=== PATIENT | male | born 1960 | race Caucasian/White ===

== ENCOUNTER 2016-12-17 11:10 | Emergency (ER) | payer OTHER ==
[~2016-12-17] VITALS: Ht 182.9 cm; Wt 75.0 kg
[~2016-12-17 11:10] MED LIST: OMEP40CA2 PO
[2016-12-17 11:12] VITALS: BP 134/87; PULSE 92; RESP 18; TEMP 98.1; O2SAT 96
[2016-12-17] MEDS ORDERED: SODIUM CHLOR 0.9% 1000 ML INJ 1,000 ML IV SCH (11:40)
[2016-12-17] MEDS ORDERED: PANTOPRAZOLE SODIUM 40 MG VIAL IVP ONE (11:45)
[2016-12-17] MEDS ORDERED: SODIUM CHLORIDE 0.9% FLUSH 5 ML FLUSH IVF PRN (11:45)
[2016-12-17] MEDS ORDERED: ONDANSETRON HCL 4 MG/2 ML VIAL IVP ONE (11:45)
--- NOTE | 2016-12-17 11:49 | PD ---
HPI Chief Complaint: Alcohol/Drug Intoxication Time Seen by Provider: 11:44 Travel History International Travel<30 days: No Contact w/Intl Traveler<30days: No Traveled to known affect area: No History of Present Illness HPI Patient comes in the emergency department reporting try detox himself from alcohol over the past week. Patient reports he has a detox center to go, but his family wanted him to be evaluate his he's been having diarrhea and vomiting over the past week. He reports his had similar but hers resolved. Patient denies any fevers, chest pain, shortness of breath, blood in vomit or stool, melena, or abdominal pain. Patient reports he has not been able to get that much secondary to not keeping much down. PFSH Past Medical History Anxiety: Yes Depression: Yes Cancer: No Cardiovascular Problems: Yes (HTN) Diabetes: No Endocrine: No Genitourinary: No Immune Disorder: No Musculoskeletal: Yes (NECK INJURY/STRAIN) Psychiatric: Yes (PTSD) Reproductive: No Respiratory: Yes (copd) Myocardial Infarction: No Past Surgical History Other Surgery: Yes Social History Alcohol Use: Yes (6pk day) Tobacco Use: Yes (2 PPD) Substance Use: Yes (marijuana) Allergies-Medications (Allergen,Severity, Reaction): Coded Allergies: Trazodone (Verified Adverse Reaction, Intermediate, 12/17/16) RESTLESS LEG SYMPTOMS Wellbutrin (Verified Adverse Reaction, Intermediate, 12/17/16) RESTLESS LEG SYMPTOMS Reported Meds & Prescriptions Reported Meds & Active Scripts Active Zofran Odt (Ondansetron Odt) 4 Mg Tab 4 Mg SL Q6HR PRN Review of Systems Except as stated in HPI: all other systems reviewed are Neg Physical Exam Narrative GENERAL: Well-developed, well nourished, in no acute distress, and non-ill appearing. SKIN: Warm and dry. HEAD: Atraumatic. Normocephalic. EYES: Pupils equal and round. EOMI. No scleral icterus. No injection or drainage. ENT: No nasal bleeding or discharge. Mucous membranes pink and moist. NECK: Trachea midline. No JVD. Supple. No nuclear rigidity. CARDIOVASCULAR: Regular rate and rhythm. No murmur appreciated. RESPIRATORY: No accessory muscle use. No respiratory distress. Clear to auscultation. Breath sounds equal bilaterally. GASTROINTESTINAL: Abdomen soft, non-tender, nondistended. Hepatic and splenic margins not palpable. Normal bowel sounds 4. No pulsatile mass. MUSCULOSKELETAL: No obvious deformities. No clubbing. No cyanosis. No edema. Full range of motion. NEUROLOGICAL: Awake and alert. No obvious cranial nerve deficits. Motor grossly within normal limits. Normal speech. PSYCHIATRIC: Appropriate mood and affect; insight and judgment normal. Data Data Last Documented VS Vital Signs Date Time Temp Pulse Resp B/P Pulse Ox O2 Delivery O2 Flow Rate FiO2 12/17/16 11:55 98 12/17/16 11:12 98.1 92 18 134/87 Room Air Orders Complete Blood Count With Diff (12/17/16 11:40) Comprehensive Metabolic Panel (12/17/16 11:40) Lipase (12/17/16 11:40) Prothrombin Time / Inr (Pt) (12/17/16 11:40) Act Partial Throm Time (Ptt) (12/17/16 11:40) Iv Access Insert/Monitor (12/17/16 11:40) Ecg Monitoring (12/17/16 11:40) Oximetry (12/17/16 11:40) NPO (12/17/16 11:40) Ondansetron Inj (Zofran Inj) (12/17/16 11:45) Pantoprazole Inj (Protonix Inj) (12/17/16 11:45) Sodium Chlor 0.9% 1000 Ml Inj (Ns 1000 M (12/17/16 11:40) Sodium Chloride 0.9% Flush (Ns Flush) (12/17/16 11:45) Lorazepam Inj (Ativan Inj) (12/17/16 13:45) Labs Laboratory Tests Test 12/17/16 12:25 White Blood Count 9.4 TH/MM3 Red Blood Count 4.52 MIL/MM3 Hemoglobin 14.9 GM/DL Hematocrit 42.4 % Mean Corpuscular Volume 93.8 FL Mean Corpuscular Hemoglobin 33.0 PG Mean Corpuscular Hemoglobin 35.2 % Concent Red Cell Distribution Width 13.2 % Platelet Count 303 TH/MM3 Mean Platelet Volume 7.7 FL Neutrophils (%) (Auto) 62.3 % Lymphocytes (%) (Auto) 29.8 % Monocytes (%) (Auto) 6.4 % Eosinophils (%) (Auto) 1.0 % Basophils (%) (Auto) 0.5 % Neutrophils # (Auto) 5.9 TH/MM3 Lymphocytes # (Auto) 2.8 TH/MM3 Monocytes # (Auto) 0.6 TH/MM3 Eosinophils # (Auto) 0.1 TH/MM3 Basophils # (Auto) 0.0 TH/MM3 CBC Comment DIFF FINAL Differential Comment Prothrombin Time 10.5 SEC Prothromb Time International 1.0 RATIO Ratio Activated Partial 33.2 SEC Thromboplast Time Sodium Level 127 MEQ/L Potassium Level 3.7 MEQ/L Chloride Level 93 MEQ/L Carbon Dioxide Level 24.4 MEQ/L Anion Gap 10 MEQ/L Blood Urea Nitrogen 7 MG/DL Creatinine 0.78 MG/DL Estimat Glomerular Filtration 104 ML/MIN Rate Random Glucose 106 MG/DL Calcium Level 7.9 MG/DL Total Bilirubin 0.8 MG/DL Aspartate Amino Transf 134 U/L (AST/SGOT) Alanine Aminotransferase 96 U/L (ALT/SGPT) Alkaline Phosphatase 112 U/L Total Protein 6.9 GM/DL Albumin 3.4 GM/DL Lipase 128 U/L MDM Medical Decision Making Medical Screen Exam Complete: Yes Emergency Medical Condition: Yes Differential Diagnosis Alcohol withdrawal, alcohol abuse, gastritis, vomiting, diarrhea, pancreatitis, electrolyte abnormality, dehydration, other Narrative Course The patient presented with vomiting and diarrhea.. The patient appeared comfortable, hydrated and the abdominal exam was unremarkable and nontender to me, and without defined focal tenderness there was no evidence of an acute, surgical abdomen at this time. The patient did not appear clinically significantly dehydrated however appeared mildly volume depleted and was given IVF hydration. The patient subjectively and objectively noted improvement. The patient was able to tolerate fluids at discharge. There was no clinical evidence to support cholecystitis/cholelithiasis, pancreatitis, perforation of gastric ulcer, colitis, diverticulitis, peritonitis, obstruction, volvulus, early appendicitis, or hernial incarceration or strangulation at this time. There was no evidence to support vascular pathology such as AAA, mesenteric ischemia, nor significant GIB. There was also no clinical evidence by history, exam or risk factors to suggest atypical presentation of cardiac disease such as ACS, AMI or atypical angina. No evidence to suggest genitourinary etiology as well. During the course of the ED visit, the patient noted improvement. Clinical picture was discussed with the patient, as well as plan of care. The patient was instructed to follow up with their physician. Abdominal pain warnings were discussed with the patient. The patient is to return if worsens, pain worsens or changes, develop fever, inability to tolerate fluids with or without vomiting, unable to establish follow up or as needed. The patient agrees with plan. Patient in no obvious distress upon re-evaluation. All pertinent laboratory result(s) discussed with patient. Patient was asked if they wanted to speak to my attending, which the patient did not wish to do at this time. Any questions/ concerns in reference to patient diagnosis/condition discussed and clarified prior to patient's discharge. Reinforced sheer importance of close follow up with patient's primary physician or primary care clinic. Instructed patient to return to ED immediately, if symptoms return/worsen. Pt showed understanding of above instructions. Further instructions and recommendations were detailed in discharge paperwork. Pt ambulated without difficulty out of ED at discharge. Diagnosis Primary Impression: Vomiting and diarrhea Additional Impression: ETOH abuse Referrals: [facility] Patient Instructions: Abuse of Alcohol (ED), Acute Diarrhea (GEN), Acute Nausea and Vomiting (ED), General Instructions Additional Instructions: Follow-up with your primary care physician, [facility], or other detox center for further evaluation. Take all medication as prescribed. Use over-the -counter Imodium-AD as needed for symptomatic relief of diarrhea. Follow instructions on the packaging. Drink plenty of non-caffeinated and nonalcoholic fluids. Return to the emergency department if symptoms get worse. Med/Other Pt SpecificInfo: Prescription(s) given Scripts Ondansetron Odt (Zofran Odt)4 Mg Tab4 Mg SL Q6HR PRN (Nausea/Vomiting) #9 TAB Ref 0 Prov:Av Monte MD 12/17/16 Disposition: 01 DISCHARGE HOME Condition: Stable David Weiner Dec 17, 2016 11:49
[2016-12-17 11:55] VITALS: O2SAT 98
[2016-12-17 12:47] LABS: AUTOMATED NEUTROPHIL # 5.9 TH/MM3 (1.8-7.7); BASOPHIL % 0.5 % (0.0-2.0); EOSINOPHIL # 0.1 TH/MM3 (0-0.4); HEMATOCRIT 42.4 % (39.0-51.0); HEMO FLAGS DIFF FINAL; LYMPH % 29.8 % (9.0-44.0); LYMPHOCYTE # 2.8 TH/MM3 (1.0-4.8); MEAN CELL VOLUME 93.8 FL (80.0-100.0); MEAN CORPUSCULAR HGB CONC 35.2 % (32.0-36.0); MONO % 6.4 % (0.0-8.0); NEUT % 62.3 % (16.0-70.0); PLATELET COUNT 303 TH/MM3 (150-450); RED BLOOD COUNT 4.52 MIL/MM3 (4.50-5.90); RED CELL DISTRIBUTION WIDTH 13.2 % (11.6-17.2); WHITE BLOOD COUNT 9.4 TH/MM3 (4.0-11.0)
[2016-12-17 12:55] LABS: APTT (PATIENT) 33.2 SEC (24.3-30.1); PROTHROMBIN TIME - PATIENT 10.5 SEC (9.8-11.6)
[2016-12-17 13:03] LABS: ALT (GPT) 96 U/L (12-78); ANION GAP 10 MEQ/L (5-15); AST (GOT) 134 U/L (15-37); BICARBONATE 24.4 MEQ/L (21.0-32.0); BLOOD UREA NITROGEN 7 MG/DL (7-18); CHLORIDE 93 MEQ/L (98-107); GLOMERULAR FILTRATION RATE 104 ML/MIN (>89); POTASSIUM 3.7 MEQ/L (3.5-5.1); SODIUM (NA) 127 MEQ/L (136-145)
[2016-12-17 13:05] LABS: ALKALINE PHOSPHATASE 112 U/L (45-117); TOTAL BILIRUBIN ADULT 0.8 MG/DL (0.2-1.0)
[2016-12-17] MEDS ORDERED: LORazepam 2 MG/ML VIAL IV PUSH ONE (13:45)
[2016-12-17] MEDS ORDERED: ZOFR4TAB3 SL (13:54)
== END 2016-12-17 14:57 | disposition home or self-care (01) ==
LOC: NEPE 11:10
DX: R19.7 Diarrhea, unspecified (principal); R11.10 Vomiting, unspecified; F10.10 Alcohol abuse, uncomplicated
CPT/HCPCS: 80053; 83690; 85025; 85610; 85730; 96361; 96374; 96375; 99284; C9113; J2060; J2405; J7030

== ENCOUNTER 2017-01-28 19:52 | Emergency (ER) | payer OTHER ==
[~2017-01-28] VITALS: Ht 182.9 cm; Wt 80.0 kg
[~2017-01-28 19:52] MED LIST changes: -OMEP40CA2 PO; +ZOFR4TAB3 SL
[2017-01-28 19:54] VITALS: BP 116/70; PULSE 104; RESP 16; TEMP 97.8; O2SAT 98
[2017-01-28 21:57] LABS: AUTOMATED NEUTROPHIL # 13.1 TH/MM3 (1.8-7.7); BASOPHIL # 0.1 TH/MM3 (0-0.2); BASOPHIL % 0.4 % (0.0-2.0); EOSINOPHIL # 0.2 TH/MM3 (0-0.4); EOSINOPHIL % 1.1 % (0.0-4.0); HEMATOCRIT 33.9 % (39.0-51.0); LYMPH % 9.6 % (9.0-44.0); LYMPHOCYTE # 1.6 TH/MM3 (1.0-4.8); MEAN CELL VOLUME 99.1 FL (80.0-100.0); MEAN CORPUSCULAR HEMOGLOBIN 33.9 PG (27.0-34.0); MEAN CORPUSCULAR HGB CONC 34.2 % (32.0-36.0); MONO % 11.7 % (0.0-8.0); NEUT % 77.2 % (16.0-70.0); PLATELET COUNT 404 TH/MM3 (150-450); RED BLOOD COUNT 3.41 MIL/MM3 (4.50-5.90); RED CELL DISTRIBUTION WIDTH 14.4 % (11.6-17.2); WHITE BLOOD COUNT 16.9 TH/MM3 (4.0-11.0)
[2017-01-28 21:58] LABS: HEMO FLAGS AUTO DIFF
[2017-01-28 22:20] LABS: ANION GAP 11 MEQ/L (5-15); AST (GOT) 37 U/L (15-37); BICARBONATE 24.4 MEQ/L (21.0-32.0); BLOOD UREA NITROGEN 9 MG/DL (7-18); CHLORIDE 102 MEQ/L (98-107); GLOMERULAR FILTRATION RATE 81 ML/MIN (>89); POTASSIUM 4.5 MEQ/L (3.5-5.1); SODIUM (NA) 137 MEQ/L (136-145)
[2017-01-28 22:23] LABS: ALKALINE PHOSPHATASE 145 U/L (45-117); ALT (GPT) 91 U/L (12-78); TOTAL BILIRUBIN ADULT 0.2 MG/DL (0.2-1.0)
[2017-01-28 22:25] LABS: SCAN/DIFF AUTO DIFF CONFIRMED
[2017-01-28 22:33] VITALS: BP 120/77; PULSE 93; RESP 18; O2SAT 98
[2017-01-28] MEDS ORDERED: BACT400T PO (22:36)
[2017-01-28] MEDS ORDERED: LIDOCAINE 2%/EPINEPHrine 1:100,000 30ML MDV INFIL ONE (22:45)
[2017-01-28] MEDS ORDERED: CLINDAMYCIN PHOS 600 MG/4 ML VIAL IM ONE (23:00)
--- NOTE | 2017-01-28 23:01 | PD ---
Physical Exam Date Seen by Provider: Jan 28, 2017 Narrative For full history and physical examination please see previous provider's note. I performed an I&D to the abscess. Data Data Last Documented VS Vital Signs Date Time Temp Pulse Resp B/P Pulse Ox O2 Delivery O2 Flow Rate FiO2 01/28/17 22:33 93 18 120/77 98 Room Air 01/28/17 19:54 97.8 Orders Complete Blood Count With Diff (01/28/17 20:42) Comprehensive Metabolic Panel (01/28/17 20:42) Lactic Acid Sepsis Protocol (01/28/17 20:42) Blood Culture (01/28/17 20:42) Lidocai-Epi 2%-1:100,000 Inj (Xylocaine- (01/28/17 22:45) Labs Laboratory Tests Test 01/28/17 21:22 White Blood Count 16.9 TH/MM3 Red Blood Count 3.41 MIL/MM3 Hemoglobin 11.6 GM/DL Hematocrit 33.9 % Mean Corpuscular Volume 99.1 FL Mean Corpuscular Hemoglobin 33.9 PG Mean Corpuscular Hemoglobin 34.2 % Concent Red Cell Distribution Width 14.4 % Platelet Count 404 TH/MM3 Mean Platelet Volume 7.6 FL Neutrophils (%) (Auto) 77.2 % Lymphocytes (%) (Auto) 9.6 % Monocytes (%) (Auto) 11.7 % Eosinophils (%) (Auto) 1.1 % Basophils (%) (Auto) 0.4 % Neutrophils # (Auto) 13.1 TH/MM3 Lymphocytes # (Auto) 1.6 TH/MM3 Monocytes # (Auto) 2.0 TH/MM3 Eosinophils # (Auto) 0.2 TH/MM3 Basophils # (Auto) 0.1 TH/MM3 CBC Comment AUTO DIFF Differential Comment AUTO DIFF CONFIRMED Sodium Level 137 MEQ/L Potassium Level 4.5 MEQ/L Chloride Level 102 MEQ/L Carbon Dioxide Level 24.4 MEQ/L Anion Gap 11 MEQ/L Blood Urea Nitrogen 9 MG/DL Creatinine 0.97 MG/DL Estimat Glomerular Filtration 81 ML/MIN Rate Random Glucose 91 MG/DL Lactic Acid Level 0.8 mmol/L Calcium Level 9.3 MG/DL Total Bilirubin 0.2 MG/DL Aspartate Amino Transf 37 U/L (AST/SGOT) Alanine Aminotransferase 91 U/L (ALT/SGPT) Alkaline Phosphatase 145 U/L Total Protein 7.6 GM/DL Albumin 2.9 GM/DL [facility] Medical Record Reviewed: Yes Supervised Visit with RABIA: Yes Procedures Procedure Narrative After the risks and benefits were discussed the following procedure was performed: INCISION AND DRAINAGE OF ABSCESS: The area was prepped and was sterilely draped. A subcutaneous wheal of 1 % Xylocaine with a total number 2mL was used to anesthetize the area. The area was properly anesthetized. A number 11 scalpel was used to make a 1 -cm incision across the area of the abscess. Cultures were obtained. The abscess was drained an irrigated with normal saline. Quarter inch iodoform packing was placed in the wound. Sterile dressing applied. Patient advised to have packing removed in two days. Mony Pastor Jan 28, 2017 23:01
[2017-01-29] MEDS ORDERED: ACETAMINOPHEN/HYDROcodone 325 MG/5 MG TAB PO ONE
[2017-01-29] MEDS ORDERED: CLIN1CAP6 PO (00:05)
--- NOTE | 2017-01-29 00:05 | PD ---
HPI Chief Complaint: Skin Problem Time Seen by Provider: 22:38 Travel History International Travel<30 days: No Contact w/Intl Traveler<30days: No Traveled to known affect area: No History of Present Illness HPI 56-year-old male presents with abscess to his left shoulder over the past week or so. He got antibiotics through the physician he saw and has been on them now for a couple of days. It is Bactrim. He states that the pain is worse and he has not had it drained yet. He denies other concurrent complaints. Quality is sharp. Severity is worsening. PFSH Past Medical History Anxiety: Yes Depression: Yes Cancer: No Cardiovascular Problems: Yes (HTN) Diabetes: No Endocrine: No Gastrointestinal Disorders: No Genitourinary: No Immune Disorder: No Musculoskeletal: Yes (NECK INJURY/STRAIN, L knee surgery) Psychiatric: Yes (PTSD) Reproductive: No Respiratory: Yes (copd) Myocardial Infarction: No Past Surgical History Other Surgery: Yes Social History Alcohol Use: Yes (6pk day - pt denies) Tobacco Use: Yes (2 PPD) Substance Use: Yes (marijuana) Allergies-Medications (Allergen,Severity, Reaction): Coded Allergies: Trazodone (Verified Adverse Reaction, Intermediate, 01/28/17) RESTLESS LEG SYMPTOMS Wellbutrin (Verified Adverse Reaction, Intermediate, 01/28/17) RESTLESS LEG SYMPTOMS Reported Meds & Prescriptions Reported Meds & Active Scripts Active Clindamycin (Clindamycin HCl) 300 Mg Cap 300 Mg PO TID 7 Days Zofran Odt (Ondansetron Odt) 4 Mg Tab 4 Mg SL Q6HR PRN Reported Bactrim (Sulfamethoxazole-Trimethoprim) 400-80 Mg Tab Unknown Dose PO BID Review of Systems Except as stated in HPI: all other systems reviewed are Neg Physical Exam Narrative GENERAL: Well-nourished, well-developed patient. SKIN: To left posterior shoulder near base of trapezius area there is a large abscess noted without active drainage without significant overlying cellulitis, no associated crepitus, abscess does not extend into neck or shoulder area HEAD: Normocephalic and atraumatic. EYES: No injection or drainage. ENT: No nasal drainage noted. NECK: Supple, trachea midline. CARDIOVASCULAR: Regular rate and rhythm RESPIRATORY: Breath sounds equal bilaterally. No accessory muscle use. EXTREMITIES: No edema. NEUROLOGICAL: Awake and alert. Motor and sensory grossly within normal limits. Normal speech. Data Data Last Documented VS Vital Signs Date Time Temp Pulse Resp B/P Pulse Ox O2 Delivery O2 Flow Rate FiO2 01/28/17 22:33 93 18 120/77 98 Room Air 01/28/17 19:54 97.8 Orders Complete Blood Count With Diff (01/28/17 20:42) Comprehensive Metabolic Panel (01/28/17 20:42) Lactic Acid Sepsis Protocol (01/28/17 20:42) Blood Culture (01/28/17 20:42) Lidocai-Epi 2%-1:100,000 Inj (Xylocaine- (01/28/17 22:45) Wound Culture And Gram Stain (01/28/17 23:00) Clindamycin Inj (Cleocin Inj) (01/28/17 23:00) Acetamin-Hydrocod 325-5 Mg ([place] 5-325 (01/29/17 00:00) Labs Laboratory Tests Test 01/28/17 21:22 White Blood Count 16.9 TH/MM3 Red Blood Count 3.41 MIL/MM3 Hemoglobin 11.6 GM/DL Hematocrit 33.9 % Mean Corpuscular Volume 99.1 FL Mean Corpuscular Hemoglobin 33.9 PG Mean Corpuscular Hemoglobin 34.2 % Concent Red Cell Distribution Width 14.4 % Platelet Count 404 TH/MM3 Mean Platelet Volume 7.6 FL Neutrophils (%) (Auto) 77.2 % Lymphocytes (%) (Auto) 9.6 % Monocytes (%) (Auto) 11.7 % Eosinophils (%) (Auto) 1.1 % Basophils (%) (Auto) 0.4 % Neutrophils # (Auto) 13.1 TH/MM3 Lymphocytes # (Auto) 1.6 TH/MM3 Monocytes # (Auto) 2.0 TH/MM3 Eosinophils # (Auto) 0.2 TH/MM3 Basophils # (Auto) 0.1 TH/MM3 CBC Comment AUTO DIFF Differential Comment AUTO DIFF CONFIRMED Sodium Level 137 MEQ/L Potassium Level 4.5 MEQ/L Chloride Level 102 MEQ/L Carbon Dioxide Level 24.4 MEQ/L Anion Gap 11 MEQ/L Blood Urea Nitrogen 9 MG/DL Creatinine 0.97 MG/DL Estimat Glomerular Filtration 81 ML/MIN Rate Random Glucose 91 MG/DL Lactic Acid Level 0.8 mmol/L Calcium Level 9.3 MG/DL Total Bilirubin 0.2 MG/DL Aspartate Amino Transf 37 U/L (AST/SGOT) Alanine Aminotransferase 91 U/L (ALT/SGPT) Alkaline Phosphatase 145 U/L Total Protein 7.6 GM/DL Albumin 2.9 GM/DL MDM Medical Decision Making Medical Screen Exam Complete: Yes Emergency Medical Condition: Yes Medical Record Reviewed: Yes (past history confirmed) Interpretation(s) CBC & BMP Diagram 01/28/17 21:22 Differential Diagnosis Abscess, cellulitis, bite Narrative Course Blood work shows elevated white count; patient needs I and D which PA will assist with Will dose with clindamycin here and patient will come back in 2 days for recheck ,Patient denies any new complaints and states that they are feeling better. Patient happy with care, all questions answered. Patient knows that follow up is incumbent on them and to return to the emergency room immediately if new or worsening symptoms develop. Patient given strict return precautions, vitals reviewed and are normal, agrees to further workup as an outpatient. Diagnosis Primary Impression: Back abscess Patient Instructions: General Instructions Additional Instructions: Return in 2 days for recheck, return sooner with any vomiting, fever or other concerns, continue Bactrim and fill clindamycin and start taking this Med/Other Pt SpecificInfo: Prescription(s) given Scripts Clindamycin 300 Mg [id number] Mg PO TID 7 Days Ref 0 Prov:Linda Hill MD 01/29/17 Disposition: 01 DISCHARGE HOME Condition: Stable Linda Hill MD Jan 29, 2017 00:05
== END 2017-01-29 01:00 | disposition home or self-care (01) ==
LOC: NEPE 19:52
DX: L02.212 Cutaneous abscess of back [any part, except buttock and flank] (principal); B95.62 Methicillin resistant Staphylococcus aureus infection as the cause of diseases classified elsewhere; I10 Essential (primary) hypertension; J44.9 Chronic obstructive pulmonary disease, unspecified; F43.10 Post-traumatic stress disorder, unspecified; F17.210 Nicotine dependence, cigarettes, uncomplicated
CPT/HCPCS: 10061; 80053; 83605; 85025; 86403; 87040; 87070; 87186; 87205; 96372

== ENCOUNTER 2017-01-31 08:50 | Emergency (ER) | payer OTHER ==
[~2017-01-31] VITALS: Ht 182.9 cm; Wt 80.0 kg
[~2017-01-31 08:50] MED LIST changes: +BACT400T PO; +CLIN1CAP6 PO
[2017-01-31 08:52] VITALS: BP 126/80; PULSE 94; RESP 18; TEMP 98.1; O2SAT 96
--- NOTE | 2017-01-31 10:01 | PD ---
HPI Chief Complaint: Wound/Suture/Staple Re-Check Time Seen by Provider: 09:58 Travel History International Travel<30 days: No Contact w/Intl Traveler<30days: No Traveled to known affect area: No History of Present Illness HPI 56-year-old male presents to the emergency department for evaluation of abscess that was incised and drained on January 28, 2017. He was prescribed clindamycin. He states it is improving. He denies any fevers or chills. He denies any other complaints. PFSH Past Medical History Anxiety: Yes Depression: Yes Cancer: No Cardiovascular Problems: Yes (HTN) Diabetes: No Endocrine: No Gastrointestinal Disorders: No Genitourinary: No Immune Disorder: No Musculoskeletal: Yes (NECK INJURY/STRAIN, L knee surgery) Psychiatric: Yes (PTSD) Reproductive: No Respiratory: Yes (copd) Myocardial Infarction: No Past Surgical History Other Surgery: Yes Social History Alcohol Use: Yes (6pk day - pt denies) Tobacco Use: Yes (2 PPD) Substance Use: Yes (marijuana) Allergies-Medications (Allergen,Severity, Reaction): Coded Allergies: Trazodone (Verified Adverse Reaction, Intermediate, 01/28/17) RESTLESS LEG SYMPTOMS Wellbutrin (Verified Adverse Reaction, Intermediate, 01/28/17) RESTLESS LEG SYMPTOMS Reported Meds & Prescriptions Reported Meds & Active Scripts Active Clindamycin (Clindamycin HCl) 300 Mg Cap 300 Mg PO TID 7 Days Zofran Odt (Ondansetron Odt) 4 Mg Tab 4 Mg SL Q6HR PRN Reported Bactrim (Sulfamethoxazole-Trimethoprim) 400-80 Mg Tab Unknown Dose PO BID Review of Systems Except as stated in HPI: all other systems reviewed are Neg Physical Exam Narrative GENERAL: Well-developed well-nourished male patient, ambulatory. Afebrile. SKIN: Warm and dry. Patient has abscess, status post incised and drained, with packing noted. No surrounding erythema or fluctuance. HEAD: Normocephalic. Atraumatic. EYES: No scleral icterus. No injection or drainage. CARDIOVASCULAR: Regular rate and rhythm without murmurs, gallops, or rubs. RESPIRATORY: No accessory muscle use. MUSCULOSKELETAL: No cyanosis, or edema. Data Data Last Documented VS Vital Signs Date Time Temp Pulse Resp B/P Pulse Ox O2 Delivery O2 Flow Rate FiO2 01/31/17 08:52 98.1 94 18 126/80 96 MDM Medical Decision Making Medical Screen Exam Complete: Yes Emergency Medical Condition: Yes Medical Record Reviewed: Yes Differential Diagnosis Wound check versus abscess versus cellulitis Narrative Course 56 year old male presents to the emergency department for evaluation of an abscess to his left upper back status post incised and drained 3 days ago. Physical exam shows well-healing abscess. Packing is removed without difficulty. Abscess is irrigated. Sterile dressing is applied after antibiotic ointment is applied. Overall, symptoms are improving the patient states it feels much better. Patient is to continue antibiotic and is instructed on proper wound care. Patient is agreeable. The patient was discharged in stable condition with instructions, including return instructions and follow up instructions. Diagnosis Primary Impression: Back abscess Referrals: Primary Care Physician as needed Patient Instructions: Abscess Follow-up (ED), General Instructions Additional Instructions: Continue antibiotic as prescribed until gone. Clean twice daily with soap and water and apply [id number] antibiotic ointment. Warm, moist compresses. Keep clean and dry. Follow-up with your primary care physician. Return to the emergency department for any acute worsening of symptoms. Med/Other Pt SpecificInfo: No Change to Meds Disposition: 01 DISCHARGE HOME Condition: Stable Aishwarya Tovar Jan 31, 2017 10:01
== END 2017-01-31 10:32 | disposition home or self-care (01) ==
LOC: NEPB 08:50
DX: Z09 Encounter for follow-up examination after completed treatment for conditions other than malignant neoplasm (principal)
CPT/HCPCS: 99281

== ENCOUNTER 2018-04-26 17:31 | Emergency (ER) | payer SELFPAY ==
[~2018-04-26] VITALS: Ht 182.9 cm; Wt 72.5 kg
[~2018-04-26 17:31] MED LIST changes: -CLIN1CAP6 PO; +CLIN300C5 PO
[2018-04-26 17:40] VITALS: BP 113/76; PULSE 96; RESP 20; TEMP 98.3; O2SAT 97
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
[2018-04-26] MEDS ORDERED: LORazepam 2 MG/ML VIAL IV PUSH ONE (19:15)
[2018-04-26] MEDS ORDERED: SODIUM CHLOR 0.9% 1000 ML INJ 1,000 ML IV ONE (19:15)
[2018-04-26 20:22] LABS: BILIRUBIN, URINE NEG (NEG); BLOOD, URINE SMALL (NEG); GLUCOSE,URINE NEG (NEG); HYALINE CAST, URINE 2 /lpf (RARE); KETONE, URINE NEG (NEG); MUCUS URINE FEW /lpf (OCC); NITRITE,URINE NEG (NEG); PH, URINE 5.5 (5.0-8.5); URINE COLOR YELLOW (YELLW/STRAW); URINE LEUKOCYTE ESTERASE NEG (NEG)
[2018-04-26] MEDS ORDERED: CHLO25CA9 PO (20:41)
--- NOTE | 2018-04-27 14:43 | EKG ---
Date Performed: 04/26/2018 Time Performed: 18:26:53 PTAGE: 57 years EKG: Sinus rhythm POSSIBLE RIGHT VENTRICULAR CONDUCTION DELAY BORDERLINE ECG Since the PREVIOUS TRACING , no significant change noted PREVIOUS TRACIN07/15/2014 10.52 DOCTOR: Mj Leblanc Interpretating Date/Time 04/27/2018 14:42:22
== END 2018-04-26 21:25 | disposition home or self-care (01) ==
LOC: NEPD 17:31
DX: F10.239 Alcohol dependence with withdrawal, unspecified (principal); F12.90 Cannabis use, unspecified, uncomplicated; F17.200 Nicotine dependence, unspecified, uncomplicated
CPT/HCPCS: 80307; 81001; 93005; 96374; 99284; J2060; J7030

== ENCOUNTER 2018-06-02 14:36 | Inpatient (IN) ==
[2018-06-02] MEDS ORDERED: Midazolam Inj 5 MG/ML 1 ML Vial ONE ×2 (14:48→14:55)
[2018-06-02] MEDS ORDERED: ceFAZolin 2 GM Premix Inj 2 GM/50 ML PIGGYBACK IV.SIG ONE (14:49)
[2018-06-02] MEDS ORDERED: Diphtheria/Tetanus/Pertussis Vaccine Inj 0.5 ML Syringe IM ONE (14:50)
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
[2018-06-02 14:57] LABS: Baso # (Auto) 0.1 th/mm3 (0.0-0.2); Baso % (Auto) 1.1 % (0.0-2.0); Eos # (Auto) 0.1 th/mm3 (0.0-0.4); Hematocrit 41.6 % (39.0-51.0); Hemoglobin 14.2 gm/dL (13.0-17.0); Mean Corpuscular Volume 99.9 fL (80.0-100.0); Mean Platelet Volume 7.6 fL (7.0-11.0); Mono # (Auto) 0.4 th/mm3 (0.0-0.9); Mono % (Auto) 4.9 % (0.0-8.0); Platelet Count 260 th/mm3 (150-450); Red Blood Count 4.16 mil/mm3 (4.50-5.90); Red Cell Distribution Width 13.7 % (11.6-17.2); White Blood Count 8.6 th/mm3 (4.0-11.0)
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
[2018-06-02 15:08] LABS: Activated Partial Thrombo Time 23.6 sec (24.3-30.1); INR 0.9 Ratio; Prothrombin Time 9.6 sec (9.8-11.6)
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
[2018-06-02] MEDS ORDERED: Propofol Inj 500 MG/50 ML Vial ONE (16:03)
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
[2018-06-02] MEDS: Sod Chloride 0.9% Inj 1,000 ML IV.CONT SCH (18:26)
[2018-06-02] MEDS: Propofol 1000 mg/100 ml Inj 1,000 MG/100 ML BOTTLE IV.CONT PRN (18:53)
[2018-06-02] MEDS: fentaNYL 10 mcg/mL Premix Drip 2,500 MCG/250 ML BAG IV.SIG PRN (18:53)
[2018-06-02 20:02] LABS: ABG Base Excess -1.6 mmol/L (-2-2); ABG PCO2 34 mmHg (38-42); ABG PO2 160 mmHg (61-120)
[2018-06-03] MEDS: Sod Chloride 0.9% Inj 1,000 ML IV.CONT SCH ×2 (01:37→09:18)
[2018-06-03] MEDS: Propofol 1000 mg/100 ml Inj 1,000 MG/100 ML BOTTLE IV.CONT PRN ×2 (03:05→12:48)
[2018-06-03 07:19] LABS: Baso # (Auto) 0.1 th/mm3 (0.0-0.2); Eos # (Auto) 0.1 th/mm3 (0.0-0.4); Eos % (Auto) 0.9 % (0.0-4.0); Hematocrit 35.6 % (39.0-51.0); Lymph # (Auto) 2.5 th/mm3 (1.0-4.8); Lymph % (Auto) 29.4 % (9.0-44.0); Mean Corpuscular HGB Conc 33.8 % (32.0-36.0); Mean Corpuscular Hemoglobin 33.7 pg (27.0-34.0); Mean Corpuscular Volume 99.7 fL (80.0-100.0); Mono # (Auto) 0.6 th/mm3 (0.0-0.9); Mono % (Auto) 7.4 % (0.0-8.0); Neut # (Auto) 5.2 th/mm3 (1.8-7.7); Neut % (Auto) 61.3 % (16.0-70.0); Platelet Count 169 th/mm3 (150-450); Red Blood Count 3.57 mil/mm3 (4.50-5.90); Red Cell Distribution Width 13.9 % (11.6-17.2); White Blood Count 8.4 th/mm3 (4.0-11.0)
[2018-06-03 07:41] LABS: Calcium 7.6 mg/dL (8.5-10.1); Carbon Dioxide 22.5 meq/L (21.0-32.0); Potassium 3.9 meq/L (3.5-5.1)
[2018-06-03] MEDS: fentaNYL 10 mcg/mL Premix Drip 2,500 MCG/250 ML BAG IV.SIG PRN (09:13)
[2018-06-03] MEDS: Pantoprazole Inj 40 MG Vial IV.PUSH SCH (09:19)
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
[2018-06-03] MEDS ORDERED: Potassium Chlor 20 mEq Premix 20 MEQ/100 ML PIGGYBACK IV.SIG PRN (10:23)
[2018-06-03] MEDS ORDERED: Potassium Phosphate Inj 30 MMOL in Sodium Chlor 0.9% Inj 250 ML IV.SIG PRN (10:23)
[2018-06-03] MEDS ORDERED: Potassium Phosphate 500 MG Soluble Tablet PO PRN ×2 (10:23)
[2018-06-03] MEDS ORDERED: Magnesium Sulfate Inj 4 GM in Sodium Chlor 0.9% Inj 92 ML IV.SIG PRN (10:23)
[2018-06-03] MEDS ORDERED: Sodium Phosphate Inj 30 MMOL in Sodium Chlor 0.9% Inj 250 ML IV.SIG PRN (10:23)
[2018-06-03] MEDS ORDERED: Magnesium Sulfate Inj 2 GM in Sodium Chlor 0.9% Inj 96 ML IV.SIG PRN (10:23)
[2018-06-03] MEDS ORDERED: Potassium Chlor 40 mEq Premix 40 MEQ/100 ML PIGGYBACK IV.SIG PRN ×2 (10:23)
[2018-06-03] MEDS ORDERED: Magnesium Oxide 400 MG Tablet PO PRN (10:23)
[2018-06-03] MEDS ORDERED: levETIRAcetam 500mg/100mL Inj 100 ML IV.SIG SCH (11:00)
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
[2018-06-03] MEDS: LEVETIRACETAM 500 MG/100 ML IV.SIG SCH (12:45)
[2018-06-03] MEDS: Oral Hygiene Kit OROPHARYNG SCH ×2 (13:17→16:00)
--- NOTE | 2018-06-03 17:39 | P.PNNS ---
Subjective Interval history: Nurses report that patient went off sedation will awaken and follow commands Physical Exam Vital signs: Vital Signs 06/02/18 17:43 06/02/18 20:00 06/02/18 22:25 Temperature 98.8 F 99.1 F Pulse Rate 90 73 Respiratory Rate 16 16 Blood Pressure 109/71 Pulse Oximetry 100 100 06/03/18 00:00 06/03/18 04:00 06/03/18 05:02 Temperature 99.1 F 100.9 F H Pulse Rate 68 75 Respiratory Rate 16 16 16 Blood Pressure 102/70 99/63 L Pulse Oximetry 100 98 99 06/03/18 08:00 06/03/18 08:31 06/03/18 09:00 Temperature 100.8 F H Pulse Rate 90 75 Respiratory Rate 16 16 Blood Pressure 118/74 Pulse Oximetry 92 L 100 06/03/18 11:45 06/03/18 12:00 06/03/18 16:00 Temperature 101.1 F H 100.9 F H Pulse Rate 91 H 88 73 Respiratory Rate 20 16 16 Blood Pressure 114/72 112/72 Pulse Oximetry 100 06/03/18 16:48 Temperature Pulse Rate 77 Respiratory Rate 16 Blood Pressure Pulse Oximetry 100 Intake & Output 06/02/18 06/03/18 06/03/18 18:59 06:59 18:59 Intake Total 1100 / 1100 1600 / 1600 Output Total 400 / 400 500 / 500 Balance -400 / -400 600 / 600 1600 / 1600 Weight 57.1 kg 80.9 kg 78.7 kg Intake: IV 1100 / 1100 1600 / 1600 Diprivan 1000 mg/100 ml Inj 1, 100 / 100 100 / 100 000 mg In 100 ml @ 5 MCG/KG/MIN 1.713 mls/hr IV.CONT TITRATE PRN Rx#:[id number] NS Inj 1,000 ML @ 125 mls/hr IV 1000 / 1000 1000 / 1000 .CONT .Q8H [facility] Rx#:[id number] Ofirmev Inj 1,000 mg In 100 ml 100 / 100 @ 400 mls/hr IV.SIG Q6H PRN Rx# :[id number] fentaNYL 10 mcg/mL Premix Drip 250 / 250 2,500 mcg In 250 ml @ 50 MCG/HR 5 mls/hr IV.SIG TITRATE PRN Rx #:[id number] Keppra 500 mg/100 mL Premix 100 150 / 150 ML @ 400 mls/hr IV.SIG Q12H [facility] Rx#:[id number] Output: Urine Amount (Catheter) 400 / 400 500 / 500 Indwelling Temp Sensing 400 / 400 500 / 500 Catheter Other: Weight On Admission 80.9 kg Narrative: Patient still intubated and sedated. Exam limited due to the sedation - Urinary Catheter Management Indwelling Temp Sensing Catheter Cath placed during this visit: yes Reason for continuing: Hourly intake/output Insertion date: 06/02/18 Insertion time: 17:55 Assessment and Plan - Plan Patient is stable and appears to be improving neurologically To be considered for extubation and then will further assess
[2018-06-03 18:45] LABS: ABG Base Excess -1.9 mmol/L (-2-2); ABG PCO2 47 mmHg (38-42); ABG PO2 76 mmHg (61-120)
[2018-06-03] MEDS: Chlorhexidine 0.12% Oral Kit 15 ML UDC OROPHARYNG SCH (20:39)
[2018-06-03] MEDS: Senna/Docusate Sodium 8.6/50 MG Tablet PO SCH (20:40)
[2018-06-04] MEDS: LEVETIRACETAM 500 MG/100 ML IV.SIG SCH (00:25)
[2018-06-04] MEDS: Propofol 1000 mg/100 ml Inj 1,000 MG/100 ML BOTTLE IV.CONT PRN ×2 (00:26→09:30)
[2018-06-04] MEDS: Oral Hygiene Kit OROPHARYNG SCH ×4 (00:27→23:08)
--- NOTE | 2018-06-04 04:52 | XR ---
EXAM DATE: 06/04/2018 4:19 AM EDT AGE/SEX: 57 years / Male INDICATIONS: Shortness of breath. CLINICAL DATA: This is the patient's subsequent encounter. Patient reports that signs and symptoms h ave been present for 3 days and indicates a pain score of Nonresponsive. MEDICAL/SURGICAL HISTORY: Non-responsive. Non-responsive. COMPARISON: C, CHEST 1V SINGLE AP, 06/02/2018. . FINDINGS: Stable ETT with NGT coursing beyond the GE junction. Mild airspace disease in the left lower lung zon e. Cardiomediastinal contours are within normal limits. Remainder of the exam is unchanged. CONCLUSION: 1. Stable ETT. NGT beyond the GE junction. 2. Left lower lung zone airspace disease, likely atelectasis/contusion. Electronically signed by: Brian Kellogg MD 06/04/2018 4:50 AM EDT
[2018-06-04 06:32] LABS: ABG PCO2 47 mmHg (38-42); ABG PO2 72 mmHg (61-120)
[2018-06-04 06:49] LABS: Baso # (Auto) 0.1 th/mm3 (0.0-0.2); Baso % (Auto) 0.7 % (0.0-2.0); Eos # (Auto) 0.1 th/mm3 (0.0-0.4); Eos % (Auto) 1.6 % (0.0-4.0); Hematocrit 34.5 % (39.0-51.0); Hemoglobin 11.7 gm/dL (13.0-17.0); Lymph # (Auto) 1.7 th/mm3 (1.0-4.8); Lymph % (Auto) 21.4 % (9.0-44.0); Mean Corpuscular Hemoglobin 34.2 pg (27.0-34.0); Mean Corpuscular Volume 100.7 fL (80.0-100.0); Mono # (Auto) 0.5 th/mm3 (0.0-0.9); Mono % (Auto) 5.8 % (0.0-8.0); Neut # (Auto) 5.5 th/mm3 (1.8-7.7); Neut % (Auto) 70.5 % (16.0-70.0); Platelet Count 122 th/mm3 (150-450); Red Blood Count 3.43 mil/mm3 (4.50-5.90); Red Cell Distribution Width 13.5 % (11.6-17.2); White Blood Count 7.7 th/mm3 (4.0-11.0)
[2018-06-04 07:08] LABS: Anion Gap 9 meq/L (5-15); Blood Urea Nitrogen 11 mg/dL (7-18); Calcium 7.5 mg/dL (8.5-10.1); Carbon Dioxide 24.1 meq/L (21.0-32.0); Chloride 112 meq/L (98-107); Glomerular Filtration Rate Greater Than 89 mL/min (>89); Glucose,Random 85 mg/dL (74-106); Potassium 3.5 meq/L (3.5-5.1); Sodium 145 meq/L (136-145)
[2018-06-04] MEDS: fentaNYL 10 mcg/mL Premix Drip 2,500 MCG/250 ML BAG IV.SIG PRN (07:30)
[2018-06-04] MEDS: Sod Chloride 0.9% Inj 1,000 ML IV.CONT SCH ×2 (07:30→18:18)
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
[2018-06-04] MEDS: Pantoprazole Inj 40 MG Vial IV.PUSH SCH (08:26)
[2018-06-04] MEDS: Senna/Docusate Sodium 8.6/50 MG Tablet PO SCH ×2 (08:26→20:28)
--- NOTE | 2018-06-04 09:35 | ECG ---
Date Performed: 06/03/2018 Time Performed: 13:59:49 PTAGE: 57 years EKG: Sinus rhythm NORMAL ECG NO PREVIOUS TRACING DOCTOR: Kit Ramírez Interpretating Date/Time 06/04/2018 09:32:05
[2018-06-04] MEDS: Chlorhexidine 0.12% Oral Kit 15 ML UDC OROPHARYNG SCH ×2 (10:31→20:29)
--- NOTE | 2018-06-04 12:32 | CT ---
EXAM DATE: 06/04/2018 12:26 PM EDT AGE/SEX: 57 years / Male INDICATIONS: CLOSE HEAD TRAUMA CLINICAL DATA: This is the patient's subsequent encounter. Patient reports that signs and symptoms h ave been present for 2 days and indicates a pain score of Nonresponsive. MEDICAL/SURGICAL HISTORY: . CLOSE HEAD TRAUMA None. RADIATION DOSE: 38.39 CTDI (mGy) [place] [facility] [place]02/2018. . TECHNIQUE: CT of the head without contrast. Using automated exposure control and adjustment of the mA and/or kV according to patient size, radiation dose was kept as low as reasonably achievable to ob tain optimal diagnostic quality images. DICOM format image data is available electronically for revi ew and comparison. FINDINGS: Cerebrum: The ventricles are normal for age. No evidence of midline shift, mass lesion, hemorrhage or acute infarction. No extraaxial fluid collections are seen. 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 Posterior Fossa: The cerebellum and brainstem are intact. The 4th ventricle is midline. The cerebe llopontine angle is unremarkable. Extracranial: No significant change in the multiple left-sided facial fractures. There is a fluid le santiago in the left maxillary sinus. Mucosal thickening throughout the ethmoid sinuses bilaterally. Skull: No definite depressed skull fractures. Stable compared to the prior exam. CONCLUSION: 1. 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 2. No focal or acute intracranial hemorrhage is seen at this time. 3. Stable multiple left-sided facial fractures. Electronically signed by: Spencer Paulino MD 06/04/2018 12:31 PM EDT
[2018-06-04] MEDS: Potassium Chloride 25 MEQ Effervescent Tablet PO PRN (12:51)
[2018-06-04] MEDS ORDERED: Propranolol 10 MG Tablet PO SCH (13:00)
--- NOTE | 2018-06-04 13:00 | P.PNNS ---
Subjective Interval history: 06/04: no changes to neuro checks overnight, for follow up CT Brain today Physical Exam Vital signs: Vital Signs 06/03/18 16:00 06/03/18 16:48 06/03/18 20:00 Temperature 100.9 F H 100.4 F H Pulse Rate 73 77 89 Respiratory Rate 16 16 16 Blood Pressure 112/72 117/80 Pulse Oximetry 100 100 06/03/18 20:35 06/03/18 22:52 06/03/18 23:34 Temperature Pulse Rate 100 H 85 Respiratory Rate 17 22 16 Blood Pressure Pulse Oximetry 100 06/04/18 00:00 06/04/18 00:02 06/04/18 02:00 Temperature 101.3 F H Pulse Rate 80 74 Respiratory Rate 16 16 Blood Pressure 88/56 L Pulse Oximetry 96 06/04/18 03:29 06/04/18 03:30 06/04/18 04:00 Temperature 100.8 F H Pulse Rate 69 72 Respiratory Rate 16 17 16 Blood Pressure 98/69 L Pulse Oximetry 92 L 06/04/18 06:00 06/04/18 07:46 06/04/18 07:53 Temperature Pulse Rate 73 73 Respiratory Rate 16 16 Blood Pressure Pulse Oximetry 97 06/04/18 08:00 06/04/18 09:00 06/04/18 11:08 Temperature 102 F H Pulse Rate 87 86 95 H Respiratory Rate 15 Blood Pressure 115/70 Pulse Oximetry 94 L 06/04/18 11:45 Temperature Pulse Rate Respiratory Rate Blood Pressure Pulse Oximetry 100 Intake & Output 06/03/18 06/04/18 06/04/18 18:59 06:59 18:59 Intake Total 1600 / 1600 450 / 450 1095 / 1095 Output Total 450 / 450 350 / 350 Balance 1150 / 1150 100 / 100 1095 / 1095 Weight 78.7 kg 77 kg Intake: IV 1600 / 1600 450 / 450 1095 / 1095 Diprivan 1000 mg/100 ml Inj 1, 100 / 100 100 / 100 95 / 95 000 mg In 100 ml @ 5 MCG/KG/MIN 1.713 mls/hr IV.CONT TITRATE PRN Rx#:[id number] NS Inj 1,000 ML @ 40 mls/hr IV. 1000 / 1000 1000 / 1000 CONT .Q24H [facility] Rx#:[id number] Ofirmev Inj 1,000 mg In 100 ml 100 / 100 100 / 100 @ 400 mls/hr IV.SIG Q6H PRN Rx# :[id number] fentaNYL 10 mcg/mL Premix Drip 250 / 250 250 / 250 2,500 mcg In 250 ml @ 50 MCG/HR 5 mls/hr IV.SIG TITRATE PRN Rx #:[id number] Keppra 500 mg/100 mL Premix 100 150 / 150 ML @ 400 mls/hr IV.SIG Q12H [facility] Rx#:[id number] Output: Urine 350 / 350 Urine Amount (Catheter) 450 / 450 Indwelling Temp Sensing 450 / 450 Catheter Gastric Drainage 0 / 0 Orogastric Tube 0 / 0 Other: Weight On Admission 80.9 kg Narrative: General: well nourished adult male in no acute distress HEENT: normocephalic, nonicteric sclera. ET tube in place Neck: No JVD, trachea midline Neuro: sedated, not following commands for testing. CN: pupils equal. Heart: regular rate rhythm Respiratory: mechanically ventilated. - Urinary Catheter Management Indwelling Temp Sensing Catheter Cath placed during this visit: yes Reason for continuing: Hourly intake/output Insertion date: 06/02/18 Insertion time: 17:55 Assessment and Plan - Plan cont neuro checks follow up neuro exam follow up CT Brain today, also check carotids with CTA Dr. Tg russell family at bedside
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
--- NOTE | 2018-06-04 22:55 | CT ---
EXAM DATE: 06/04/2018 12:55 PM EDT AGE/SEX: 57 years / Male INDICATIONS: Closed head injury. CLINICAL DATA: This is the patient's subsequent encounter. Patient reports that signs and symptoms h ave been present for 2 days and indicates a pain score of Nonresponsive. MEDICAL/SURGICAL HISTORY: . closed head injury None. RADIATION DOSE: 28.49 CTDI (mGy) COMPARISON: [facility] [place] CERVICAL [place] W/O CONTRAST, 06/02/2018. . TECHNIQUE: Volumetric scanning was performed using a multirow detector CT scanner during bolus infus ion of 80 ml Omnipaque 350 (iohexol) nonionic water-soluble contrast as a single exam dose. The da ta was postprocessed with a variety of visualization algorithms including full-volume maximum intensi ty projection, multiplanar sliding thin-slab reformation, curved-planar reformation, and surface-rend ering techniques. Using automated exposure control and adjustment of the mA and/or kV according to p atient size, radiation dose was kept as low as reasonably achievable to obtain optimal diagnostic jakub lity images. DICOM format image data is available electronically for review and comparison. Elevated flow velocities and ICA/CCA ratios have been found to correlate with increased degrees of ve ssel stenosis, calculated as percentage of diameter relative to a normal segment of distal ICA/CCA. FINDINGS: Aortic Arch: There is a three-vessel origin of the great vessels from the aorta. No evidence of ost ial narrowing Right Carotid: The common carotid artery is intact. The carotid bulb has a normal configuration wit hout ulceration or narrowing. The internal carotid artery lumen is smooth without stenosis. Tortuous distal cervical segment. The external carotid artery is intact. Left Carotid: The common carotid artery is intact. The carotid bulb has a normal configuration with out ulceration or narrowing. The internal carotid artery lumen is smooth without stenosis. The exte rnal carotid artery is intact. Vertebrals: Dominant left vertebral artery. No stenotic lesions or dissection. General Findings: Patient is intubated with NG tube in place. The right lung apices demonstrate minim al posterior groundglass opacities likely reflecting atelectasis. CONCLUSION: 1. Unremarkable CTA examination of the neck. 2. Specifically, no evidence for dissection or significant flow-limiting stenosis. Electronically signed by: Brian Kellogg MD 06/04/2018 10:53 PM EDT
[2018-06-04] MEDS ORDERED: Sod Chloride 0.9% Inj 1,000 ML IV.SIG ONE (23:00)
[2018-06-05] MEDS: Oral Hygiene Kit OROPHARYNG SCH ×3 (04:04→16:32)
[2018-06-05 04:24] LABS: Baso # (Auto) 0.1 th/mm3 (0.0-0.2); Baso % (Auto) 0.5 % (0.0-2.0); Eos # (Auto) 0.2 th/mm3 (0.0-0.4); Eos % (Auto) 1.4 % (0.0-4.0); Hematocrit 37.9 % (39.0-51.0); Hemoglobin 12.8 gm/dL (13.0-17.0); Lymph # (Auto) 2.3 th/mm3 (1.0-4.8); Lymph % (Auto) 18.4 % (9.0-44.0); Mean Corpuscular HGB Conc 33.8 % (32.0-36.0); Mean Corpuscular Hemoglobin 34.4 pg (27.0-34.0); Mean Corpuscular Volume 101.9 fL (80.0-100.0); Mean Platelet Volume 8.6 fL (7.0-11.0); Mono # (Auto) 0.8 th/mm3 (0.0-0.9); Mono % (Auto) 6.2 % (0.0-8.0); Neut # (Auto) 9.3 th/mm3 (1.8-7.7); Neut % (Auto) 73.5 % (16.0-70.0); Platelet Count 144 th/mm3 (150-450); Red Blood Count 3.72 mil/mm3 (4.50-5.90); Red Cell Distribution Width 13.2 % (11.6-17.2); White Blood Count 12.6 th/mm3 (4.0-11.0)
--- NOTE | 2018-06-05 04:29 | XR ---
EXAM DATE: 06/05/2018 4:02 AM EDT AGE/SEX: 57 years / Male INDICATIONS: Trauma. CLINICAL DATA: This is the patient's subsequent encounter. Patient reports that signs and symptoms h ave been present for 4 - 6 days and indicates a pain score of Nonresponsive. MEDICAL/SURGICAL HISTORY: Non-responsive. Non-responsive. COMPARISON: [facility], CHEST 1V SINGLE AP, 06/04/2018. . FINDINGS: Stable ETT and NGT. Extreme left lung base is omitted from the image. There is grossly stable left lo wer lung zone airspace disease. Cardiomediastinal contours are within normal limits. Remainder of exa m is unchanged. CONCLUSION: 1. Limited exam due to omission of the extreme left lung base. 2. Grossly stable left lower lung zone airspace disease. Electronically signed by: Brian Kellogg MD 06/05/2018 4:28 AM EDT
[2018-06-05] MEDS ORDERED: Sod Chloride 0.9% Inj 1,000 ML IV.SIG SCH (04:30)
[2018-06-05 04:52] LABS: Anion Gap 7 meq/L (5-15); Blood Urea Nitrogen 9 mg/dL (7-18); Calcium 7.9 mg/dL (8.5-10.1); Carbon Dioxide 24.8 meq/L (21.0-32.0); Chloride 112 meq/L (98-107); Glomerular Filtration Rate Greater Than 89 mL/min (>89); Glucose,Random 113 mg/dL (74-106); Sodium 144 meq/L (136-145)
[2018-06-05 06:42] LABS: ABG Base Excess 0.2 mmol/L (-2-2); ABG PCO2 41 mmHg (38-42); ABG PO2 68 mmHg (61-120)
[2018-06-05] MEDS: fentaNYL 10 mcg/mL Premix Drip 2,500 MCG/250 ML BAG IV.SIG PRN ×2 (07:43→22:35)
[2018-06-05] MEDS ORDERED: Albumin Human 5% Inj 500 ML IV.SIG ONE ×2 (08:00→10:48)
[2018-06-05] MEDS: Senna/Docusate Sodium 8.6/50 MG Tablet PO SCH ×2 (08:10→20:23)
[2018-06-05] MEDS: Chlorhexidine 0.12% Oral Kit 15 ML UDC OROPHARYNG SCH ×2 (08:11→20:23)
[2018-06-05] MEDS: Pantoprazole Inj 40 MG Vial IV.PUSH SCH (08:11)
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
[2018-06-05] MEDS: Propofol 1000 mg/100 ml Inj 1,000 MG/100 ML BOTTLE IV.CONT PRN (14:04)
--- NOTE | 2018-06-05 15:25 | ECHRPT ---
Indication: SOB CONCLUSIONS Normal left ventricular size. Wall thickness is normal. The left ventricular systolic function is normal with an estimated ejection fraction in the range of 55-60%. Atrial septal aneurysm is present (benign finding). There is trace tricuspid valve regurgitation. The estimated pulmonary arterial pressure is 36 mmHg. BP: / HR: Rhythm: MEASUREMENTS (Male / Female) Normal Values Technical Quality: 2D ECHO LV Diastolic Diameter PLAX 4.4 cm 4.2 - 5.9 / 3.9 - 5.3 cm LV Systolic Diameter PLAX 3.3 cm IVS Diastolic Thickness 0.9 cm 0.6 - 1.0 / 0.6 - 0.9 cm LVPW Diastolic Thickness 0.7 cm 0.6 - 1.0 / 0.6 - 0.9 cm LV Relative Wall Thickness 0.4 RV Internal Dim ED PLAX 1.9 cm LA Systolic Diameter LX 3.4 cm 3.0 - 4.0 / 2.7 - 3.8 cm DOPPLER Mitral E Point Velocity 89.8 cm/s Mitral A Point Velocity 82.9 cm/s Mitral E to A Ratio 1.1 TR Peak Velocity 278.0 cm/s TR Peak Gradient 30.9 mmHg Right Atrial Pressure 5.0 mmHg Pulmonary Artery Systolic Pressu 35.9 mmHg Right Ventricular Systolic Press 35.9 mmHg FINDINGS LEFT VENTRICLE Normal left ventricular size. Wall thickness is normal. The left ventricular systolic function is normal with an estimated ejection fraction in the range of 55-60%. RIGHT VENTRICLE Normal right ventricular size and systolic function. LEFT ATRIUM The left atrial size is normal. RIGHT ATRIUM The right atrial size is normal. ATRIAL SEPTUM Atrial septal aneurysm is present (benign finding). AORTA The aortic root and proximal ascending aorta are normal in size on limited imaging. MITRAL VALVE Structurally normal mitral valve. No mitral valve stenosis or regurgitation. AORTIC VALVE Trileaflet aortic valve. No aortic valve stenosis or regurgitation. TRICUSPID VALVE There is trace tricuspid valve regurgitation. The estimated pulmonary arterial pressure is 36 mmHg. PULMONARY VALVE No pulmonary valve regurgitation or stenosis. VESSELS The inferior vena cava is normal in size. PERICARDIUM No pericardial effusion. Nain He MD (Electronically Signed) Final Date:05 June 2018 15:25
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
[2018-06-05] MEDS: Sod Chloride 0.9% Inj 1,000 ML IV.CONT SCH (16:56)
[2018-06-05] MEDS ORDERED: Vancomycin Consult Pharmacy 1 EACH OTHER SCH (17:00)
[2018-06-05] MEDS ORDERED: Vancomycin Inj 1,000 MG in Sodium Chlor 0.9% Inj 250 ML IV.SIG SCH (17:00)
[2018-06-05] MEDS ORDERED: Vancomycin Inj 1,750 MG in Sodium Chlor 0.9% Inj 500 ML IV.SIG ONE (19:30)
[2018-06-05] MEDS: Heparin - SQ 10,000 UNITS/ML Vial SQ SCH (22:33)
[2018-06-05] MEDS ORDERED: Ketorolac Inj 30 MG/ML (IVP) Vial IV.PUSH SCH (23:15)
[2018-06-06] MEDS: Oral Hygiene Kit OROPHARYNG SCH ×4 (01:39→15:07)
[2018-06-06] MEDS: Sod Chloride 0.9% Inj 1,000 ML IV.SIG SCH (01:39)
[2018-06-06] MEDS: Propofol 1000 mg/100 ml Inj 1,000 MG/100 ML BOTTLE IV.CONT PRN ×4 (02:13→18:16)
[2018-06-06] MEDS ORDERED: Midazolam Inj 5 MG/ML 1 ML Vial ONE (02:40)
--- NOTE | 2018-06-06 02:48 | XR ---
EXAM DATE: 06/06/2018 2:14 AM EDT AGE/SEX: 57 years / Male INDICATIONS: Shortness of breath. CLINICAL DATA: This is the patient's subsequent encounter. Patient reports that signs and symptoms h ave been present for 1 week and indicates a pain score of Nonresponsive. MEDICAL/SURGICAL HISTORY: Non-responsive. Non-responsive. COMPARISON: [facility], CHEST 1V SINGLE AP, 06/05/2018. . FINDINGS: Stable ETT and NGT. Stable left lower lung zone airspace disease and hazy opacity likely reflecting p leural effusion. New right lower lung zone airspace disease. Cardiac base on contours are stable. Rem ainder of exam is unchanged. CONCLUSION: 1. Stable 8 ETT and NGT. 2. Small left pleural effusion and associated left lower lobe airspace disease. 3. Developing right lower lung zone airspace disease. Electronically signed by: Brian Kellogg MD 06/06/2018 2:47 AM EDT
--- NOTE | 2018-06-06 03:09 | P.PNCC ---
Critical Care Event Note Code activated: No Narrative: This case had a high probability of a clinically significant, sudden, or life threatening deterioration of this patient's condition which required my full and direct attention, intervention and personal management. Called by RN for fever range 103,and desaturation to 78%-for short time, requiring 100% O2 to keep SPo2 in the high 80 ies range.CXR shows infiltrate b/ l lungs,thick secretions,already on empiric abx Responded well to Bilevel -abg ordered central line,brandon camara family updated Critical care time: 30 - 74 mins
--- NOTE | 2018-06-06 03:13 | P.PCN ---
Date of procedure: 06/06/18 Pre-op diagnosis: Sepsis Post-op diagnosis: same Procedure: Right SC CVP line placement. Patient right clavicular area was prepped and draped.Single stick SC vein easily cannulated -triple lumen catheter inserted with good flush and blood return. CXR shows good position.
--- NOTE | 2018-06-06 04:00 | XR ---
EXAM DATE: 06/06/2018 3:53 AM EDT AGE/SEX: 57 years / Male INDICATIONS: Central line placement. CLINICAL DATA: This is the patient's subsequent encounter. Patient reports that signs and symptoms h ave been present for 1 week and indicates a pain score of Nonresponsive. MEDICAL/SURGICAL HISTORY: Non-responsive. Non-responsive. COMPARISON: [facility], CHEST 1V SINGLE AP, 06/06/2018. . FINDINGS: Stable ETT, NGT and right subclavian central line. Stable bilateral lower lung zone airspace disease, left greater than right cardiomediastinal contours are within normal limits. Bony thorax is intact. CONCLUSION: 1. No significant interval change. 2. Stable tubes and lines. 3. Stable bilateral lower lung zone airspace disease, left greater than right. Electronically signed by: Brian Kellogg MD 06/06/2018 3:58 AM EDT
[2018-06-06 04:03] LABS: ABG Base Excess -2.3 mmol/L (-2-2); ABG PCO2 52 mmHg (38-42); ABG PO2 126 mmHg (61-120)
[2018-06-06 05:06] LABS: Baso % (Auto) 0.2 % (0.0-2.0); Eos % (Auto) 0.1 % (0.0-4.0); Hematocrit 32.2 % (39.0-51.0); Hemoglobin 10.7 gm/dL (13.0-17.0); Lymph # (Auto) 0.9 th/mm3 (1.0-4.8); Lymph % (Auto) 6.6 % (9.0-44.0); Mean Corpuscular HGB Conc 33.2 % (32.0-36.0); Mean Corpuscular Hemoglobin 33.8 pg (27.0-34.0); Mean Corpuscular Volume 101.7 fL (80.0-100.0); Mean Platelet Volume 8.4 fL (7.0-11.0); Mono # (Auto) 0.9 th/mm3 (0.0-0.9); Mono % (Auto) 6.7 % (0.0-8.0); Neut % (Auto) 86.4 % (16.0-70.0); Platelet Count 129 th/mm3 (150-450); Red Blood Count 3.17 mil/mm3 (4.50-5.90); Red Cell Distribution Width 13.4 % (11.6-17.2); White Blood Count 13.9 th/mm3 (4.0-11.0)
[2018-06-06 05:11] LABS: ABG Base Excess -2.1 mmol/L (-2-2); ABG PCO2 54 mmHg (38-42); ABG PO2 48 mmHg (61-120)
[2018-06-06 05:15] LABS: Alanine Aminotransferase 65 U/L (12-78); Anion Gap 6 meq/L (5-15); Aspartate Aminotransferase 59 U/L (15-37); Blood Urea Nitrogen 7 mg/dL (7-18); Calcium 7.8 mg/dL (8.5-10.1); Carbon Dioxide 24.8 meq/L (21.0-32.0); Chloride 113 meq/L (98-107); Glomerular Filtration Rate Greater Than 89 mL/min (>89); Glucose,Random 109 mg/dL (74-106); Potassium 3.9 meq/L (3.5-5.1); Sodium 144 meq/L (136-145)
[2018-06-06 05:17] LABS: Alkaline Phosphatase 93 U/L (45-117); Total Protein 6.2 g/dL (6.4-8.2)
[2018-06-06] MEDS: Heparin - SQ 10,000 UNITS/ML Vial SQ SCH ×3 (05:35→21:32)
[2018-06-06] MEDS: Vancomycin Inj 1,500 MG in Sodium Chlor 0.9% Inj 500 ML IV.SIG SCH ×2 (08:07→20:20)
[2018-06-06] MEDS: Senna/Docusate Sodium 8.6/50 MG Tablet PO SCH ×2 (08:07→20:21)
[2018-06-06] MEDS: Chlorhexidine 0.12% Oral Kit 15 ML UDC OROPHARYNG SCH ×2 (08:08→20:21)
[2018-06-06] MEDS: Pantoprazole Inj 40 MG Vial IV.PUSH SCH (08:08)
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
[2018-06-06] MEDS: fentaNYL 10 mcg/mL Premix Drip 2,500 MCG/250 ML BAG IV.SIG PRN (13:26)
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
[2018-06-06 13:49] LABS: ABG Base Excess -4.5 mmol/L (-2-2); ABG PCO2 52 mmHg (38-42); ABG PO2 89 mmHg (61-120)
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
[2018-06-06] MEDS: Piperacil/Tazo 4.5 GM Premix 4.5 GM/100 ML BAG IV.SIG SCH ×2 (16:40→22:10)
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
[2018-06-06] MEDS: Povidone Iodine 10% Top Soln 118 ML Bottle TOPICAL SCH (17:39)
[2018-06-06 18:20] LABS: ABG Base Excess -3.7 mmol/L (-2-2); ABG PCO2 60 mmHg (38-42); ABG PO2 106 mmHg (61-120)
[2018-06-06] MEDS: Sod Chloride 0.9% Inj 1,000 ML IV.CONT SCH (20:21)
[2018-06-06 21:04] LABS: ABG Base Excess -2.4 mmol/L (-2-2); ABG PCO2 55 mmHg (38-42); ABG PO2 89 mmHg (61-120)
[2018-06-07] MEDS: Oral Hygiene Kit OROPHARYNG SCH ×4 (01:00→16:57)
[2018-06-07] MEDS: fentaNYL 10 mcg/mL Premix Drip 2,500 MCG/250 ML BAG IV.SIG PRN ×2 (01:00→12:18)
[2018-06-07] MEDS: Piperacil/Tazo 4.5 GM Premix 4.5 GM/100 ML BAG IV.SIG SCH ×4 (04:09→23:02)
[2018-06-07] MEDS: Propofol 1000 mg/100 ml Inj 1,000 MG/100 ML BOTTLE IV.CONT PRN ×2 (04:31→09:08)
[2018-06-07 05:41] LABS: Baso % (Auto) 0.2 % (0.0-2.0); Eos # (Auto) 0.1 th/mm3 (0.0-0.4); Eos % (Auto) 1.5 % (0.0-4.0); Hematocrit 28.2 % (39.0-51.0); Hemoglobin 9.7 gm/dL (13.0-17.0); Lymph # (Auto) 0.7 th/mm3 (1.0-4.8); Lymph % (Auto) 8.1 % (9.0-44.0); Mean Corpuscular HGB Conc 34.3 % (32.0-36.0); Mean Corpuscular Hemoglobin 34.6 pg (27.0-34.0); Mean Corpuscular Volume 100.6 fL (80.0-100.0); Mono # (Auto) 0.8 th/mm3 (0.0-0.9); Mono % (Auto) 9.3 % (0.0-8.0); Neut # (Auto) 7.1 th/mm3 (1.8-7.7); Neut % (Auto) 80.9 % (16.0-70.0); Platelet Count 135 th/mm3 (150-450); Red Cell Distribution Width 13.5 % (11.6-17.2); White Blood Count 8.8 th/mm3 (4.0-11.0)
[2018-06-07] MEDS: Heparin - SQ 10,000 UNITS/ML Vial SQ SCH ×3 (05:41→23:03)
[2018-06-07 05:43] LABS: ABG Base Excess -1.1 mmol/L (-2-2); ABG PCO2 54 mmHg (38-42); ABG PO2 100 mmHg (61-120)
[2018-06-07 06:09] LABS: Anion Gap 8 meq/L (5-15); Blood Urea Nitrogen 6 mg/dL (7-18); Calcium 8.2 mg/dL (8.5-10.1); Carbon Dioxide 24.3 meq/L (21.0-32.0); Chloride 112 meq/L (98-107); Glomerular Filtration Rate Greater Than 89 mL/min (>89); Glucose,Random 116 mg/dL (74-106); Potassium 3.6 meq/L (3.5-5.1); Sodium 144 meq/L (136-145)
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
[2018-06-07] MEDS: Sod Chloride 0.9% Inj 1,000 ML IV.SIG SCH ×3 (08:22→15:27)
[2018-06-07] MEDS: Povidone Iodine 10% Top Soln 118 ML Bottle TOPICAL SCH (08:23)
[2018-06-07] MEDS: Chlorhexidine 0.12% Oral Kit 15 ML UDC OROPHARYNG SCH ×2 (08:23→20:24)
[2018-06-07] MEDS ORDERED: Pharmacy Ordered Lab Info OTHER ONE (08:45)
[2018-06-07] MEDS: Pantoprazole Inj 40 MG Vial IV.PUSH SCH (08:46)
[2018-06-07] MEDS: Senna/Docusate Sodium 8.6/50 MG Tablet PO SCH ×2 (08:47→20:24)
[2018-06-07] MEDS ORDERED: Bisacodyl 10 MG Supp RECTAL ONE (10:01)
[2018-06-07] MEDS: Vancomycin Inj 1,500 MG in Sodium Chlor 0.9% Inj 500 ML IV.SIG SCH (10:56)
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
[2018-06-07] MEDS: Sod Chloride 0.9% Inj 1,000 ML IV.CONT SCH (18:11)
[2018-06-07] MEDS: Vancomycin Inj 1,750 MG in Sodium Chlor 0.9% Inj 500 ML IV.SIG SCH (20:24)
[2018-06-08] MEDS: Oral Hygiene Kit OROPHARYNG SCH ×4 (00:20→16:28)
[2018-06-08] MEDS: Sod Chloride 0.9% Inj 1,000 ML IV.SIG SCH ×2 (02:58→12:41)
[2018-06-08 04:13] LABS: Baso % (Auto) 0.5 % (0.0-2.0); Eos # (Auto) 0.2 th/mm3 (0.0-0.4); Eos % (Auto) 3.7 % (0.0-4.0); Hematocrit 26.3 % (39.0-51.0); Hemoglobin 8.9 gm/dL (13.0-17.0); Lymph # (Auto) 0.6 th/mm3 (1.0-4.8); Lymph % (Auto) 9.1 % (9.0-44.0); Mean Corpuscular HGB Conc 33.7 % (32.0-36.0); Mean Corpuscular Hemoglobin 34.3 pg (27.0-34.0); Mean Corpuscular Volume 101.8 fL (80.0-100.0); Mean Platelet Volume 7.9 fL (7.0-11.0); Mono # (Auto) 0.7 th/mm3 (0.0-0.9); Mono % (Auto) 11.1 % (0.0-8.0); Neut # (Auto) 5.1 th/mm3 (1.8-7.7); Neut % (Auto) 75.6 % (16.0-70.0); Platelet Count 154 th/mm3 (150-450); Red Blood Count 2.58 mil/mm3 (4.50-5.90); Red Cell Distribution Width 13.3 % (11.6-17.2); White Blood Count 6.7 th/mm3 (4.0-11.0)
[2018-06-08 04:35] LABS: Anion Gap 7 meq/L (5-15); Blood Urea Nitrogen 8 mg/dL (7-18); Calcium 8.1 mg/dL (8.5-10.1); Carbon Dioxide 26.8 meq/L (21.0-32.0); Chloride 113 meq/L (98-107); Glomerular Filtration Rate Greater Than 89 mL/min (>89); Glucose,Random 113 mg/dL (74-106); Potassium 3.5 meq/L (3.5-5.1); Sodium 147 meq/L (136-145)
[2018-06-08] MEDS: fentaNYL 10 mcg/mL Premix Drip 2,500 MCG/250 ML BAG IV.SIG PRN ×2 (04:44→21:01)
[2018-06-08] MEDS: Piperacil/Tazo 4.5 GM Premix 4.5 GM/100 ML BAG IV.SIG SCH ×3 (04:44→16:30)
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
[2018-06-08 06:04] LABS: ABG Base Excess -0.3 mmol/L (-2-2); ABG PCO2 52 mmHg (38-42); ABG PO2 131 mmHg (61-120)
[2018-06-08] MEDS: Heparin - SQ 10,000 UNITS/ML Vial SQ SCH ×3 (06:20→21:08)
[2018-06-08] MEDS: Potassium Chloride 25 MEQ Effervescent Tablet PO PRN (06:28)
[2018-06-08] MEDS: Chlorhexidine 0.12% Oral Kit 15 ML UDC OROPHARYNG SCH ×2 (07:34→21:07)
--- NOTE | 2018-06-08 08:10 | P.PNNPSY ---
- Behavior Intact: Impulsive/agitated - Psychosocial Moderate: Psychosocial, Family/other adjustment, Realistic expectation, Self- esteem/confidence - Progress Notes/Response to Treatment Contents of Sessions: Adjustment, Level of consciousness Time with Patient: 15 minutes Premorbid Psychological Status: Premorbid Cognitive, Emotional and Behavioral Status: Deferred. The patient has high school years of education and a solid work history prior to this injury. The patient's prior psychiatric difficulties, if any, are unknown. Substance abuse history is unknown. Behavioral Reactions of Patient and Family/Support System: Deferred. The patients family is experiencing ongoing issues of adjustment given the nature of the injury, and this aspect of recovery will require ongoing monitoring. Emotional/Behavioral Status of Patient and Family/Support System: Deferred. Pertinent issues, if appropriate to this patients clinical care, are described in detail above. Maximizing Acute Care Outcome: It is recommended that the patient be monitored for emergent behavioral impulsivity as the medical condition evolves. This patients neuropathological challenges may limit rehabilitation potential going forward, and these challenges will require specialized therapeutic skills to maximize outcome. Additionally, the patients family is experiencing ongoing issues of adjustment given the traumatic nature of the injury, and they may benefit from ongoing psychological assistance. At this point in the recovery process, the patient does not have cognitive capacity as the patient is unable to understand a situation and its likely consequences, nor is the patient able to manipulate information rationally. Cognitive capacity will be assessed throughout the recovery process. Anticipated Problems: Ongoing areas of concern will include behavioral impulsivity, lack of insight and judgment, which is expected to improve with time and treatment. Presently , the patient is critically ill. Given the severity of the patient's injuries it is my clinical opinion that this patient will be unable to return to any type of productive employment for at least one year, perhaps longer and likely never. This patient is not considered safe to discharge home without supervision. Treatment Plan: This clinician will continue to follow with you throughout the course of this patients critical care treatment, and I will be available to meet with the patients family/support system to facilitate their understanding and the ongoing care of their family member. The goals of neuropsychological intervention shall be both educational and supportive to the family/support system as is deemed clinically appropriate. [place] COG Scale: Level IV Disinhibition Score: 15.75 Aggression Score: 14.00 Lability Score: 14.00 Agitated Behavior Total Score: 15 Impression: 57 year old [place]/p [place] [facility] [place] [facility] [place] Progress Note Narrative: PTD 6. The patient is clearly improving with improving PF ratio, he remains sedated but follows off sedation. Agitation/restlessness remain managed, and he is considered a sedated Ranch[place] IV. ABS = 15 (15.7, 14,14). I will follow. - Diagnosis (1) Major neurocognitive disorder as late effect of traumatic brain injury with behavioral disturbance Status: Acute
[2018-06-08] MEDS: Vancomycin Inj 1,750 MG in Sodium Chlor 0.9% Inj 500 ML IV.SIG SCH ×2 (08:23→21:08)
[2018-06-08] MEDS: Pantoprazole Inj 40 MG Vial IV.PUSH SCH (08:23)
[2018-06-08] MEDS: Senna/Docusate Sodium 8.6/50 MG Tablet PO SCH ×2 (08:24→21:07)
[2018-06-08] MEDS: Povidone Iodine 10% Top Soln 118 ML Bottle TOPICAL SCH (08:24)
[2018-06-08] MEDS ORDERED: Magnesium Citrate Liq 300 ML Bottle PO ONE (10:26)
[2018-06-08] MEDS ORDERED: Bisacodyl 10 MG Supp RECTAL ONE (10:27)
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
[2018-06-08] MEDS: Sod Chloride 0.9% Inj 1,000 ML IV.CONT SCH (16:27)
[2018-06-08] MEDS: Propofol 1000 mg/100 ml Inj 1,000 MG/100 ML BOTTLE IV.CONT PRN (18:30)
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
[2018-06-09] MEDS: Piperacil/Tazo 4.5 GM Premix 4.5 GM/100 ML BAG IV.SIG SCH ×5 (00:36→22:37)
[2018-06-09 07:19] LABS: Baso % (Auto) 0.5 % (0.0-2.0); Eos # (Auto) 0.2 th/mm3 (0.0-0.4); Eos % (Auto) 3.3 % (0.0-4.0); Hematocrit 24.9 % (39.0-51.0); Hemoglobin 8.4 gm/dL (13.0-17.0); Lymph # (Auto) 0.7 th/mm3 (1.0-4.8); Lymph % (Auto) 10.6 % (9.0-44.0); Mean Corpuscular HGB Conc 33.6 % (32.0-36.0); Mean Corpuscular Hemoglobin 34.2 pg (27.0-34.0); Mean Corpuscular Volume 101.6 fL (80.0-100.0); Mean Platelet Volume 7.7 fL (7.0-11.0); Mono # (Auto) 0.9 th/mm3 (0.0-0.9); Mono % (Auto) 14.5 % (0.0-8.0); Neut # (Auto) 4.4 th/mm3 (1.8-7.7); Neut % (Auto) 71.1 % (16.0-70.0); Platelet Count 212 th/mm3 (150-450); Red Blood Count 2.45 mil/mm3 (4.50-5.90); Red Cell Distribution Width 13.3 % (11.6-17.2); White Blood Count 6.2 th/mm3 (4.0-11.0)
[2018-06-09] MEDS: Sod Chloride 0.9% Inj 1,000 ML IV.SIG SCH (07:31)
[2018-06-09] MEDS: Heparin - SQ 10,000 UNITS/ML Vial SQ SCH ×3 (07:33→22:40)
[2018-06-09] MEDS: Oral Hygiene Kit OROPHARYNG SCH ×4 (07:34→23:56)
[2018-06-09 07:38] LABS: Calcium 8.3 mg/dL (8.5-10.1); Carbon Dioxide 23.8 meq/L (21.0-32.0); Potassium 3.3 meq/L (3.5-5.1)
[2018-06-09] MEDS: Senna/Docusate Sodium 8.6/50 MG Tablet PO SCH ×2 (08:19→21:13)
[2018-06-09] MEDS: Potassium Chloride 25 MEQ Effervescent Tablet PO PRN (08:19)
[2018-06-09] MEDS: Pantoprazole Inj 40 MG Vial IV.PUSH SCH (08:20)
[2018-06-09] MEDS: Vancomycin Inj 1,750 MG in Sodium Chlor 0.9% Inj 500 ML IV.SIG SCH (08:24)
[2018-06-09] MEDS: Chlorhexidine 0.12% Oral Kit 15 ML UDC OROPHARYNG SCH ×2 (08:24→23:53)
[2018-06-09] MEDS: Povidone Iodine 10% Top Soln 118 ML Bottle TOPICAL SCH (08:24)
[2018-06-09] MEDS ORDERED: Pharmacy Ordered Lab Info OTHER ONE (08:45)
[2018-06-09] MEDS ORDERED: Bisacodyl 10 MG Supp RECTAL PRN (10:27)
[2018-06-09 11:20] LABS: ABG PCO2 41 mmHg (38-42); ABG PO2 66 mmHg (61-120)
[2018-06-09] MEDS: fentaNYL 10 mcg/mL Premix Drip 2,500 MCG/250 ML BAG IV.SIG PRN (15:30)
--- NOTE | 2018-06-09 17:33 | P.PNNS ---
Subjective Interval history: Remains intubated and ventilated He is following commands on sedation holiday His PF ratio is 250-is a clear improvement His fever curve and WBC improved as well ID consult for antibiotics plastics consult appreciated for the large abrasion of the face Still unable to obtain OMFS consultation-for facial fractures-this may require transfer to another institute if surgical Physical Exam Vital signs: Vital Signs 06/08/18 18:00 06/08/18 20:00 06/08/18 20:15 Temperature 98.8 F Pulse Rate 83 74 Respiratory Rate 14 12 Blood Pressure 120/62 Pulse Oximetry 100 99 06/08/18 22:00 06/09/18 00:00 06/09/18 01:31 Temperature 98.9 F Pulse Rate 72 75 Respiratory Rate 14 14 Blood Pressure 112/72 Pulse Oximetry 97 98 06/09/18 02:00 06/09/18 03:34 06/09/18 04:00 Temperature 100.4 F H Pulse Rate 88 80 Respiratory Rate 17 14 Blood Pressure 104/62 Pulse Oximetry 96 98 06/09/18 06:00 06/09/18 07:58 06/09/18 08:00 Temperature 98.8 F Pulse Rate 82 90 Respiratory Rate 15 22 Blood Pressure 146/73 H Pulse Oximetry 93 L 90 L 06/09/18 10:00 06/09/18 12:00 06/09/18 12:56 Temperature 98.8 F Pulse Rate 77 93 H Respiratory Rate 15 14 Blood Pressure 112/65 Pulse Oximetry 94 L 94 L 06/09/18 14:00 06/09/18 15:35 06/09/18 15:37 Temperature 98.6 F Pulse Rate 91 H 80 80 Respiratory Rate 17 Blood Pressure 110/61 Pulse Oximetry 99 Intake & Output 06/08/18 06/09/18 06/09/18 18:59 06:59 18:59 Intake Total 4064.5 / 4064.5 2200.5 / 2200.5 867.5 / 867.5 Output Total 750 / 750 1000 / 1000 Balance 3314.5 / 3314.5 1200.5 / 1200.5 867.5 / 867.5 Weight 96.5 kg Intake: IV 2717.5 / 2717.5 1967.5 / 1967.5 867.5 / 867.5 Diprivan 1000 mg/100 ml Inj 1, 100 / 100 000 mg In 100 ml @ 5 MCG/KG/MIN 1.713 mls/hr IV.CONT TITRATE PRN Rx#:[id number] NS Inj 1,000 ML @ 40 mls/hr IV. 1000 / 1000 CONT .Q24H AURELIO Rx#:[id number] Zosyn 4.5 GM Premix 4.5 gm In 200 / 200 100 / 100 100 / 100 100 ml @ 200 mls/hr IV.SIG Q6H AURELIO Rx#:[id number] NS Inj 1,000 ML @ 100 mls/hr IV 1000 / 1000 1000 / 1000 .SIG .Q10H AURELIO Rx#:[id number] Vancomycin Inj 1,750 MG In NS 517.5 / 517.5 517.5 / 517.5 517.5 / 517.5 Inj 500 ML @ 250 mls/hr IV.SIG Q12H AURELIO Rx#:[id number] fentaNYL 10 mcg/mL Premix Drip 250 / 250 250 / 250 2,500 mcg In 250 ml @ 50 MCG/HR 5 mls/hr IV.SIG TITRATE PRN Rx #:[id number] Tube Feeding 227 / 227 233 / 233 Tube Irrigant 120 / 120 Water Bolus Amount 0 / 0 Other 1000 / 1000 Output: Urine 750 / 750 Urine Amount (Catheter) 1000 / 1000 Indwelling Temp Sensing 1000 / 1000 Catheter Gastric Drainage 0 / 0 Orogastric Tube 0 / 0 Other: Other Intake Source Saline Solution Date of Last Bowel Movement 06/07/18 06/07/18 06/09/18 # Bowel Movements 0 Narrative: Mr Domingo remains intubated and sedated. Localizes to painful stimulus with all 4 extremities and follows simple commands. Cranial Nerves: Pupils equal, 3 mm round, reactive to light. Eyes appear conjugated. There was no nystagmus, no papilledema. Face musculature appeared symmetrical at rest. Face sensation, olfaction, and hearing cannot be adequately assessed due to his neurological condition. The patient has a corneal reflex. He has a gag reflex. The sternocleidomastoid and trapezius were symmetrical. Cervical Spine: His neck is soft, supple, without nuchal rigidity. Motor: His muscle tone and bulk are normal. He moves purpusfully all 4 extremities symmetrically. Follos simple commands intermittently Reflexes: Deep tendon reflexes are 2+ and symmetrical in the biceps, triceps, and brachioradialis, bilaterally, in the upper extremities. In the lower extremities, the patellar and ankles are 2+, bilaterally. There is a bilateral plantar flexion response. There is no clonus or other abnormal reflexes noted. Sensory: On examination there there is response to painful stimuli, localizing with both upper and lower extremities. Cerebellar: Examination cannot be adequately assessed due to the patient's neurological condition. Lungs: clear Heart. Regular rhythm and rate Skin: warm and dry - Urinary Catheter Management Indwelling Temp Sensing Catheter Cath placed during this visit: yes Reason for continuing: Other continuation reason Insertion date: 06/02/18 Insertion time: 17:55 Assessment and Plan - Assessment (1) CHI (closed head injury) Code(s): S09.90XA - Unspecified injury of head, initial encounter Status: Acute Qualifiers: Encounter type: initial encounter Qualified Code(s): S09.90XA - Unspecified injury of head, initial encounter - Plan Remains intubated and ventilated He is following commands today on sedation holiday His fever curve and WBC improved, ID consultation appreciated for antibiotics plastics consult appreciated for the large abrasion of the face Still unable to obtain OMFS consultation-for facial fractures. This is just unnaceptable Bilateral pnmeumonia, and ARDS improving, still requiring mechanical ventilation His FiO2 was reduced to 50% which was initially 100 PF ratio examined at 150-he is tolerating the APRV ventilator mode very well Chest x-ray shows bilateral infiltrates and he has been started on empiric antibiotics for aspiration pneumonia He remains critical condition due to his intracranial injuries as well as skull fracture and multiple facial fractures Still we were not able to obtain OMFS surgeon to assess the patient T4 T5 and T6 endplate fractures HE REMAINS intubated and mechanically ventilated Continue neuroprotective measures including propofol fentanyl Continue Keppra FOR SEIZURE PROPHYLAXIS He had aspirated on the scene and had a difficult intubation. Unfortunately his pulmonary function will worsen before it improves Hemodynamically stable CTA of the neck vessels and CT repeat CT of the head was reviewed, not significantly changed. No vascular injuries seen tolerating his tube feeds Continue aggressive pulmonary toilette, nasotracheal suction, and breathing treatments with nebulizers. Daily PT and OT Renal. Continue to monitor closely urine output, BUN and creatinine Endocrine. Continue to Monitor serial Acu checks and SSI as needed in detail ID continue to monitor for signs of infection Continue Protonix for stress ulcer prophylaxis Continue Ra howie and SCD's for DVT prophylaxis I have discussed it with family in detail again
[2018-06-09] MEDS: Propofol 1000 mg/100 ml Inj 1,000 MG/100 ML BOTTLE IV.CONT PRN (17:39)
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
[2018-06-10] MEDS: Propofol 1000 mg/100 ml Inj 1,000 MG/100 ML BOTTLE IV.CONT PRN ×4 (01:46→18:19)
[2018-06-10] MEDS: Oral Hygiene Kit OROPHARYNG SCH ×3 (04:24→17:36)
[2018-06-10 04:46] LABS: Baso % (Auto) 0.6 % (0.0-2.0); Eos # (Auto) 0.2 th/mm3 (0.0-0.4); Eos % (Auto) 3.4 % (0.0-4.0); Hematocrit 24.7 % (39.0-51.0); Hemoglobin 8.4 gm/dL (13.0-17.0); Lymph % (Auto) 16.9 % (9.0-44.0); Mean Corpuscular HGB Conc 33.9 % (32.0-36.0); Mean Corpuscular Hemoglobin 34.2 pg (27.0-34.0); Mean Corpuscular Volume 100.9 fL (80.0-100.0); Mean Platelet Volume 7.6 fL (7.0-11.0); Mono % (Auto) 16.3 % (0.0-8.0); Neut # (Auto) 3.9 th/mm3 (1.8-7.7); Neut % (Auto) 62.8 % (16.0-70.0); Platelet Count 256 th/mm3 (150-450); Red Blood Count 2.44 mil/mm3 (4.50-5.90); Red Cell Distribution Width 13.6 % (11.6-17.2); White Blood Count 6.2 th/mm3 (4.0-11.0)
[2018-06-10] MEDS: Piperacil/Tazo 4.5 GM Premix 4.5 GM/100 ML BAG IV.SIG SCH ×4 (04:54→23:08)
[2018-06-10 05:12] LABS: Alanine Aminotransferase 49 U/L (12-78); Anion Gap 7 meq/L (5-15); Aspartate Aminotransferase 42 U/L (15-37); Blood Urea Nitrogen 14 mg/dL (7-18); Calcium 8.1 mg/dL (8.5-10.1); Chloride 119 meq/L (98-107); Glomerular Filtration Rate 46 mL/min (>89); Glucose,Random 111 mg/dL (74-106); Potassium 3.3 meq/L (3.5-5.1); Sodium 152 meq/L (136-145)
[2018-06-10 05:15] LABS: Alkaline Phosphatase 139 U/L (45-117); Total Protein 5.4 g/dL (6.4-8.2)
[2018-06-10 05:35] LABS: ABG Base Excess 1.9 mmol/L (-2-2); ABG PCO2 40 mmHg (38-42); ABG PO2 55 mmHg (61-120)
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
[2018-06-10] MEDS: Heparin - SQ 10,000 UNITS/ML Vial SQ SCH ×3 (06:24→21:55)
[2018-06-10] MEDS: Chlorhexidine 0.12% Oral Kit 15 ML UDC OROPHARYNG SCH ×2 (08:07→20:00)
[2018-06-10] MEDS: Povidone Iodine 10% Top Soln 118 ML Bottle TOPICAL SCH (08:07)
[2018-06-10] MEDS: Senna/Docusate Sodium 8.6/50 MG Tablet PO SCH ×2 (08:07→21:56)
[2018-06-10] MEDS: Potassium Chloride 25 MEQ Effervescent Tablet PO PRN (08:43)
[2018-06-10] MEDS: Pantoprazole Inj 40 MG Vial IV.PUSH SCH (08:43)
[2018-06-10] MEDS: fentaNYL 10 mcg/mL Premix Drip 2,500 MCG/250 ML BAG IV.SIG PRN (11:29)
[2018-06-10 12:16] LABS: ABG Base Excess 1.3 mmol/L (-2-2); ABG PCO2 41 mmHg (38-42); ABG PO2 163 mmHg (61-120)
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
[2018-06-11] MEDS: Oral Hygiene Kit OROPHARYNG SCH ×4 (00:28→16:27)
[2018-06-11 04:01] LABS: Baso # (Auto) 0.1 th/mm3 (0.0-0.2); Eos # (Auto) 0.3 th/mm3 (0.0-0.4); Eos % (Auto) 4.6 % (0.0-4.0); Hematocrit 24.4 % (39.0-51.0); Hemoglobin 8.3 gm/dL (13.0-17.0); Lymph # (Auto) 1.2 th/mm3 (1.0-4.8); Lymph % (Auto) 20.1 % (9.0-44.0); Mean Corpuscular HGB Conc 33.8 % (32.0-36.0); Mean Corpuscular Hemoglobin 34.3 pg (27.0-34.0); Mean Corpuscular Volume 101.5 fL (80.0-100.0); Mean Platelet Volume 7.1 fL (7.0-11.0); Mono % (Auto) 16.8 % (0.0-8.0); Neut # (Auto) 3.6 th/mm3 (1.8-7.7); Neut % (Auto) 57.5 % (16.0-70.0); Platelet Count 314 th/mm3 (150-450); Red Blood Count 2.41 mil/mm3 (4.50-5.90); Red Cell Distribution Width 13.8 % (11.6-17.2); White Blood Count 6.2 th/mm3 (4.0-11.0)
[2018-06-11 04:25] LABS: Alanine Aminotransferase 42 U/L (12-78); Anion Gap 7 meq/L (5-15); Aspartate Aminotransferase 24 U/L (15-37); Blood Urea Nitrogen 17 mg/dL (7-18); Calcium 8.2 mg/dL (8.5-10.1); Carbon Dioxide 26.7 meq/L (21.0-32.0); Chloride 117 meq/L (98-107); Glomerular Filtration Rate 41 mL/min (>89); Glucose,Random 105 mg/dL (74-106); Potassium 3.7 meq/L (3.5-5.1); Sodium 151 meq/L (136-145)
[2018-06-11 04:28] LABS: Alkaline Phosphatase 138 U/L (45-117); Total Protein 5.8 g/dL (6.4-8.2); Vancomycin,Random 16.3 Comment
[2018-06-11] MEDS: Piperacil/Tazo 4.5 GM Premix 4.5 GM/100 ML BAG IV.SIG SCH ×2 (04:33→10:08)
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
[2018-06-11] MEDS: Propofol 1000 mg/100 ml Inj 1,000 MG/100 ML BOTTLE IV.CONT PRN ×4 (05:05→22:45)
[2018-06-11 05:59] LABS: ABG Base Excess 1.9 mmol/L (-2-2); ABG PCO2 45 mmHg (38-42); ABG PO2 132 mmHg (61-120)
[2018-06-11] MEDS: Heparin - SQ 10,000 UNITS/ML Vial SQ SCH ×3 (05:59→21:22)
[2018-06-11] MEDS: fentaNYL 10 mcg/mL Premix Drip 2,500 MCG/250 ML BAG IV.SIG PRN ×2 (06:29→21:24)
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
[2018-06-11] MEDS: Chlorhexidine 0.12% Oral Kit 15 ML UDC OROPHARYNG SCH ×2 (10:00→21:06)
[2018-06-11] MEDS: Povidone Iodine 10% Top Soln 118 ML Bottle TOPICAL SCH (10:01)
[2018-06-11] MEDS: Sodium Chloride 0.45 % Inj 1,000 ML IV.CONT SCH (10:06)
[2018-06-11] MEDS: Pantoprazole Inj 40 MG Vial IV.PUSH SCH (10:06)
[2018-06-11] MEDS: Senna/Docusate Sodium 8.6/50 MG Tablet PO SCH ×2 (10:06→21:22)
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
[2018-06-11 13:57] LABS: Bacteria,Urine Occasional /hpf; Bilirubin,Urine Negative (Negative); Clarity,Urine Clear (Clear); Color,Urine Yellow (Yellw/Straw); Glucose,Urine (UA) Negative (Negative); Leukocyte Esterase,Urine Negative (Negative); Mucus,Urine Few /lpf (Occasional); Nitrite,Urine Negative (Negative); Specific Gravity,Urine 1.016 (1.002-1.035)
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
[2018-06-12] MEDS: Oral Hygiene Kit OROPHARYNG SCH ×4 (01:19→16:46)
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
[2018-06-12] MEDS: Sodium Chloride 0.45 % Inj 1,000 ML IV.CONT SCH ×2 (03:53→18:15)
[2018-06-12 04:17] LABS: Baso # (Auto) 0.1 th/mm3 (0.0-0.2); Baso % (Auto) 0.8 % (0.0-2.0); Eos # (Auto) 0.4 th/mm3 (0.0-0.4); Eos % (Auto) 4.4 % (0.0-4.0); Hemoglobin 8.8 gm/dL (13.0-17.0); Lymph # (Auto) 1.3 th/mm3 (1.0-4.8); Lymph % (Auto) 13.6 % (9.0-44.0); Mean Corpuscular HGB Conc 33.8 % (32.0-36.0); Mean Corpuscular Hemoglobin 33.9 pg (27.0-34.0); Mean Corpuscular Volume 100.3 fL (80.0-100.0); Mean Platelet Volume 7.1 fL (7.0-11.0); Mono # (Auto) 1.3 th/mm3 (0.0-0.9); Mono % (Auto) 13.5 % (0.0-8.0); Neut # (Auto) 6.4 th/mm3 (1.8-7.7); Neut % (Auto) 67.7 % (16.0-70.0); Platelet Count 362 th/mm3 (150-450); Red Blood Count 2.59 mil/mm3 (4.50-5.90); Red Cell Distribution Width 13.6 % (11.6-17.2); White Blood Count 9.4 th/mm3 (4.0-11.0)
[2018-06-12 04:52] LABS: Alanine Aminotransferase 35 U/L (12-78); Albumin 1.9 g/dL (3.4-5.0); Alkaline Phosphatase 146 U/L (45-117); Anion Gap 9 meq/L (5-15); Aspartate Aminotransferase 17 U/L (15-37); Blood Urea Nitrogen 20 mg/dL (7-18); Carbon Dioxide 24.8 meq/L (21.0-32.0); Chloride 115 meq/L (98-107); Glomerular Filtration Rate 41 mL/min (>89); Glucose,Random 149 mg/dL (74-106); Sodium 149 meq/L (136-145); Total Protein 6.1 g/dL (6.4-8.2)
[2018-06-12 06:02] LABS: ABG Base Excess 2.1 mmol/L (-2-2); ABG PCO2 47 mmHg (38-42); ABG PO2 124 mmHg (61-120)
[2018-06-12] MEDS: Heparin - SQ 10,000 UNITS/ML Vial SQ SCH ×3 (06:32→21:11)
[2018-06-12] MEDS: Propofol 1000 mg/100 ml Inj 1,000 MG/100 ML BOTTLE IV.CONT PRN ×2 (06:33→11:29)
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
[2018-06-12] MEDS: Chlorhexidine 0.12% Oral Kit 15 ML UDC OROPHARYNG SCH ×2 (08:14→21:03)
[2018-06-12] MEDS: Povidone Iodine 10% Top Soln 118 ML Bottle TOPICAL SCH (08:14)
[2018-06-12] MEDS: Pantoprazole Inj 40 MG Vial IV.PUSH SCH (08:15)
[2018-06-12] MEDS: Senna/Docusate Sodium 8.6/50 MG Tablet PO SCH ×2 (08:15→21:12)
[2018-06-12] MEDS: Sod Chloride 0.9% Inj 1,000 ML IV.SIG SCH (09:15)
[2018-06-12] MEDS: Sod Chloride 0.9% Inj 1,000 ML IV.CONT SCH (09:15)
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
[2018-06-12 11:01] LABS: Creatinine,Urine Random 62 mg/dL (27-300)
[2018-06-12] MEDS: fentaNYL 10 mcg/mL Premix Drip 2,500 MCG/250 ML BAG IV.SIG PRN (14:10)
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
[2018-06-13] MEDS: Oral Hygiene Kit OROPHARYNG SCH ×4 (01:09→21:21)
[2018-06-13] MEDS: Propofol 1000 mg/100 ml Inj 1,000 MG/100 ML BOTTLE IV.CONT PRN ×3 (04:03→21:13)
[2018-06-13 05:31] LABS: Baso # (Auto) 0.1 th/mm3 (0.0-0.2); Baso % (Auto) 0.8 % (0.0-2.0); Eos # (Auto) 0.3 th/mm3 (0.0-0.4); Eos % (Auto) 3.8 % (0.0-4.0); Hematocrit 26.4 % (39.0-51.0); Hemoglobin 8.9 gm/dL (13.0-17.0); Lymph # (Auto) 1.4 th/mm3 (1.0-4.8); Lymph % (Auto) 15.7 % (9.0-44.0); Mean Corpuscular HGB Conc 33.6 % (32.0-36.0); Mean Corpuscular Hemoglobin 33.9 pg (27.0-34.0); Mean Platelet Volume 7.4 fL (7.0-11.0); Mono # (Auto) 1.3 th/mm3 (0.0-0.9); Neut % (Auto) 65.7 % (16.0-70.0); Platelet Count 428 th/mm3 (150-450); Red Blood Count 2.62 mil/mm3 (4.50-5.90); Red Cell Distribution Width 13.8 % (11.6-17.2); White Blood Count 9.2 th/mm3 (4.0-11.0)
[2018-06-13 05:38] LABS: ABG Base Excess 2.2 mmol/L (-2-2); ABG PCO2 47 mmHg (38-42); ABG PO2 100 mmHg (61-120)
[2018-06-13 05:45] LABS: Anion Gap 7 meq/L (5-15); Aspartate Aminotransferase 22 U/L (15-37); Blood Urea Nitrogen 21 mg/dL (7-18); Calcium 8.6 mg/dL (8.5-10.1); Carbon Dioxide 27.9 meq/L (21.0-32.0); Chloride 115 meq/L (98-107); Glomerular Filtration Rate 39 mL/min (>89); Glucose,Random 118 mg/dL (74-106); Potassium 4.1 meq/L (3.5-5.1); Sodium 150 meq/L (136-145)
[2018-06-13 05:48] LABS: Alanine Aminotransferase 30 U/L (12-78); Alkaline Phosphatase 151 U/L (45-117); Total Protein 6.2 g/dL (6.4-8.2)
--- NOTE | 2018-06-13 05:48 | XR ---
EXAM DATE: 06/13/2018 5:16 AM EDT AGE/SEX: 57 years / Male INDICATIONS: . Shortness of breath. CLINICAL DATA: This is the patient's subsequent encounter. Patient reports that signs and symptoms h ave been present for 2 weeks and indicates a pain score of Nonresponsive. MEDICAL/SURGICAL HISTORY: Non-responsive. Non-responsive. COMPARISON: [facility], CHEST 1V SINGLE AP, 06/12/2018. . FINDINGS: Endotracheal tube in good position. NG enters stomach. Right central line in superior vena cava. Bila teral mostly basilar airspace disease similar to June 12. CONCLUSION: Stable mild basilar airspace disease. Support apparatus unchanged. No pneumothorax. Electronically signed by: Marcello Pinon MD 06/13/2018 5:47 AM EDT
[2018-06-13] MEDS: Heparin - SQ 10,000 UNITS/ML Vial SQ SCH ×3 (06:12→21:14)
[2018-06-13] MEDS: fentaNYL 10 mcg/mL Premix Drip 2,500 MCG/250 ML BAG IV.SIG PRN ×2 (06:13→21:11)
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
[2018-06-13] MEDS: Pantoprazole Inj 40 MG Vial IV.PUSH SCH (09:32)
[2018-06-13] MEDS: Chlorhexidine 0.12% Oral Kit 15 ML UDC OROPHARYNG SCH ×2 (09:33→21:20)
[2018-06-13] MEDS: Senna/Docusate Sodium 8.6/50 MG Tablet PO SCH ×3 (09:37→23:31)
[2018-06-13 09:39] LABS: Lymphocytes 14 % (9-44); Metamyelocytes 3 % (0-1); Monocytes 10 % (0-8); Myelocytes 1 % (0-0); RBC Morphology Normal (Normal); Toxic Granulation 2+
[2018-06-13 09:40] LABS: Platelet Estimate Normal (Normal); Platelet Morphology Normal (Normal)
[2018-06-13] MEDS ORDERED: Midazolam Inj 5 MG/ML 1 ML Vial IV.SIG ONE (10:45)
[2018-06-13] MEDS ORDERED: fentaNYL Citrate Inj 250 MCG/5 ML Ampul IV.SIG ONE (10:45)
[2018-06-13] MEDS: Dextrose 5% in Water Inj 1,000 ML IV.CONT SCH (13:06)
[2018-06-13] MEDS: Chlorothiazide Inj 500 MG Vial IV.PUSH SCH ×2 (13:11→21:14)
--- NOTE | 2018-06-13 13:27 | P.PCN ---
Date of procedure: 06/13/18 Pre-op diagnosis: Resp failure Post-op diagnosis: same Procedure: Diagnosis: Acute Hypoxemic respiratory failure Procedure: Fiberoptic bronchoscopy for percutaneous tracheostomy Operation: Timeout performed and patient appropriately identified. The patient is presently intubated in the orotracheal route in the usual ICU monitoring devices are in place. The patient is on mechanical ventilation APRV mode. Patient was administered initially 5 mg of Versed IV, 100 mcg fentanyl IV , and rocuronium 50 mg IV. The flexible fiberoptic bronchoscope was delivered through a side-port in the ventilatory circuit and delivered into the tracheobronchial tree, anatomy was normal. The mucosa was not inflamed. The bronchoscope was then withdrawn to the level of the tip of the endotracheal tube and then both devices were retracted to the level of the cricoid cartilage. This was used for visualization of the percutaneous tracheostomy performed by separate team. Following insertion of the tracheostomy tube the flexible bronchoscope was delivered down the new tracheostomy tube and confirmed the presence of the new tube in the mid trachea safely above the ruth. Ventilation was restored through the new tracheostomy tube and ETCO2 exhalation was confirmed. Full tidal volumes were returned and oxygen saturation was maintained at greater than 98% throughout the procedure. Surgeon: Mena Bautista Estimated blood loss (mL): 0 Pathology: none sent Condition: critical Disposition: ICU
--- NOTE | 2018-06-13 13:36 | P.PNNS ---
Subjective Interval history: 06/13: remains sedated, intubated. Mild eye opening seen. <Josephine Pena - Last Filed: 06/13/18 13:35> Physical Exam Vital signs: Vital Signs 06/12/18 14:00 06/12/18 16:00 06/12/18 16:24 Temperature 98.2 F Pulse Rate 84 77 Respiratory Rate 15 14 Blood Pressure 160/80 H Pulse Oximetry 97 99 06/12/18 17:41 06/12/18 20:00 06/12/18 20:17 Temperature 98.6 F Pulse Rate 65 66 Respiratory Rate 19 20 Blood Pressure 144/80 H Pulse Oximetry 100 06/12/18 22:00 06/12/18 23:48 06/13/18 00:00 Temperature 98.8 F Pulse Rate 65 78 Respiratory Rate 17 17 Blood Pressure 162/83 H Pulse Oximetry 06/13/18 01:03 06/13/18 02:00 06/13/18 04:00 Temperature 98.6 F Pulse Rate 70 70 Respiratory Rate 21 10 L Blood Pressure 140/76 Pulse Oximetry 100 06/13/18 04:25 06/13/18 06:00 06/13/18 08:52 Temperature Pulse Rate 73 Respiratory Rate 12 16 Blood Pressure Pulse Oximetry 99 95 06/13/18 10:45 06/13/18 12:56 Temperature Pulse Rate Respiratory Rate 15 Blood Pressure Pulse Oximetry 98 100 Intake & Output 06/12/18 06/13/18 06/13/18 18:59 06:59 18:59 Intake Total 2199 / 2199 1597 / 1597 100 / 100 Output Total 1250 / 1250 1575 / 1575 Balance 949 / 949 22 / 22 100 / 100 Intake: IV 1090 / 1090 270 / 270 100 / 100 Diprivan 1000 mg/100 ml Inj 1, 100 / 100 100 / 100 100 / 100 000 mg In 100 ml @ 5 MCG/KG/MIN 1.713 mls/hr IV.CONT TITRATE PRN Rx#:[id number] 1/2 Normal Saline Inj 1,000 ML 820 / 820 @ 60 mls/hr IV.CONT .[id number] [facility] Rx#:[id number] Maxipime Inj 1,000 MG In NS Inj 100 / 100 100 / 100 100 ML @ 200 mls/hr IV.SIG Q12H [facility] Rx#:[id number] fentaNYL 10 mcg/mL Premix Drip 70 / 70 70 / 70 2,500 mcg In 250 ml @ 50 MCG/HR 5 mls/hr IV.SIG TITRATE PRN Rx #:[id number] Tube Feeding 509 / 509 607 / 607 Tube Irrigant 120 / 120 Water Bolus Amount 600 / 600 600 / 600 Output: Urine Amount (Catheter) 1250 / 1250 1575 / 1575 Indwelling Temp Sensing 1250 / 1250 1575 / 1575 Catheter Gastric Drainage 0 / 0 Orogastric Tube 0 / 0 Other: Date of Last Bowel Movement 06/12/18 06/13/18 # Bowel Movements 2 # Incontinent Bowel Movements 2 - Urinary Catheter Management Indwelling Temp Sensing Catheter Cath placed during this visit: yes Reason for continuing: Hourly intake/output Insertion date: 06/02/18 Insertion time: 17:55 <Josephine Pena - Last Filed: 06/13/18 13:35> Vital signs: Vital Signs 06/12/18 20:17 06/12/18 22:00 06/12/18 23:48 Temperature Pulse Rate 65 Respiratory Rate 20 17 Blood Pressure Pulse Oximetry 100 06/13/18 00:00 06/13/18 01:03 06/13/18 02:00 Temperature 98.8 F Pulse Rate 78 70 Respiratory Rate 17 21 Blood Pressure 162/83 H Pulse Oximetry 100 06/13/18 04:00 06/13/18 04:25 06/13/18 06:00 Temperature 98.6 F Pulse Rate 70 73 Respiratory Rate 10 L 12 Blood Pressure 140/76 Pulse Oximetry 99 06/13/18 08:00 06/13/18 08:52 06/13/18 10:00 Temperature 99.7 F H Pulse Rate 68 67 Respiratory Rate 13 16 Blood Pressure 122/70 Pulse Oximetry 98 95 06/13/18 10:45 06/13/18 12:00 06/13/18 12:56 Temperature 99 F Pulse Rate 73 Respiratory Rate 15 16 Blood Pressure 134/76 Pulse Oximetry 98 100 100 06/13/18 14:00 06/13/18 15:38 06/13/18 16:00 Temperature 99.7 F H Pulse Rate 73 77 Respiratory Rate 19 18 Blood Pressure 154/90 H Pulse Oximetry 100 06/13/18 18:00 06/13/18 19:31 Temperature Pulse Rate 72 Respiratory Rate 10 L Blood Pressure Pulse Oximetry 100 Intake & Output 06/13/18 06/13/18 06/14/18 06:59 18:59 06:59 Intake Total 1597 / 1597 810 / 810 Output Total 1575 / 1575 4000 / 4000 Balance 22 / 22 -3190 / -3190 Intake: IV 270 / 270 100 / 100 Diprivan 1000 mg/100 ml Inj 1, 100 / 100 100 / 100 000 mg In 100 ml @ 5 MCG/KG/MIN 1.713 mls/hr IV.CONT TITRATE PRN Rx#:[id number] Maxipime Inj 1,000 MG In NS Inj 100 / 100 100 ML @ 200 mls/hr IV.SIG Q12H [facility] Rx#:[id number] fentaNYL 10 mcg/mL Premix Drip 70 / 70 2,500 mcg In 250 ml @ 50 MCG/HR 5 mls/hr IV.SIG TITRATE PRN Rx #:[id number] Tube Feeding 607 / 607 350 / 350 Tube Irrigant 120 / 120 60 / 60 Water Bolus Amount 600 / 600 300 / 300 Output: Urine Amount (Catheter) 1575 / 1575 4000 / 4000 Indwelling Temp Sensing 1575 / 1575 4000 / 4000 Catheter Gastric Drainage 0 / 0 Orogastric Tube 0 / 0 Other: Date of Last Bowel Movement 06/13/18 06/13/18 # Bowel Movements 3 # Incontinent Bowel Movements 2 Narrative: The patient is intubated and sedated. Localizes to painful stimuli with all 4 extremities. Cranial Nerves: Pupils equal, 3 mm round, reactive to light. Eyes appear conjugated. There was no nystagmus, no papilledema. Face musculature appeared symmetrical at rest. Face sensation, olfaction, and hearing cannot be adequately assessed due to the patient's neurological condition. The patient has a corneal reflex. The patient has a gag reflex. The sternocleidomastoid and trapezius were symmetrical. Cervical Spine: The patient's neck is soft, supple, without nuchal rigidity. Motor: His muscle tone and bulk are normal. He moves purposefully all 4 extremities symmetrically. Reflexes: Deep tendon reflexes are 2+ and symmetrical in the biceps, triceps, and brachioradialis, bilaterally, in the upper extremities. In the lower extremities, the patellar and ankles are 2+, bilaterally. There is a bilateral plantar flexion response. There is no clonus or other abnormal reflexes noted. Sensory: On examination there there is response to painful stimuli, localizing with both upper and lower extremities. Cerebellar: Examination cannot be adequately assessed due to the patient's neurological condition. Lungs: clear Heart: Regular rhythm and rate Skin: warm and dry - Urinary Catheter Management Indwelling Temp Sensing Catheter Cath placed during this visit: no <Jerrell Mas - Last Filed: 06/13/18 20:11> Assessment and Plan - Assessment (1) CHI (closed head injury) Code(s): S09.90XA - Unspecified injury of head, initial encounter Status: Acute Qualifiers: Encounter type: initial encounter Qualified Code(s): S09.90XA - Unspecified injury of head, initial encounter - Plan (1) CHI (closed head injury) Code(s): S09.90XA - Unspecified injury of head, initial encounter Status: Acute Qualifiers: Encounter type: initial encounter Qualified Code(s): S09.90XA - Unspecified injury of head, initial encounter Head CT 06/04/18 10:39 CONCLUSION: 1. 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 2. No focal or acute intracranial hemorrhage is seen at this time. 3. Stable multiple left-sided facial fractures. Neck CTA 06/04/18 10:39 CONCLUSION: 1. Unremarkable CTA examination of the neck. 2. Specifically, no evidence for dissection or significant flow-limiting stenosis. - Plan cont neuro checks sedation weaning critical care mgt per trauma team <Josephine Pena - Last Filed: 06/13/18 13:35> - Assessment (1) CHI (closed head injury) Code(s): S09.90XA - Unspecified injury of head, initial encounter Status: Acute Qualifiers: Encounter type: initial encounter Qualified Code(s): S09.90XA - Unspecified injury of head, initial encounter - Plan (1) CHI (closed head injury) Code(s): S09.90XA - Unspecified injury of head, initial encounter Status: Acute Neuro: neuro checks, Nonoperative treatment. Pulmonary: aggressive pulmonary toilette, nasotracheal suction, and breathing treatments with nebulizers. Daily PT and OT Renal: Continue to monitor closely urine output, BUN and creatinine Endocrine: Continue to Monitor serial Acu checks and SSI as needed in detail ID continue to monitor for signs of infection Continue Protonix for stress ulcer prophylaxis Continue Ra hose and SCD's for DVT prophylaxis Further recommendations will be provided depending on the patient's clinical evaluation and follow up studies. The exam, history, and the medical decision-making described in the above note were completed with the assistance of the mid-level provider. I reviewed and agree with the findings presented. I attest that I had a [id number] encounter with the patient on the same day, and personally performed and documented my assessment and findings in the medical record. <Jerrell Mas - Last Filed: 06/13/18 20:11>
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
--- NOTE | 2018-06-13 17:44 | MP ---
cc: Jacinda Duran MD DATE OF OPERATION: 06/13/2018 DATE OF SURGERY: 06/13/2018 PREOPERATIVE DIAGNOSIS: Traumatic brain injury with respiratory failure. POSTOPERATIVE DIAGNOSIS: Traumatic brain injury with respiratory failure. OPERATIVE PROCEDURE PERFORMED: Blue Rhino tracheostomy and bronchoscopy. SURGEON: Jacinda Duran MD BRONCHOSCOPIST: Mena Bautista MD ANESTHESIA: General. ESTIMATED BLOOD LOSS: 10 mL. DESCRIPTION OF PROCEDURE: The patient was prepped and draped in the usual fashion and then the area infiltrated with 1% Xylocaine. Vertical incision made in the lower neck just above the sternal notch, deepened down to the trachea by blunt dissection with a hemostat. Once the trachea was reached, an Angiocath was inserted between the second and third tracheal rings and then guidewire placed through the Angiocath. This is checked with bronchoscopy while the endotracheal tube was withdrawn upward. Over the guidewire, the punch dilator was placed, followed by the Blue Rhino dilator and an 8 Shiley tracheostomy cannula. This was then sutured in place with 2-0 nylon, connected to the ventilator, end-tidal CO2 checked and bronchoscopy repeated. The patient tolerated the procedure well. MD WILMAN Gould/KD , 05:26 PM , 05:42 PM
[2018-06-13] MEDS: Povidone Iodine 10% Top Soln 118 ML Bottle TOPICAL SCH (17:47)
--- NOTE | 2018-06-13 23:11 | US ---
EXAM DATE: 06/13/2018 9:52 PM EDT AGE/SEX: 57 years / Male INDICATIONS: Acute kidney injury. CLINICAL DATA: This is the patient's initial encounter. Patient reports that signs and symptoms have been present for 1 day and indicates a pain score of Nonresponsive. MEDICAL/SURGICAL HISTORY: . Acute kidney injury. None. [place] [facility] [place]. . MEASUREMENTS: Right Kidney:__13.3 x 6.6 x 6.3 cm Left Kidney:__13.8 x 5.6 x 7.0 cm FINDINGS: Right Kidney: Increased echotexture. No mass or hydronephrosis. No perinephric fluid collections. Left Kidney: Increased echotexture. No mass or hydronephrosis. No perinephric fluid collections. Bladder: Wolf catheter is present. Bladder decompressed. Other: None. CONCLUSION: 1. Negative renal sonogram. Electronically signed by: Jose Lujan MD 06/13/2018 11:09 PM EDT
[2018-06-14] MEDS: Oral Hygiene Kit OROPHARYNG SCH ×4 (02:16→16:35)
[2018-06-14] MEDS: Propofol 1000 mg/100 ml Inj 1,000 MG/100 ML BOTTLE IV.CONT PRN ×3 (03:30→19:23)
[2018-06-14 03:48] LABS: Baso # (Auto) 0.1 th/mm3 (0.0-0.2); Baso % (Auto) 0.9 % (0.0-2.0); Eos # (Auto) 0.3 th/mm3 (0.0-0.4); Eos % (Auto) 2.9 % (0.0-4.0); Hematocrit 26.9 % (39.0-51.0); Hemoglobin 8.9 gm/dL (13.0-17.0); Lymph # (Auto) 1.3 th/mm3 (1.0-4.8); Lymph % (Auto) 14.2 % (9.0-44.0); Mean Corpuscular HGB Conc 33.1 % (32.0-36.0); Mean Corpuscular Hemoglobin 33.1 pg (27.0-34.0); Mean Corpuscular Volume 100.1 fL (80.0-100.0); Mean Platelet Volume 7.2 fL (7.0-11.0); Mono # (Auto) 1.2 th/mm3 (0.0-0.9); Mono % (Auto) 13.2 % (0.0-8.0); Neut # (Auto) 6.3 th/mm3 (1.8-7.7); Neut % (Auto) 68.8 % (16.0-70.0); Platelet Count 499 th/mm3 (150-450); Red Blood Count 2.69 mil/mm3 (4.50-5.90); Red Cell Distribution Width 13.9 % (11.6-17.2); White Blood Count 9.2 th/mm3 (4.0-11.0)
[2018-06-14 04:25] LABS: Alanine Aminotransferase 27 U/L (12-78); Albumin 2.1 g/dL (3.4-5.0); Alkaline Phosphatase 158 U/L (45-117); Anion Gap 8 meq/L (5-15); Aspartate Aminotransferase 17 U/L (15-37); Blood Urea Nitrogen 26 mg/dL (7-18); Calcium 9.4 mg/dL (8.5-10.1); Carbon Dioxide 29.8 meq/L (21.0-32.0); Chloride 111 meq/L (98-107); Glomerular Filtration Rate 35 mL/min (>89); Glucose,Random 100 mg/dL (74-106); Potassium 4.1 meq/L (3.5-5.1); Sodium 149 meq/L (136-145); Total Protein 6.6 g/dL (6.4-8.2)
[2018-06-14 05:10] LABS: Platelet Morphology Normal (Normal); Stomatocytes 1+
[2018-06-14 05:44] LABS: ABG Base Excess 4.2 mmol/L (-2-2); ABG PCO2 45 mmHg (38-42); ABG PO2 111 mmHg (61-120)
[2018-06-14] MEDS: Heparin - SQ 10,000 UNITS/ML Vial SQ SCH ×3 (06:39→21:13)
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
[2018-06-14] MEDS: Chlorhexidine 0.12% Oral Kit 15 ML UDC OROPHARYNG SCH ×2 (08:29→20:44)
[2018-06-14] MEDS: Povidone Iodine 10% Top Soln 118 ML Bottle TOPICAL SCH (08:29)
[2018-06-14] MEDS: Senna/Docusate Sodium 8.6/50 MG Tablet PO SCH ×2 (08:30→20:44)
[2018-06-14] MEDS: Chlorothiazide Inj 500 MG Vial IV.PUSH SCH ×2 (08:34→21:12)
[2018-06-14] MEDS: Pantoprazole Inj 40 MG Vial IV.PUSH SCH (08:35)
[2018-06-14] MEDS: Dextrose 5% in Water Inj 1,000 ML IV.CONT SCH (10:11)
[2018-06-14 10:34] LABS: ABG Base Excess 6.1 mmol/L (-2-2); ABG PCO2 43 mmHg (38-42); ABG PO2 99 mmHg (61-120)
[2018-06-14] MEDS ORDERED: SODIUM CHLOR 0.9% IV.SIG SCH (13:00)
[2018-06-14] MEDS ORDERED: VALPROATE IV.SIG SCH (13:00)
--- NOTE | 2018-06-14 13:35 | P.PNNS ---
Subjective Interval history: 06/14: reports to opening eyes, and moving extremities <Josephine Pena - Last Filed: 06/14/18 16:16> Physical Exam Vital signs: Vital Signs 06/13/18 14:00 06/13/18 15:38 06/13/18 16:00 Temperature 99.7 F H Pulse Rate 73 77 Respiratory Rate 19 18 Blood Pressure 154/90 H Pulse Oximetry 100 06/13/18 18:00 06/13/18 19:31 06/13/18 20:00 Temperature 99.1 F Pulse Rate 72 68 Respiratory Rate 10 L 10 L Blood Pressure 138/78 Pulse Oximetry 100 100 06/13/18 22:00 06/13/18 23:29 06/14/18 00:00 Temperature 99.4 F Pulse Rate 84 68 Respiratory Rate 18 10 L Blood Pressure 136/78 Pulse Oximetry 98 06/14/18 01:02 06/14/18 02:00 06/14/18 04:00 Temperature 99.6 F Pulse Rate 70 76 Respiratory Rate 15 10 L Blood Pressure 138/80 Pulse Oximetry 97 100 06/14/18 04:16 06/14/18 06:00 06/14/18 08:00 Temperature 99 F Pulse Rate 64 68 Respiratory Rate 11 L 10 L Blood Pressure 118/70 Pulse Oximetry 100 100 06/14/18 10:00 06/14/18 12:00 Temperature 98.8 F Pulse Rate 80 74 Respiratory Rate 11 L Blood Pressure 118/65 Pulse Oximetry 99 Intake & Output 06/13/18 06/14/18 06/14/18 18:59 06:59 18:59 Intake Total 910 / 910 450 / 450 1200 / 1200 Output Total 4000 / 4000 4150 / 4150 Balance -3090 / -3090 -3700 / -3700 1200 / 1200 Weight 96.8 kg Intake: IV 200 / 200 450 / 450 1200 / 1200 D5W Inj 1,000 ML @ 50 mls/hr IV 1000 / 1000 .CONT .Q20H AURELIO Rx#:[id number] Diprivan 1000 mg/100 ml Inj 1, 100 / 100 200 / 200 100 / 100 000 mg In 100 ml @ 5 MCG/KG/MIN 1.713 mls/hr IV.CONT TITRATE PRN Rx#:[id number] Maxipime Inj 1,000 MG In NS Inj 100 / 100 100 / 100 100 ML @ 200 mls/hr IV.SIG Q12H AURELIO Rx#:[id number] fentaNYL 10 mcg/mL Premix Drip 250 / 250 2,500 mcg In 250 ml @ 50 MCG/HR 5 mls/hr IV.SIG TITRATE PRN Rx #:[id number] Tube Feeding 350 / 350 Tube Irrigant 60 / 60 Water Bolus Amount 300 / 300 Output: Urine 4150 / 4150 Urine Amount (Catheter) 4000 / 4000 Indwelling Temp Sensing 4000 / 4000 Catheter Other: Date of Last Bowel Movement 06/13/18 06/13/18 06/14/18 # Bowel Movements 3 1 Narrative: minimal eye opening localizes to noxious stimulation pupils equal - Urinary Catheter Management Indwelling Temp Sensing Catheter Cath placed during this visit: yes Reason for continuing: Hourly intake/output Insertion date: 06/02/18 Insertion time: 17:55 <Josephine Pena - Last Filed: 06/14/18 16:16> Vital signs: Vital Signs 06/15/18 18:00 06/15/18 19:15 06/15/18 20:00 Temperature 98.8 F Pulse Rate 60 56 L Respiratory Rate 12 12 Blood Pressure 114/71 Pulse Oximetry 99 06/15/18 22:00 06/16/18 00:00 06/16/18 00:02 Temperature 98.5 F Pulse Rate 66 59 L Respiratory Rate 12 12 Blood Pressure 113/71 Pulse Oximetry 100 100 06/16/18 02:00 06/16/18 03:22 06/16/18 04:00 Temperature 99 F Pulse Rate 65 63 Respiratory Rate 12 12 Blood Pressure 117/74 Pulse Oximetry 100 100 06/16/18 06:00 06/16/18 08:00 06/16/18 08:49 Temperature 98.6 F Pulse Rate 63 62 Respiratory Rate 12 12 Blood Pressure 112/68 Pulse Oximetry 98 99 06/16/18 10:00 06/16/18 11:36 06/16/18 12:00 Temperature 98.6 F Pulse Rate 76 84 Respiratory Rate 12 20 Blood Pressure 125/77 Pulse Oximetry 99 99 06/16/18 14:00 06/16/18 15:32 Temperature Pulse Rate 82 Respiratory Rate 12 Blood Pressure Pulse Oximetry 95 Intake & Output 06/15/18 06/16/18 06/16/18 18:59 06:59 18:59 Intake Total 2107.5 / 2107.5 700 / 700 1100 / 1100 Output Total 4150 / 4150 2200 / 2200 Balance -2042.5 / -2042.5 -1500 / -1500 1100 / 1100 Weight 85.7 kg Intake: IV 1807.5 / 1807.5 100 / 100 1100 / 1100 D5W Inj 1,000 ML @ 50 mls/hr IV 950 / 950 1000 / 1000 .CONT .Q20H AURELIO Rx#:[id number] Diprivan 1000 mg/100 ml Inj 1, 200 / 200 100 / 100 100 / 100 000 mg In 100 ml @ 5 MCG/KG/MIN 1.713 mls/hr IV.CONT TITRATE PRN Rx#:[id number] KCl 20 mEq Premix Inj 20 meq In 200 / 200 100 ml @ 50 mls/hr IV.SIG Q2H PRN Rx#:[id number] Depacon Inj 250 MG In NS Inj 207.5 / 207.5 100 ML @ 105 mls/hr IV.SIG Q6H A[facility]LIO Rx#:[id number] fentaNYL 10 mcg/mL Premix Drip 250 / 250 2,500 mcg In 250 ml @ 50 MCG/HR 5 mls/hr IV.SIG TITRATE PRN Rx #:[id number] Water Bolus Amount 300 / 300 250 / 250 Anesthesia Amount 350 / 350 Output: Urine Amount (Catheter) 4150 / 4150 2200 / 2200 Indwelling Temp Sensing 4150 / 4150 2200 / 2200 Catheter Other: Date of Last Bowel Movement 06/15/18 06/16/18 # Bowel Movements 1 1 Narrative: he patient is ventilated through tacheostomy. Minimal eye opening. Tracts. Moves to painful stimuli with all 4 extremities. Cranial Nerves: Pupils equal, 3 mm round, reactive to light. Eyes appear conjugated. There was no nystagmus, no papilledema. Face musculature appeared symmetrical at rest. Face sensation, olfaction, and hearing cannot be adequately assessed due to the patient's neurological condition. The patient has a corneal reflex. The patient has a gag reflex. The sternocleidomastoid and trapezius were symmetrical. Cervical Spine: The patient's neck is soft, supple, without nuchal rigidity. Reflexes: Deep tendon reflexes are 2+ and symmetrical in the biceps, triceps, and brachioradialis, bilaterally, in the upper extremities. In the lower extremities, the patellar and ankles are 2+, bilaterally. There is a bilateral plantar flexion response. There is no clonus or other abnormal reflexes noted. Sensory: On examination there there is response to painful stimuli, minimal Cerebellar: Examination cannot be adequately assessed due to the patient's neurological condition. Lungs: clear Heart: Regular rhythm and rate Skin: warm and dry - Urinary Catheter Management Indwelling Temp Sensing Catheter Cath placed during this visit: no <Jerrell Mas - Last Filed: 06/16/18 16:25> Assessment and Plan - Assessment (1) CHI (closed head injury) Code(s): S09.90XA - Unspecified injury of head, initial encounter Status: Acute - Plan cont critical care per trauma team cont neuro checks follow up neuro exam <Josephine Pena - Last Filed: 06/14/18 16:16> - Assessment (1) CHI (closed head injury) Code(s): S09.90XA - Unspecified injury of head, initial encounter Status: Acute Qualifiers: Encounter type: initial encounter Qualified Code(s): S09.90XA - Unspecified injury of head, initial encounter (2) Fracture of left orbit Code(s): S02.82XA - Fracture of other specified skull and facial bones, left side, initial encounter for closed fracture Status: Acute Qualifiers: Encounter type: initial encounter Fracture type: open Qualified Code(s): S02.82XB - Fracture of other specified skull and facial bones, left side, initial encounter for open fracture (3) Respiratory failure Code(s): J96.90 - Respiratory failure, unspecified, unspecified whether with hypoxia or hypercapnia Status: Acute Qualifiers: Chronicity: acute Respiratory failure complication: hypoxia and hypercapnia Qualified Code(s): J96.01 - Acute respiratory failure with hypoxia ; J96.02 - Acute respiratory failure with hypercapnia (4) Fracture of left orbital floor Code(s): S02.32XA - Fracture of orbital floor, left side, initial encounter for closed fracture Status: Acute (5) Major neurocognitive disorder as late effect of traumatic brain injury with behavioral disturbance Code(s): S06.9X9S - Unspecified intracranial injury with loss of consciousness of unspecified duration, sequela; F02.81 - Dementia in other diseases classified elsewhere with behavioral disturbance Status: Acute (6) HUSAM (acute kidney injury) Code(s): N17.9 - Acute kidney failure, unspecified Status: Acute (7) Hypernatremia Code(s): E87.0 - Hyperosmolality and hypernatremia Status: Acute (8) Fluid overload Code(s): E87.70 - Fluid overload, unspecified Status: Acute Qualifiers: Hypervolemia type: transfusion-associated Qualified Code(s): E87.71 - Transfusion associated circulatory overload - Plan Status post tracheostomy yesterday with improving PO2 FiO2 gradient on bilevel ventilation Today upper level pressure support decreased to 23 mmHg and then the patient has transitioned to assist control ventilatory mode Will gradually wean down and separate patient from the ventilator next 24-48 hours Abdomen soft active bowel sounds and patient requires placement of a feeding tube by GI Renal function is stabilizing at creatinine of 2 and patient has diuresed massive amounts of urine reducing his hypervolemia and bringing him near normovolemic Remains comatose, with minimal neurological improvement Continue with aggressive pulmonary toilette, nasotracheal suction, and breathing treatments with nebulizers. Daily PT and OT Renal: Continue to monitor closely urine output, BUN and creatinine Endocrine: Continue to Monitor serial Acu checks and SSI as needed in detail ID continue to monitor for signs of infection Continue Protonix for stress ulcer prophylaxis Continue Ra hose and SCD's for DVT prophylaxis Further recommendations will be provided depending on the patient's clinical evaluation and follow up studies. The exam, history, and the medical decision-making described in the above note were completed with the assistance of the mid-level provider. I reviewed and agree with the findings presented. I attest that I had a [id number] encounter with the patient on the same day, and personally performed and documented my assessment and findings in the medical record. <Jerrell Mas - Last Filed: 06/16/18 16:25>
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
[2018-06-14] MEDS ORDERED: levoFLOXacin 750 MG Tablet PO SCH ×2 (15:00→17:15)
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
[2018-06-14] MEDS: fentaNYL 10 mcg/mL Premix Drip 2,500 MCG/250 ML BAG IV.SIG PRN (17:00)
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
[2018-06-14] MEDS: SODIUM CHLOR 0.9% IV.SIG SCH (21:12)
[2018-06-14] MEDS: VALPROATE IV.SIG SCH (21:12)
[2018-06-15] MEDS: VALPROATE IV.SIG SCH ×3 (02:05→15:41)
[2018-06-15] MEDS: SODIUM CHLOR 0.9% IV.SIG SCH ×3 (02:05→15:41)
[2018-06-15] MEDS: Oral Hygiene Kit OROPHARYNG SCH ×4 (02:05→17:11)
[2018-06-15] MEDS: Propofol 1000 mg/100 ml Inj 1,000 MG/100 ML BOTTLE IV.CONT PRN ×4 (02:06→23:35)
[2018-06-15 04:37] LABS: Baso # (Auto) 0.1 th/mm3 (0.0-0.2); Baso % (Auto) 0.8 % (0.0-2.0); Eos # (Auto) 0.2 th/mm3 (0.0-0.4); Eos % (Auto) 2.3 % (0.0-4.0); Hematocrit 23.9 % (39.0-51.0); Lymph # (Auto) 1.6 th/mm3 (1.0-4.8); Lymph % (Auto) 16.8 % (9.0-44.0); Mean Corpuscular HGB Conc 33.4 % (32.0-36.0); Mean Corpuscular Hemoglobin 33.2 pg (27.0-34.0); Mean Corpuscular Volume 99.2 fL (80.0-100.0); Mean Platelet Volume 7.8 fL (7.0-11.0); Mono # (Auto) 1.1 th/mm3 (0.0-0.9); Mono % (Auto) 11.9 % (0.0-8.0); Neut # (Auto) 6.3 th/mm3 (1.8-7.7); Neut % (Auto) 68.2 % (16.0-70.0); Platelet Count 447 th/mm3 (150-450); Red Blood Count 2.41 mil/mm3 (4.50-5.90); Red Cell Distribution Width 13.6 % (11.6-17.2); White Blood Count 9.2 th/mm3 (4.0-11.0)
[2018-06-15 05:02] LABS: Calcium 9.3 mg/dL (8.5-10.1); Carbon Dioxide 30.2 meq/L (21.0-32.0); Potassium 3.2 meq/L (3.5-5.1)
[2018-06-15] MEDS: Dextrose 5% in Water Inj 1,000 ML IV.CONT SCH ×2 (05:53→15:00)
[2018-06-15 06:16] LABS: ABG Base Excess 7.9 mmol/L (-2-2); ABG PCO2 40 mmHg (38-42); ABG PO2 100 mmHg (61-120)
[2018-06-15] MEDS: Chlorothiazide Inj 500 MG Vial IV.PUSH SCH ×3 (08:04→20:51)
[2018-06-15] MEDS: Chlorhexidine 0.12% Oral Kit 15 ML UDC OROPHARYNG SCH ×2 (08:04→20:54)
[2018-06-15] MEDS: Povidone Iodine 10% Top Soln 118 ML Bottle TOPICAL SCH (08:04)
[2018-06-15] MEDS: Senna/Docusate Sodium 8.6/50 MG Tablet PO SCH ×2 (08:05→20:52)
[2018-06-15] MEDS: Pantoprazole Inj 40 MG Vial IV.PUSH SCH (08:05)
[2018-06-15] MEDS: Potassium Chlor 20 mEq Premix 20 MEQ/100 ML PIGGYBACK IV.SIG PRN ×2 (08:51→12:18)
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
--- NOTE | 2018-06-15 12:53 | P.PNNS ---
Subjective Interval history: 06/15: Nursing reports when sedation off patient opens eyes, smiles, following some commands 4 extremities. <Josephine Pena - Last Filed: 06/15/18 12:46> Physical Exam Vital signs: Vital Signs 06/14/18 12:50 06/14/18 14:00 06/14/18 15:18 Temperature Pulse Rate 72 Respiratory Rate 11 L 14 Blood Pressure Pulse Oximetry 100 100 06/14/18 15:24 06/14/18 16:00 06/14/18 18:00 Temperature 98.8 F Pulse Rate 74 74 82 Respiratory Rate 14 14 Blood Pressure 116/62 Pulse Oximetry 99 06/14/18 19:28 06/14/18 20:00 06/14/18 22:00 Temperature 99.3 F Pulse Rate 70 78 Respiratory Rate 14 14 Blood Pressure 120/64 Pulse Oximetry 99 100 06/14/18 23:17 06/15/18 00:00 06/15/18 02:00 Temperature 99.3 F Pulse Rate 72 63 Respiratory Rate 14 17 Blood Pressure 146/76 H Pulse Oximetry 100 100 06/15/18 03:20 06/15/18 04:00 06/15/18 06:00 Temperature 98.3 F Pulse Rate 68 73 Respiratory Rate 14 14 Blood Pressure 150/80 H Pulse Oximetry 99 100 06/15/18 07:45 06/15/18 08:00 06/15/18 10:00 Temperature 99.3 F Pulse Rate 72 76 Respiratory Rate 17 13 Blood Pressure 140/68 Pulse Oximetry 100 100 06/15/18 11:13 Temperature Pulse Rate Respiratory Rate 12 Blood Pressure Pulse Oximetry 98 Intake & Output 06/14/18 06/15/18 06/15/18 18:59 06:59 18:59 Intake Total 1805 / 1805 387.5 / 387.5 200 / 200 Output Total 3900 / 3900 4100 / 4100 Balance -2095 / -2095 -3712.5 / -3712.5 200 / 200 Weight 90.81 kg Intake: IV 1805 / 1805 387.5 / 387.5 200 / 200 D5W Inj 1,000 ML @ 50 mls/hr IV 1000 / 1000 .CONT .Q20H [facility] Rx#:[id number] Diprivan 1000 mg/100 ml Inj 1, 100 / 100 180 / 180 100 / 100 000 mg In 100 ml @ 5 MCG/KG/MIN 1.713 mls/hr IV.CONT TITRATE PRN Rx#:[id number] Maxipime Inj 1,000 MG In NS Inj 200 / 200 100 ML @ 200 mls/hr IV.SIG Q12H [facility] Rx#:[id number] Levaquin 750 mg Premix Inj 150 150 / 150 ML @ 150 mls/hr IV.SIG Q48H [facility] Rx#:[id number] KCl 20 mEq Premix Inj 20 meq In 100 / 100 100 ml @ 50 mls/hr IV.SIG Q2H [facility] Rx#:[id number] Depacon Inj 250 MG In NS Inj 105 / 105 207.5 / 207.5 100 ML @ 105 mls/hr IV.SIG Q6H [facility] Rx#:[id number] fentaNYL 10 mcg/mL Premix Drip 250 / 250 2,500 mcg In 250 ml @ 50 MCG/HR 5 mls/hr IV.SIG TITRATE PRN Rx #:[id number] Output: Urine 4100 / 4100 Urine Amount (Catheter) 3900 / 3900 Indwelling Temp Sensing 3900 / 3900 Catheter Other: Date of Last Bowel Movement 06/14/18 06/13/18 06/14/18 # Bowel Movements 1 1 Narrative: Tracheostomy Currently sedated localizes to noxious stimulation pupils equal - Urinary Catheter Management Indwelling Temp Sensing Catheter Cath placed during this visit: yes Reason for continuing: Other continuation reason Insertion date: 06/02/18 Insertion time: 17:55 <Josephine Pena - Last Filed: 06/15/18 12:46> Vital signs: Vital Signs 06/15/18 18:00 06/15/18 19:15 06/15/18 20:00 Temperature 98.8 F Pulse Rate 60 56 L Respiratory Rate 12 12 Blood Pressure 114/71 Pulse Oximetry 99 06/15/18 22:00 06/16/18 00:00 06/16/18 00:02 Temperature 98.5 F Pulse Rate 66 59 L Respiratory Rate 12 12 Blood Pressure 113/71 Pulse Oximetry 100 100 06/16/18 02:00 06/16/18 03:22 06/16/18 04:00 Temperature 99 F Pulse Rate 65 63 Respiratory Rate 12 12 Blood Pressure 117/74 Pulse Oximetry 100 100 06/16/18 06:00 06/16/18 08:00 06/16/18 08:49 Temperature 98.6 F Pulse Rate 63 62 Respiratory Rate 12 12 Blood Pressure 112/68 Pulse Oximetry 98 99 06/16/18 10:00 06/16/18 11:36 06/16/18 12:00 Temperature 98.6 F Pulse Rate 76 84 Respiratory Rate 12 20 Blood Pressure 125/77 Pulse Oximetry 99 99 06/16/18 14:00 06/16/18 15:32 06/16/18 16:00 Temperature Pulse Rate 82 73 Respiratory Rate 12 Blood Pressure Pulse Oximetry 95 Intake & Output 06/15/18 06/16/18 06/16/18 18:59 06:59 18:59 Intake Total 2107.5 / 2107.5 700 / 700 1100 / 1100 Output Total 4150 / 4150 2200 / 2200 Balance -2042.5 / -2042.5 -1500 / -1500 1100 / 1100 Weight 85.7 kg Intake: IV 1807.5 / 1807.5 100 / 100 1100 / 1100 D5W Inj 1,000 ML @ 50 mls/hr IV 950 / 950 1000 / 1000 .CONT .Q20H [facility] Rx#:[id number] Diprivan 1000 mg/100 ml Inj 1, 200 / 200 100 / 100 100 / 100 000 mg In 100 ml @ 5 MCG/KG/MIN 1.713 mls/hr IV.CONT TITRATE PRN Rx#:[id number] KCl 20 mEq Premix Inj 20 meq In 200 / 200 100 ml @ 50 mls/hr IV.SIG Q2H [facility]N Rx#:[id number] Depacon Inj 250 MG In NS Inj 207.5 / 207.5 100 ML @ 105 mls/hr IV.SIG Q6H [facility] Rx#:[id number] fentaNYL 10 mcg/mL Premix Drip 250 / 250 2,500 mcg In 250 ml @ 50 MCG/HR 5 mls/hr IV.SIG TITRATE PRN Rx #:[id number] Water Bolus Amount 300 / 300 250 / 250 Anesthesia Amount 350 / 350 Output: Urine Amount (Catheter) 4150 / 4150 2200 / 2200 Indwelling Temp Sensing 4150 / 4150 2200 / 2200 Catheter Other: Date of Last Bowel Movement 06/15/18 06/16/18 # Bowel Movements 1 1 Narrative: The patient is ventilated though racheostomy. open eyes. Localizes to painful stimuli with all 4 extremities. Cranial Nerves: Pupils equal, 3 mm round, reactive to light. Eyes appear conjugated. There was no nystagmus, no papilledema. Face musculature appeared symmetrical at rest. Face sensation, olfaction, and hearing cannot be adequately assessed due to the patient's neurological condition. The patient has a corneal reflex. The patient has a gag reflex. The sternocleidomastoid and trapezius were symmetrical. Cervical Spine: The patient's neck is soft, supple, without nuchal rigidity. Motor: His muscle tone and bulk are normal. He moves purposefully all 4 extremities symmetrically. Reflexes: Deep tendon reflexes are 2+ and symmetrical in the biceps, triceps, and brachioradialis, bilaterally, in the upper extremities. In the lower extremities, the patellar and ankles are 2+, bilaterally. There is a bilateral plantar flexion response. There is no clonus or other abnormal reflexes noted. Sensory: On examination there there is response to painful stimuli, localizing with both upper and lower extremities. Cerebellar: Examination cannot be adequately assessed due to the patient's neurological condition. Lungs: clear Heart: Regular rhythm and rate Skin: warm and dry - Urinary Catheter Management Indwelling Temp Sensing Catheter Cath placed during this visit: no <Jerrell Mas - Last Filed: 06/16/18 16:52> Assessment and Plan - Assessment (1) CHI (closed head injury) Code(s): S09.90XA - Unspecified injury of head, initial encounter Status: Acute Qualifiers: Encounter type: initial encounter Qualified Code(s): S09.90XA - Unspecified injury of head, initial encounter - Plan cont critical care per trauma team cont neuro checks follow up neuro exam <Josephine Pena - Last Filed: 06/15/18 12:46> - Assessment (1) CHI (closed head injury) Code(s): S09.90XA - Unspecified injury of head, initial encounter Status: Acute Qualifiers: Encounter type: initial encounter Qualified Code(s): S09.90XA - Unspecified injury of head, initial encounter (2) Fracture of left orbit Code(s): S02.82XA - Fracture of other specified skull and facial bones, left side, initial encounter for closed fracture Status: Acute Qualifiers: Encounter type: initial encounter Fracture type: open Qualified Code(s): S02.82XB - Fracture of other specified skull and facial bones, left side, initial encounter for open fracture (3) Respiratory failure Code(s): J96.90 - Respiratory failure, unspecified, unspecified whether with hypoxia or hypercapnia Status: Acute Qualifiers: Chronicity: acute Respiratory failure complication: hypoxia and hypercapnia Qualified Code(s): J96.01 - Acute respiratory failure with hypoxia ; J96.02 - Acute respiratory failure with hypercapnia (4) Fracture of left orbital floor Code(s): S02.32XA - Fracture of orbital floor, left side, initial encounter for closed fracture Status: Acute (5) Major neurocognitive disorder as late effect of traumatic brain injury with behavioral disturbance Code(s): S06.9X9S - Unspecified intracranial injury with loss of consciousness of unspecified duration, sequela; F02.81 - Dementia in other diseases classified elsewhere with behavioral disturbance Status: Acute (6) HUSAM (acute kidney injury) Code(s): N17.9 - Acute kidney failure, unspecified Status: Acute (7) Hypernatremia Code(s): E87.0 - Hyperosmolality and hypernatremia Status: Acute (8) Fluid overload Code(s): E87.70 - Fluid overload, unspecified Status: Acute Qualifiers: Hypervolemia type: transfusion-associated Qualified Code(s): E87.71 - Transfusion associated circulatory overload - Attending Attestation Patient doing somewhat better slightly opening eyes and turning his head but does not follow any commands Hemodynamically stable Bilateral breath sounds good PO2 FiO2 gradient and mild respiratory alkalosis and hypocarbia. Patient had tracheostomy and PEG placement today We will start weaning off the ventilator On sedation vacation patient went wild and was trashing and fighting the respirator He was started on Seroquel to wean down the propofol remain on Seroquel He may need a Precedex drip Renal function preserved creatinine has plateaued around 2 He has diuresed over 10 L of fluid Continue aggressive pulmonary toilette, nasotracheal suction, and breathing treatments with nebulizers. Daily PT and OT Renal: Continue to monitor closely urine output, BUN and creatinine Endocrine: Continue to Monitor serial Acu checks and SSI as needed in detail ID continue to monitor for signs of infection Continue Protonix for stress ulcer prophylaxis Continue Ra hose and SCD's for DVT prophylaxis Further recommendations will be provided depending on the patient's clinical evaluation and follow up studies. <Jerrell Mas - Last Filed: 06/16/18 16:52>
--- NOTE | 2018-06-15 13:22 | P.PCN ---
Date of procedure: 06/15/18 Pre-op diagnosis: Respiratory failure, dysphagia, patient needing PEG tube Procedure: PROCEDURE PERFORMED EGD with PEG placement INDICATION FOR PROCEDURE Respiratory failure, dysphagia, patient needing long-term nutritional access PROCEDURE: The procedure, risks and benefits were discussed with Patient/POA and informed consent was obtained. Anesthesia sedated Patient with Diprivan. Patient was placed in the left lateral decubitus position. EGD: The Pentax videoscope was introduced through the oropharynx and advanced to the second portion of the duodenum under direct visualization. Retroflexion was performed in the stomach. FINDINGS: The esophagus this was normal The stomach this was normal The duodenum this was normal Following the evaluation of the stomach and the duodenum the stomach was insufflated with air and the area of PEG placement was identified through indentation and transillumination the area was prepped and draped in usual fashion 5 cc of lidocaine were injected locally a small incision was made then an Angiocath was passed into the stomach through which a guidewire was passed this was retrieved with the scope into that a PEG tube was attached and pulled into place and thereafter secured in usual fashion The patient tolerated procedure well and there are no immediate complications ESTIMATED BLOOD LOSS: None SPECIMENS REMOVED: None COMPLICATIONS: None IMPRESSION: Normal EGD Successful PEG placement PLAN: PLAN: 1. May use PEG tube for medications today 2. May start feeding tomorrow 3. May obtain nutritional consult for tube feeding 4. Flush tube with 50 cc of water every 4-6 hours 5. Always flush tube after feedings 6. Apply abdominal binder as necessary 7. Clamp G-tube after use and flush. Anesthesia: MAC Surgeon: Cristiano Larkin Pathology: none sent Condition: stable Disposition: no change
[2018-06-15] MEDS: QUEtiapine 25 MG Tablet PO SCH ×2 (13:24→20:52)
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
[2018-06-15] MEDS ORDERED: Chlorothiazide Inj 500 MG Vial IV.PUSH SCH (16:00)
[2018-06-15] MEDS: fentaNYL 10 mcg/mL Premix Drip 2,500 MCG/250 ML BAG IV.SIG PRN (16:00)
--- NOTE | 2018-06-15 16:34 | P.PNNP ---
Subjective Interval history: S/P PEG placement. He is awake but not following commands, on Propofol and fentanyl gtts. Renal function is stable. Excellent response to diuretics. <Gladis Ramos - Last Filed: 06/15/18 16:29> Physical Exam Vital signs: Vital Signs 06/14/18 18:00 06/14/18 19:28 06/14/18 20:00 Temperature 99.3 F Pulse Rate 82 70 Respiratory Rate 14 14 Blood Pressure 120/64 Pulse Oximetry 99 100 06/14/18 22:00 06/14/18 23:17 06/15/18 00:00 Temperature 99.3 F Pulse Rate 78 72 Respiratory Rate 14 17 Blood Pressure 146/76 H Pulse Oximetry 100 100 06/15/18 02:00 06/15/18 03:20 06/15/18 04:00 Temperature 98.3 F Pulse Rate 63 68 Respiratory Rate 14 14 Blood Pressure 150/80 H Pulse Oximetry 99 100 06/15/18 06:00 06/15/18 07:45 06/15/18 08:00 Temperature 99.3 F Pulse Rate 73 72 Respiratory Rate 17 13 Blood Pressure 140/68 Pulse Oximetry 100 100 06/15/18 10:00 06/15/18 11:13 06/15/18 12:00 Temperature 99 F Pulse Rate 76 64 Respiratory Rate 12 14 Blood Pressure 121/79 Pulse Oximetry 98 100 06/15/18 15:06 Temperature Pulse Rate Respiratory Rate 12 Blood Pressure Pulse Oximetry 100 Intake & Output 06/14/18 06/15/18 06/15/18 18:59 06:59 18:59 Intake Total 1805 / 1805 387.5 / 387.5 305 / 305 Output Total 3900 / 3900 4100 / 4100 Balance -2095 / -2095 -3712.5 / -3712.5 305 / 305 Weight 90.81 kg Intake: IV 1805 / 1805 387.5 / 387.5 305 / 305 D5W Inj 1,000 ML @ 50 mls/hr IV 1000 / 1000 .CONT .Q20H [facility] Rx#:[id number] Diprivan 1000 mg/100 ml Inj 1, 100 / 100 180 / 180 100 / 100 000 mg In 100 ml @ 5 MCG/KG/MIN 1.713 mls/hr IV.CONT TITRATE PRN Rx#:[id number] Maxipime Inj 1,000 MG In NS Inj 200 / 200 100 ML @ 200 mls/hr IV.SIG Q12H [facility] Rx#:[id number] Levaquin 750 mg Premix Inj 150 150 / 150 ML @ 150 mls/hr IV.SIG Q48H [facility] Rx#:[id number] KCl 20 mEq Premix Inj 20 meq In 100 / 100 100 ml @ 50 mls/hr IV.SIG Q2H PRN Rx#:[id number] Depacon Inj 250 MG In NS Inj 105 / 105 207.5 / 207.5 105 / 105 100 ML @ 105 mls/hr IV.SIG Q6H [facility] Rx#:[id number] fentaNYL 10 mcg/mL Premix Drip 250 / 250 2,500 mcg In 250 ml @ 50 MCG/HR 5 mls/hr IV.SIG TITRATE PRN Rx #:[id number] Output: Urine 4100 / 4100 Urine Amount (Catheter) 3900 / 3900 Indwelling Temp Sensing 3900 / 3900 Catheter Other: Date of Last Bowel Movement 06/14/18 06/13/18 06/14/18 # Bowel Movements 1 1 - Constitutional no acute distress - Routine HEENT Exam Head: Present: normocephalic Comments: new trach - Routine Neck Exam Present: supple - Routine Respiratory Exam Present: patient mechanically ventilated, CTA bilaterally. Absent: accessory muscle use - Routine Cardiovascular Exam Present: RRR, S1, S2 - Routine Abdominal Exam Present: soft, normoactive bowel sounds, distended Comments: PEG - Routine Exam Penile: Present: swelling Scrotal: Present: swelling - Routine Skin Exam Present: intact, warm - Routine Neurological Exam Present: alert, moving all extremities cannot evaluate speech, not following commands - Detailed Neurological Exam: Coma Scale Eye Opening: Spontaneous Verbal Response: None Motor Response: Localizing [place] Coma Scale Total: 10 - Routine Psychiatric Exam Present: unable to assess - Urinary Catheter Management Indwelling Temp Sensing Catheter Cath placed during this visit: yes Reason for continuing: Other continuation reason Insertion date: 06/02/18 Insertion time: 17:55 <Gladis Ramos - Last Filed: 06/15/18 16:29> Vital signs: Vital Signs 06/15/18 12:00 06/15/18 14:00 06/15/18 15:06 Temperature 99 F Pulse Rate 64 58 L Respiratory Rate 14 12 Blood Pressure 121/79 Pulse Oximetry 100 100 06/15/18 16:00 06/15/18 18:00 06/15/18 19:15 Temperature 99.3 F Pulse Rate 70 60 Respiratory Rate 13 12 Blood Pressure 132/83 Pulse Oximetry 100 99 06/15/18 20:00 06/15/18 22:00 06/16/18 00:00 Temperature 98.8 F 98.5 F Pulse Rate 56 L 66 59 L Respiratory Rate 12 12 Blood Pressure 114/71 113/71 Pulse Oximetry 100 06/16/18 00:02 06/16/18 02:00 06/16/18 03:22 Temperature Pulse Rate 65 Respiratory Rate 12 12 Blood Pressure Pulse Oximetry 100 100 06/16/18 04:00 06/16/18 06:00 06/16/18 08:00 Temperature 99 F 98.6 F Pulse Rate 63 63 62 Respiratory Rate 12 12 Blood Pressure 117/74 112/68 Pulse Oximetry 100 98 06/16/18 08:49 06/16/18 10:00 Temperature Pulse Rate 76 Respiratory Rate 12 Blood Pressure Pulse Oximetry 99 Intake & Output 06/15/18 06/16/18 06/16/18 18:59 06:59 18:59 Intake Total 2107.5 / 2107.5 700 / 700 100 / 100 Output Total 4150 / 4150 2200 / 2200 Balance -2042.5 / -2042.5 -1500 / -1500 100 / 100 Weight 85.7 kg Intake: IV 1807.5 / 1807.5 100 / 100 100 / 100 D5W Inj 1,000 ML @ 50 mls/hr IV 950 / 950 .CONT .Q20H [facility] Rx#:[id number] Diprivan 1000 mg/100 ml Inj 1, 200 / 200 100 / 100 100 / 100 000 mg In 100 ml @ 5 MCG/KG/MIN 1.713 mls/hr IV.CONT TITRATE PRN Rx#:[id number] KCl 20 mEq Premix Inj 20 meq In 200 / 200 100 ml @ 50 mls/hr IV.SIG Q2H PRN Rx#:[id number] Depacon Inj 250 MG In NS Inj 207.5 / 207.5 100 ML @ 105 mls/hr IV.SIG Q6H [facility] Rx#:[id number] fentaNYL 10 mcg/mL Premix Drip 250 / 250 2,500 mcg In 250 ml @ 50 MCG/HR 5 mls/hr IV.SIG TITRATE PRN Rx #:[id number] Water Bolus Amount 300 / 300 250 / 250 Anesthesia Amount 350 / 350 Output: Urine Amount (Catheter) 4150 / 4150 2200 / 2200 Indwelling Temp Sensing 4150 / 4150 2200 / 2200 Catheter Other: Date of Last Bowel Movement 06/15/18 06/16/18 # Bowel Movements 1 1 - Urinary Catheter Management Indwelling Temp Sensing Catheter Cath placed during this visit: no <Brown Su - Last Filed: 06/16/18 11:21> Assessment and Plan - Assessment (1) HUSAM (acute kidney injury) Code(s): N17.9 - Acute kidney failure, unspecified Status: Acute Plan: Normal renal function on arrival Most likely suffered vancomycin induced nephrotoxicity or allergic interstitial nephritis Also, his intraabdominal pressure were very high which may have compromised renal circulation Responding to diuretics, renal function remained stable overnight Stop Bumex, increase Diuril to 500 mg BID Monitor fluid status Avoid nephrotoxic agents, dose appropriate to renal status Continue hypotonic fluids Avoid hypotension. Repeat labs daily (2) Fluid overload Code(s): E87.70 - Fluid overload, unspecified Status: Acute Qualifiers: Hypervolemia type: transfusion-associated Qualified Code(s): E87.71 - Transfusion associated circulatory overload Plan: Continue diuretics with aforementioned changes, see above Monitor I/O, weight, oxygen requirement, etc. (3) Hypernatremia Code(s): E87.0 - Hyperosmolality and hypernatremia Status: Acute Plan: Improving slowly, On Free water via OG tube Thiazide diuretics preferred Continue D5W Follow BMP (4) Trauma Code(s): T14.90XA - Injury, unspecified, initial encounter Status: Acute Plan: Multiple injuries including facial fracture, subarachnoid hemorrhage, and T4-T6 fracture Trauma and neurosurgery following Continuous pain control (5) CHI (closed head injury) Code(s): S09.90XA - Unspecified injury of head, initial encounter Status: Acute Qualifiers: Encounter type: initial encounter Qualified Code(s): S09.90XA - Unspecified injury of head, initial encounter Plan: Neurosurgery following Appreciate recommendations. <Gladis Ramos - Last Filed: 06/15/18 16:29> - Assessment (1) HUSAM (acute kidney injury) Code(s): N17.9 - Acute kidney failure, unspecified Status: Acute (2) Fluid overload Code(s): E87.70 - Fluid overload, unspecified Status: Acute Qualifiers: Hypervolemia type: transfusion-associated Qualified Code(s): E87.71 - Transfusion associated circulatory overload (3) Hypernatremia Code(s): E87.0 - Hyperosmolality and hypernatremia Status: Acute (4) Trauma Code(s): T14.90XA - Injury, unspecified, initial encounter Status: Acute (5) CHI (closed head injury) Code(s): S09.90XA - Unspecified injury of head, initial encounter Status: Acute Qualifiers: Encounter type: initial encounter Qualified Code(s): S09.90XA - Unspecified injury of head, initial encounter - Attending Attestation patient was seen and examined. Agree with above assessment and plan. I stopped Bumex. Continue Diuril at 250 mg IV BID. Excellent urine output. Renal function is stable. <Brown Su - Last Filed: 06/16/18 11:21>
[2018-06-15 20:31] LABS: Potassium 3.4 meq/L (3.5-5.1)
[2018-06-15 20:33] LABS: Magnesium 2.6 mg/dL (1.5-2.5)
[2018-06-15] MEDS: Heparin - SQ 10,000 UNITS/ML Vial SQ SCH (22:05)
[2018-06-16] MEDS: Oral Hygiene Kit OROPHARYNG SCH ×4 (01:39→17:07)
[2018-06-16 05:13] LABS: ABG Base Excess 7.8 mmol/L (-2-2); ABG PCO2 52 mmHg (38-42); ABG PO2 123 mmHg (61-120)
[2018-06-16] MEDS: Heparin - SQ 10,000 UNITS/ML Vial SQ SCH ×3 (05:58→21:14)
[2018-06-16 06:45] LABS: Baso # (Auto) 0.1 th/mm3 (0.0-0.2); Baso % (Auto) 0.9 % (0.0-2.0); Eos # (Auto) 0.2 th/mm3 (0.0-0.4); Eos % (Auto) 2.1 % (0.0-4.0); Hematocrit 25.3 % (39.0-51.0); Hemoglobin 8.5 gm/dL (13.0-17.0); Lymph # (Auto) 1.4 th/mm3 (1.0-4.8); Mean Corpuscular HGB Conc 33.8 % (32.0-36.0); Mean Corpuscular Hemoglobin 33.7 pg (27.0-34.0); Mean Corpuscular Volume 99.6 fL (80.0-100.0); Mean Platelet Volume 8.1 fL (7.0-11.0); Mono # (Auto) 0.9 th/mm3 (0.0-0.9); Mono % (Auto) 9.8 % (0.0-8.0); Neut # (Auto) 6.2 th/mm3 (1.8-7.7); Neut % (Auto) 71.2 % (16.0-70.0); Platelet Count 476 th/mm3 (150-450); Red Blood Count 2.54 mil/mm3 (4.50-5.90); Red Cell Distribution Width 13.6 % (11.6-17.2); White Blood Count 8.7 th/mm3 (4.0-11.0)
[2018-06-16 07:16] LABS: Calcium 9.2 mg/dL (8.5-10.1); Carbon Dioxide 31.2 meq/L (21.0-32.0); Potassium 3.6 meq/L (3.5-5.1)
[2018-06-16] MEDS: Dextrose 5% in Water Inj 1,000 ML IV.CONT SCH ×2 (07:55→11:00)
[2018-06-16] MEDS: Chlorhexidine 0.12% Oral Kit 15 ML UDC OROPHARYNG SCH ×2 (08:58→20:55)
[2018-06-16] MEDS: Propofol 1000 mg/100 ml Inj 1,000 MG/100 ML BOTTLE IV.CONT PRN (08:58)
[2018-06-16] MEDS: Chlorothiazide Inj 500 MG Vial IV.PUSH SCH (09:00)
[2018-06-16] MEDS: Pantoprazole Inj 40 MG Vial IV.PUSH SCH (09:01)
[2018-06-16] MEDS: QUEtiapine 25 MG Tablet PO SCH ×2 (09:01→20:55)
[2018-06-16] MEDS: Senna/Docusate Sodium 8.6/50 MG Tablet PO SCH ×2 (09:01→20:55)
[2018-06-16] MEDS: Povidone Iodine 10% Top Soln 118 ML Bottle TOPICAL SCH (09:02)
[2018-06-16] MEDS ORDERED: QUEtiapine 25 MG Tablet PO ONE (09:46)
--- NOTE | 2018-06-16 09:54 | P.PNNS ---
Subjective Interval history: Patient sedated on Diprivan and Fentanyl drip. He opens his eyes to pain. Pupils 3 mm bilaterally and reactive bilaterally. He localizes to pain. Trach in place patient on vent. <Manolo Milligan - Last Filed: 06/16/18 09:44> Physical Exam Vital signs: Vital Signs 06/15/18 10:00 06/15/18 11:13 06/15/18 12:00 Temperature 99 F Pulse Rate 76 64 Respiratory Rate 12 14 Blood Pressure 121/79 Pulse Oximetry 98 100 06/15/18 14:00 06/15/18 15:06 06/15/18 16:00 Temperature 99.3 F Pulse Rate 58 L 70 Respiratory Rate 12 13 Blood Pressure 132/83 Pulse Oximetry 100 100 06/15/18 18:00 06/15/18 19:15 06/15/18 20:00 Temperature 98.8 F Pulse Rate 60 56 L Respiratory Rate 12 12 Blood Pressure 114/71 Pulse Oximetry 99 06/15/18 22:00 06/16/18 00:00 06/16/18 00:02 Temperature 98.5 F Pulse Rate 66 59 L Respiratory Rate 12 12 Blood Pressure 113/71 Pulse Oximetry 100 100 06/16/18 02:00 06/16/18 03:22 06/16/18 04:00 Temperature 99 F Pulse Rate 65 63 Respiratory Rate 12 12 Blood Pressure 117/74 Pulse Oximetry 100 100 06/16/18 06:00 06/16/18 08:49 Temperature Pulse Rate 63 Respiratory Rate 12 Blood Pressure Pulse Oximetry 99 Intake & Output 06/15/18 06/16/18 06/16/18 18:59 06:59 18:59 Intake Total 2107.5 / 2107.5 700 / 700 100 / 100 Output Total 4150 / 4150 2200 / 2200 Balance -2042.5 / -2042.5 -1500 / -1500 100 / 100 Weight 85.7 kg Intake: IV 1807.5 / 1807.5 100 / 100 100 / 100 D5W Inj 1,000 ML @ 50 mls/hr IV 950 / 950 .CONT .Q20H [facility] Rx#:[id number] Diprivan 1000 mg/100 ml Inj 1, 200 / 200 100 / 100 100 / 100 000 mg In 100 ml @ 5 MCG/KG/MIN 1.713 mls/hr IV.CONT TITRATE PRN Rx#:[id number] KCl 20 mEq Premix Inj 20 meq In 200 / 200 100 ml @ 50 mls/hr IV.SIG Q2H PRN Rx#:[id number] Depacon Inj 250 MG In NS Inj 207.5 / 207.5 100 ML @ 105 mls/hr IV.SIG Q6H [facility] Rx#:[id number] fentaNYL 10 mcg/mL Premix Drip 250 / 250 2,500 mcg In 250 ml @ 50 MCG/HR 5 mls/hr IV.SIG TITRATE PRN Rx #:[id number] Water Bolus Amount 300 / 300 250 / 250 Anesthesia Amount 350 / 350 Output: Urine Amount (Catheter) 4150 / 4150 2200 / 2200 Indwelling Temp Sensing 4150 / 4150 2200 / 2200 Catheter Other: Date of Last Bowel Movement 06/15/18 06/16/18 # Bowel Movements 1 1 - Constitutional no acute distress, average body habitus - Routine HEENT Exam Head: Present: abrasion (right face/cheek area.) Eye: Present: PERRL. Absent: conjunctival icterus - Routine Neck Exam Present: trachea midline (Trach in place.) - Routine Respiratory Exam Present: patient mechanically ventilated (Pressure control. Rate 12. Peep 12. FiO2 35%.), CTA bilaterally. Absent: rhonchi, wheezes - Routine Cardiovascular Exam Present: RRR, S1, S2. Absent: murmur - Routine Abdominal Exam Present: soft, normoactive bowel sounds. Absent: distended - Routine Extremities Exam Absent: cyanosis - Routine Skin Exam Present: wounds (Abrasions right face and dorsal aspect of hands bilaterally, clean and dry.). Absent: cyanosis, erythema - Routine Neurological Exam Present: altered mental status (Pt on Diprivan and Fentanyl drips.), moving all extremities. Absent: motor deficit - Detailed Neurological Exam: Coma Scale Eye Opening: To pressure Verbal Response: None Motor Response: Localizing [place] Coma Scale Total: 8 - Routine Psychiatric Exam Present: unable to assess - Urinary Catheter Management Indwelling Temp Sensing Catheter Cath placed during this visit: yes Reason for continuing: Hourly intake/output Insertion date: 06/02/18 Insertion time: 17:55 <Manolo Milligan - Last Filed: 06/16/18 09:44> Vital signs: Vital Signs 06/15/18 14:00 06/15/18 15:06 06/15/18 16:00 Temperature 99.3 F Pulse Rate 58 L 70 Respiratory Rate 12 13 Blood Pressure 132/83 Pulse Oximetry 100 100 06/15/18 18:00 06/15/18 19:15 06/15/18 20:00 Temperature 98.8 F Pulse Rate 60 56 L Respiratory Rate 12 12 Blood Pressure 114/71 Pulse Oximetry 99 06/15/18 22:00 06/16/18 00:00 06/16/18 00:02 Temperature 98.5 F Pulse Rate 66 59 L Respiratory Rate 12 12 Blood Pressure 113/71 Pulse Oximetry 100 100 06/16/18 02:00 06/16/18 03:22 06/16/18 04:00 Temperature 99 F Pulse Rate 65 63 Respiratory Rate 12 12 Blood Pressure 117/74 Pulse Oximetry 100 100 06/16/18 06:00 06/16/18 08:00 06/16/18 08:49 Temperature 98.6 F Pulse Rate 63 62 Respiratory Rate 12 12 Blood Pressure 112/68 Pulse Oximetry 98 99 06/16/18 10:00 06/16/18 11:36 06/16/18 12:00 Temperature 98.6 F Pulse Rate 76 84 Respiratory Rate 12 20 Blood Pressure 125/77 Pulse Oximetry 99 99 Intake & Output 06/15/18 06/16/18 06/16/18 18:59 06:59 18:59 Intake Total 2107.5 / 2107.5 700 / 700 1100 / 1100 Output Total 4150 / 4150 2200 / 2200 Balance -2042.5 / -2042.5 -1500 / -1500 1100 / 1100 Weight 85.7 kg Intake: IV 1807.5 / 1807.5 100 / 100 1100 / 1100 D5W Inj 1,000 ML @ 50 mls/hr IV 950 / 950 1000 / 1000 .CONT .Q20H [facility] Rx#:[id number] Diprivan 1000 mg/100 ml Inj 1, 200 / 200 100 / 100 100 / 100 000 mg In 100 ml @ 5 MCG/KG/MIN 1.713 mls/hr IV.CONT TITRATE PRN Rx#:[id number] KCl 20 mEq Premix Inj 20 meq In 200 / 200 100 ml @ 50 mls/hr IV.SIG Q2H PRN Rx#:[id number] Depacon Inj 250 MG In NS Inj 207.5 / 207.5 100 ML @ 105 mls/hr IV.SIG Q6H [facility] Rx#:[id number] fentaNYL 10 mcg/mL Premix Drip 250 / 250 2,500 mcg In 250 ml @ 50 MCG/HR 5 mls/hr IV.SIG TITRATE PRN Rx #:[id number] Water Bolus Amount 300 / 300 250 / 250 Anesthesia Amount 350 / 350 Output: Urine Amount (Catheter) 4150 / 4150 2200 / 2200 Indwelling Temp Sensing 4150 / 4150 2200 / 2200 Catheter Other: Date of Last Bowel Movement 06/15/18 06/16/18 # Bowel Movements 1 1 - Urinary Catheter Management Indwelling Temp Sensing Catheter Cath placed during this visit: no <CoraJohn souza - Last Filed: 06/16/18 13:28> Assessment and Plan - Assessment (1) CHI (closed head injury) Code(s): S09.90XA - Unspecified injury of head, initial encounter Status: Acute Qualifiers: Encounter type: initial encounter Qualified Code(s): S09.90XA - Unspecified injury of head, initial encounter (2) Fracture of left orbit Code(s): S02.82XA - Fracture of other specified skull and facial bones, left side, initial encounter for closed fracture Status: Acute Qualifiers: Encounter type: initial encounter Fracture type: open Qualified Code(s): S02.82XB - Fracture of other specified skull and facial bones, left side, initial encounter for open fracture (3) Respiratory failure Code(s): J96.90 - Respiratory failure, unspecified, unspecified whether with hypoxia or hypercapnia Status: Acute Qualifiers: Chronicity: acute Respiratory failure complication: hypoxia and hypercapnia Qualified Code(s): J96.01 - Acute respiratory failure with hypoxia ; J96.02 - Acute respiratory failure with hypercapnia (4) Fracture of left orbital floor Code(s): S02.32XA - Fracture of orbital floor, left side, initial encounter for closed fracture Status: Acute (5) Major neurocognitive disorder as late effect of traumatic brain injury with behavioral disturbance Code(s): S06.9X9S - Unspecified intracranial injury with loss of consciousness of unspecified duration, sequela; F02.81 - Dementia in other diseases classified elsewhere with behavioral disturbance Status: Acute (6) HUSAM (acute kidney injury) Code(s): N17.9 - Acute kidney failure, unspecified Status: Acute (7) Hypernatremia Code(s): E87.0 - Hyperosmolality and hypernatremia Status: Acute (8) Fluid overload Code(s): E87.70 - Fluid overload, unspecified Status: Acute Qualifiers: Hypervolemia type: transfusion-associated Qualified Code(s): E87.71 - Transfusion associated circulatory overload - Plan cont critical care per trauma team cont neuro checks Okay to wean vent and sedation as clinical exam allows. Discussed plan with RN. <Manolo Milligan - Last Filed: 06/16/18 09:44> - Attending Attestation The exam, history, and the medical decision-making described in the above note were completed with the assistance of the mid-level provider. I reviewed and agree with the findings presented. I attest that I had a [id number] encounter with the patient on the same day, and personally performed and documented my assessment and findings in the medical record. <John Shepherd - Last Filed: 06/16/18 13:28>
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
--- NOTE | 2018-06-16 12:52 | P.PNNP ---
Subjective Interval history: Patient status post trach on ventilator being weaned down Awake and follows commands Physical Exam Vital signs: Vital Signs 06/15/18 14:00 06/15/18 15:06 06/15/18 16:00 Temperature 99.3 F Pulse Rate 58 L 70 Respiratory Rate 12 13 Blood Pressure 132/83 Pulse Oximetry 100 100 06/15/18 18:00 06/15/18 19:15 06/15/18 20:00 Temperature 98.8 F Pulse Rate 60 56 L Respiratory Rate 12 12 Blood Pressure 114/71 Pulse Oximetry 99 06/15/18 22:00 06/16/18 00:00 06/16/18 00:02 Temperature 98.5 F Pulse Rate 66 59 L Respiratory Rate 12 12 Blood Pressure 113/71 Pulse Oximetry 100 100 06/16/18 02:00 06/16/18 03:22 06/16/18 04:00 Temperature 99 F Pulse Rate 65 63 Respiratory Rate 12 12 Blood Pressure 117/74 Pulse Oximetry 100 100 06/16/18 06:00 06/16/18 08:00 06/16/18 08:49 Temperature 98.6 F Pulse Rate 63 62 Respiratory Rate 12 12 Blood Pressure 112/68 Pulse Oximetry 98 99 06/16/18 10:00 06/16/18 11:36 06/16/18 12:00 Temperature 98.6 F Pulse Rate 76 84 Respiratory Rate 12 20 Blood Pressure 125/77 Pulse Oximetry 99 99 Intake & Output 06/15/18 06/16/18 06/16/18 18:59 06:59 18:59 Intake Total 2107.5 / 2107.5 700 / 700 100 / 100 Output Total 4150 / 4150 2200 / 2200 Balance -2042.5 / -2042.5 -1500 / -1500 100 / 100 Weight 85.7 kg Intake: IV 1807.5 / 1807.5 100 / 100 100 / 100 D5W Inj 1,000 ML @ 50 mls/hr IV 950 / 950 .CONT .Q20H [facility] Rx#:[id number] Diprivan 1000 mg/100 ml Inj 1, 200 / 200 100 / 100 100 / 100 000 mg In 100 ml @ 5 MCG/KG/MIN 1.713 mls/hr IV.CONT TITRATE PRN Rx#:[id number] KCl 20 mEq Premix Inj 20 meq In 200 / 200 100 ml @ 50 mls/hr IV.SIG Q2H [facility]N Rx#:[id number] Depacon Inj 250 MG In NS Inj 207.5 / 207.5 100 ML @ 105 mls/hr IV.SIG Q6H [facility] Rx#:[id number] fentaNYL 10 mcg/mL Premix Drip 250 / 250 2,500 mcg In 250 ml @ 50 MCG/HR 5 mls/hr IV.SIG TITRATE PRN Rx #:[id number] Water Bolus Amount 300 / 300 250 / 250 Anesthesia Amount 350 / 350 Output: Urine Amount (Catheter) 4150 / 4150 2200 / 2200 Indwelling Temp Sensing 4150 / 4150 2200 / 2200 Catheter Other: Date of Last Bowel Movement 06/15/18 06/16/18 # Bowel Movements 1 1 - Constitutional no acute distress - Routine HEENT Exam Eye: Present: EOMI - Routine Neck Exam Present: supple (Status post tracheostomy) - Routine Respiratory Exam Present: CTA bilaterally - Routine Cardiovascular Exam Present: RRR - Routine Abdominal Exam Present: soft - Routine Extremities Exam Present: edema - Urinary Catheter Management Indwelling Temp Sensing Catheter Cath placed during this visit: yes Reason for continuing: Hourly intake/output Insertion date: 06/02/18 Insertion time: 17:55 Assessment and Plan - Assessment (1) HUSAM (acute kidney injury) Code(s): N17.9 - Acute kidney failure, unspecified Status: Acute Plan: I will stop Diuril as urine output improved sodium 147 is nonoliguric getting free water Edema improved as well Plan to get him off the ventilator Dr. Su to follow. (2) Hypernatremia Code(s): E87.0 - Hyperosmolality and hypernatremia Status: Acute Plan: Improved 147
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
[2018-06-16] MEDS: Haloperidol Inj 5 MG/ML Ampul IV.PUSH PRN (20:12)
[2018-06-17] MEDS: Oral Hygiene Kit OROPHARYNG SCH ×4 (00:27→16:20)
[2018-06-17] MEDS: fentaNYL 10 mcg/mL Premix Drip 2,500 MCG/250 ML BAG IV.SIG PRN (03:11)
[2018-06-17 05:07] LABS: Baso % (Auto) 0.5 % (0.0-2.0); Eos # (Auto) 0.1 th/mm3 (0.0-0.4); Eos % (Auto) 1.3 % (0.0-4.0); Hematocrit 24.8 % (39.0-51.0); Hemoglobin 8.4 gm/dL (13.0-17.0); Lymph # (Auto) 1.6 th/mm3 (1.0-4.8); Lymph % (Auto) 17.9 % (9.0-44.0); Mean Corpuscular Hemoglobin 33.7 pg (27.0-34.0); Mean Corpuscular Volume 99.1 fL (80.0-100.0); Mean Platelet Volume 7.8 fL (7.0-11.0); Mono # (Auto) 1.1 th/mm3 (0.0-0.9); Mono % (Auto) 12.1 % (0.0-8.0); Neut # (Auto) 6.2 th/mm3 (1.8-7.7); Neut % (Auto) 68.2 % (16.0-70.0); Platelet Count 453 th/mm3 (150-450); Red Cell Distribution Width 13.4 % (11.6-17.2); White Blood Count 9.1 th/mm3 (4.0-11.0)
[2018-06-17 05:34] LABS: Calcium 8.4 mg/dL (8.5-10.1); Carbon Dioxide 33.1 meq/L (21.0-32.0); Potassium 3.1 meq/L (3.5-5.1)
[2018-06-17] MEDS: Heparin - SQ 10,000 UNITS/ML Vial SQ SCH ×3 (05:48→21:44)
[2018-06-17] MEDS: Dextrose 5% in Water Inj 1,000 ML IV.CONT SCH ×2 (07:31→16:20)
[2018-06-17] MEDS: QUEtiapine 25 MG Tablet PO SCH ×2 (09:06→21:43)
[2018-06-17] MEDS: Pantoprazole Inj 40 MG Vial IV.PUSH SCH (09:07)
[2018-06-17] MEDS: Senna/Docusate Sodium 8.6/50 MG Tablet PO SCH ×2 (09:09→21:43)
[2018-06-17] MEDS: Povidone Iodine 10% Top Soln 118 ML Bottle TOPICAL SCH (09:09)
[2018-06-17] MEDS: Chlorhexidine 0.12% Oral Kit 15 ML UDC OROPHARYNG SCH ×2 (09:09→19:34)
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
[2018-06-17] MEDS: Dexmedetomidine Inj 200 MCG in Sodium Chlor 0.9% Inj 48 ML IV.CONT PRN ×2 (10:59→13:07)
[2018-06-17] MEDS ORDERED: RASS Change Order MISCELLANE ONE (11:00)
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
--- NOTE | 2018-06-17 14:09 | P.PNNP ---
Subjective Interval history: Patient on T-piece Physical Exam Vital signs: Vital Signs 06/16/18 15:32 06/16/18 16:00 06/16/18 17:58 Temperature 98.7 F Pulse Rate 73 93 H Respiratory Rate 12 14 Blood Pressure 123/80 Pulse Oximetry 95 97 06/16/18 19:50 06/16/18 20:00 06/16/18 22:00 Temperature 99 F Pulse Rate 90 95 H Respiratory Rate 15 15 Blood Pressure 131/99 H Pulse Oximetry 96 96 06/17/18 00:00 06/17/18 01:23 06/17/18 02:00 Temperature 98.7 F Pulse Rate 64 65 Respiratory Rate 12 20 Blood Pressure 106/66 Pulse Oximetry 96 93 L 06/17/18 04:00 06/17/18 04:17 06/17/18 06:00 Temperature 98.6 F Pulse Rate 63 74 Respiratory Rate 12 13 Blood Pressure 114/71 Pulse Oximetry 98 06/17/18 07:20 06/17/18 08:00 06/17/18 10:00 Temperature 100.0 F H Pulse Rate 66 66 Respiratory Rate 12 14 Blood Pressure 99/65 L Pulse Oximetry 95 96 06/17/18 10:20 06/17/18 11:30 06/17/18 12:00 Temperature 98.9 F Pulse Rate 71 Respiratory Rate 10 L 25 H Blood Pressure 123/74 Pulse Oximetry 92 L 90 L Intake & Output 06/16/18 06/17/18 06/17/18 18:59 06:59 18:59 Intake Total 1787 / 1787 611 / 611 1050 / 1050 Output Total 2450 / 2450 1750 / 1750 Balance -663 / -663 -1139 / -1139 1050 / 1050 Weight 82.6 kg Intake: IV 1250 / 1250 70 / 70 1050 / 1050 Precedex Inj 200 MCG In NS Inj 50 / 50 48 ML @ 0.2 MCG/KG/HR 4.13 mls/ hr IV.CONT TITRATE PRN Rx#: [id number] D5W Inj 1,000 ML @ 50 mls/hr IV 1000 / 1000 1000 / 1000 .CONT .Q20H [facility] Rx#:[id number] Diprivan 1000 mg/100 ml Inj 1, 100 / 100 000 mg In 100 ml @ 5 MCG/KG/MIN 1.713 mls/hr IV.CONT TITRATE PRN Rx#:[id number] Levaquin 750 mg Premix Inj 150 150 / 150 ML @ 150 mls/hr IV.SIG Q48H [facility] Rx#:[id number] fentaNYL 10 mcg/mL Premix Drip 70 / 70 2,500 mcg In 250 ml @ 50 MCG/HR 5 mls/hr IV.SIG TITRATE PRN Rx #:[id number] Tube Feeding 37 / 37 291 / 291 Water Bolus Amount 500 / 500 250 / 250 Output: Urine Amount (Catheter) 2450 / 2450 1750 / 1750 Indwelling Temp Sensing 2450 / 2450 1750 / 1750 Catheter Other: Date of Last Bowel Movement 06/17/18 # Bowel Movements 0 3 - Constitutional no acute distress - Routine HEENT Exam Head: Present: normocephalic - Routine Respiratory Exam Present: CTA bilaterally - Routine Cardiovascular Exam Present: RRR - Routine Abdominal Exam Present: soft, normoactive bowel sounds - Routine Extremities Exam Present: full ROM - Urinary Catheter Management Indwelling Temp Sensing Catheter Cath placed during this visit: yes Reason for continuing: Hourly intake/output Insertion date: 06/02/18 Insertion time: 17:55 Assessment and Plan - Assessment (1) HUSAM (acute kidney injury) Code(s): N17.9 - Acute kidney failure, unspecified Status: Acute (2) Hypernatremia Code(s): E87.0 - Hyperosmolality and hypernatremia Status: Acute - Plan Diuril doing well nonoliguric Getting free water Sodium improved Creatinine 1.8 Replace potassium K-Lyte ordered On T piece Dr. Su to follow
[2018-06-17] MEDS ORDERED: Potassium Chloride 25 MEQ Effervescent Tablet PO ONE (14:11)
[2018-06-17] MEDS: Dexmedetomidine Inj 1,000 MCG in Sodium Chlor 0.9% Inj 240 ML IV.CONT PRN (14:53)
[2018-06-18] MEDS: Oral Hygiene Kit OROPHARYNG SCH ×4 (01:57→16:44)
[2018-06-18] MEDS: Haloperidol Inj 5 MG/ML Ampul IV.PUSH PRN ×2 (02:20→10:41)
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
[2018-06-18 06:37] LABS: Calcium 8.9 mg/dL (8.5-10.1); Carbon Dioxide 30.1 meq/L (21.0-32.0); Potassium 3.4 meq/L (3.5-5.1)
[2018-06-18] MEDS: Heparin - SQ 10,000 UNITS/ML Vial SQ SCH ×3 (06:59→21:31)
[2018-06-18] MEDS: Dextrose 5% in Water Inj 1,000 ML IV.CONT SCH (07:00)
[2018-06-18] MEDS: Dexmedetomidine Inj 1,000 MCG in Sodium Chlor 0.9% Inj 240 ML IV.CONT PRN ×2 (07:02→21:23)
[2018-06-18] MEDS: Chlorhexidine 0.12% Oral Kit 15 ML UDC OROPHARYNG SCH ×2 (07:47→21:22)
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
[2018-06-18] MEDS: Senna/Docusate Sodium 8.6/50 MG Tablet PO SCH ×2 (08:36→21:32)
[2018-06-18] MEDS: Povidone Iodine 10% Top Soln 118 ML Bottle TOPICAL SCH (09:06)
[2018-06-18] MEDS: Pantoprazole Inj 40 MG Vial IV.PUSH SCH (09:06)
[2018-06-18] MEDS: QUEtiapine 25 MG Tablet PO SCH ×2 (09:06→14:52)
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
[2018-06-18 10:41] LABS: Albumin 2.4 g/dL (3.4-5.0)
[2018-06-18 10:43] LABS: Total Protein 6.9 g/dL (6.4-8.2)
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
--- NOTE | 2018-06-18 11:06 | P.PNNS ---
Subjective Interval history: 06/18: following simple commands, still requiring precedex sedation. <Josephine Pena - Last Filed: 06/18/18 11:05> Physical Exam Vital signs: Vital Signs 06/17/18 11:30 06/17/18 12:00 06/17/18 14:00 Temperature 98.9 F Pulse Rate 71 64 Respiratory Rate 25 H Blood Pressure 123/74 Pulse Oximetry 92 L 90 L 06/17/18 16:00 06/17/18 17:05 06/17/18 18:00 Temperature 98.9 F Pulse Rate 58 L 58 L Respiratory Rate 22 11 L Blood Pressure 103/67 Pulse Oximetry 93 L 90 L 06/17/18 19:34 06/17/18 20:00 06/17/18 22:00 Temperature 98.7 F Pulse Rate 54 L 52 L Respiratory Rate 11 L 14 Blood Pressure 137/84 Pulse Oximetry 98 98 06/17/18 23:10 06/18/18 00:00 06/18/18 02:00 Temperature 98.4 F Pulse Rate 58 L 70 Respiratory Rate 16 19 Blood Pressure 143/80 H Pulse Oximetry 97 98 06/18/18 04:00 06/18/18 04:02 06/18/18 06:00 Temperature 98.9 F Pulse Rate 58 L 48 L Respiratory Rate 21 19 Blood Pressure 145/78 H Pulse Oximetry 96 96 06/18/18 07:15 06/18/18 08:00 06/18/18 08:42 Temperature 99 F Pulse Rate 74 Respiratory Rate 21 20 Blood Pressure 149/88 H Pulse Oximetry 98 94 L 94 L Intake & Output 06/17/18 06/18/18 06/18/18 18:59 06:59 18:59 Intake Total 1623 / 1623 2036 / 2036 Output Total 1450 / 1450 1400 / 1400 Balance 173 / 173 636 / 636 Weight 83.6 kg Intake: IV 1100 / 1100 1250 / 1250 Precedex Inj 1,000 MCG In NS 250 / 250 Inj 240 ML @ 0.2 MCG/KG/HR 4.13 mls/hr IV.CONT TITRATE PRN Rx# :[id number] Precedex Inj 200 MCG In NS Inj 100 / 100 48 ML @ 0.2 MCG/KG/HR 4.13 mls/ hr IV.CONT TITRATE PRN Rx#: [id number] D5W Inj 1,000 ML @ 50 mls/hr IV 1000 / 1000 1000 / 1000 .CONT .Q20H [facility] Rx#:[id number] Tube Feeding 373 / 373 186 / 186 Water Bolus Amount 150 / 150 600 / 600 Output: Urine Amount (Catheter) 1450 / 1450 1400 / 1400 Indwelling Temp Sensing 1450 / 1450 1400 / 1400 Catheter Other: Date of Last Bowel Movement 06/17/18 06/17/18 # Bowel Movements 1 Narrative: drowsy, on precedex sedation eyes open pupils equal moves all four extremities tracheostomy - Urinary Catheter Management Indwelling Temp Sensing Catheter Cath placed during this visit: yes Reason for continuing: Hourly intake/output Insertion date: 06/02/18 Insertion time: 17:55 <Josephine Pena - Last Filed: 06/18/18 11:05> Vital signs: Vital Signs 06/22/18 18:00 06/22/18 19:56 06/22/18 20:00 Temperature 99.4 F Pulse Rate 93 H 80 Respiratory Rate 20 Blood Pressure 137/85 Pulse Oximetry 96 96 06/22/18 22:00 06/23/18 00:00 06/23/18 02:00 Temperature 99.2 F Pulse Rate 80 91 H 97 H Respiratory Rate 20 Blood Pressure 111/75 Pulse Oximetry 98 06/23/18 04:00 06/23/18 06:00 06/23/18 06:07 Temperature 99.3 F Pulse Rate 81 76 Respiratory Rate 13 Blood Pressure 149/91 H Pulse Oximetry 100 96 06/23/18 07:21 06/23/18 08:00 06/23/18 10:31 Temperature 99.8 F H Pulse Rate 96 H 96 H Respiratory Rate 24 Blood Pressure 153/89 H Pulse Oximetry 94 L 97 06/23/18 12:00 06/23/18 14:00 06/23/18 16:00 Temperature 100.9 F H 98.5 F Pulse Rate 90 91 H 90 Respiratory Rate 16 17 Blood Pressure 134/94 H 152/94 H Pulse Oximetry 97 94 L Intake & Output 06/22/18 06/23/18 06/23/18 18:59 06:59 18:59 Intake Total 1652 / 1652 826 / 826 Output Total 1600 / 1600 1000 / 1000 Balance 52 / 52 -174 / -174 Weight 72 kg Intake: IV 320 / 320 D5W Inj 1,000 ML @ 40 mls/hr IV 320 / 320 .CONT .Q24H [facility] Rx#:[id number] Tube Feeding 612 / 612 706 / 706 Tube Irrigant 120 / 120 120 / 120 Water Bolus Amount 600 / 600 Output: Urine 1600 / 1600 1000 / 1000 Other: Date of Last Bowel Movement 06/21/18 06/21/18 06/21/18 # Bowel Movements 1 # Incontinent Bowel Movements 2 Narrative: Mr Domingo is stuporose, drowsy Cranial nerve examination demonstrates the pupils to be equal, round, and reactive to light. Extra-ocular movements are intact with normal convergence. Facial motornormal and symmetrical.face sensation,hearing, visual acuity, taste, and olfaction can not be assessed due to the patient's neurological condition.Sternocleidomastoid and deltoid musclesasymmetrical. Neck is soft and supple. Tracheostomy in place Muscle testing revealsnormal bulk and tonewith gross movement in both upper and lowerextremities Sensory examination islimited but no deficits noted Deep tendon reflexes are1+ and symmetrical in upper andlower extremities. Bilateral plantar flexion response. Hoffmanns sign is negative. There is no clonus or other abnormal reflexes noted. Cerebellar examinationcan not be assessed due the patient's neurological condition Lungs: clear Heart: Regular rhythm and rate Skin: warm and dry - Urinary Catheter Management Indwelling Temp Sensing Catheter Cath placed during this visit: no <Jerrell Mas - Last Filed: 06/24/18 15:54> Assessment and Plan - Assessment (1) CHI (closed head injury) Code(s): S09.90XA - Unspecified injury of head, initial encounter Status: Acute Qualifiers: Encounter type: initial encounter Qualified Code(s): S09.90XA - Unspecified injury of head, initial encounter - Plan cont neuro checks cont therapy and rehab <Josephine Pena - Last Filed: 06/18/18 11:05> - Assessment (1) CHI (closed head injury) Code(s): S09.90XA - Unspecified injury of head, initial encounter Status: Acute Qualifiers: Encounter type: initial encounter Qualified Code(s): S09.90XA - Unspecified injury of head, initial encounter - Plan on Seroquel to wean down the propofol remain on Seroquel He may need a Precedex drip Renal function preserved creatinine has plateaued around 2 He has diuresed over 10 L of fluid Continue aggressive pulmonary toilette, nasotracheal suction, and breathing treatments with nebulizers. Daily PT and OT Renal: Continue to monitor closely urine output, BUN and creatinine Endocrine: Continue to Monitor serial Acu checks and SSI as needed in detail ID continue to monitor for signs of infection Continue Protonix for stress ulcer prophylaxis Continue Ra denise and SCD's for DVT prophylaxis <Jerrell Mas - Last Filed: 06/24/18 15:54>
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
--- NOTE | 2018-06-18 15:01 | P.PNNP ---
Subjective Interval history: Renal function is much better. He is on a T piece. Edema is much improved. On Precedex gtt. <Gladis Ramos - Last Filed: 06/18/18 14:56> Physical Exam Vital signs: Vital Signs 06/17/18 16:00 06/17/18 17:05 06/17/18 18:00 Temperature 98.9 F Pulse Rate 58 L 58 L Respiratory Rate 22 11 L Blood Pressure 103/67 Pulse Oximetry 93 L 90 L 06/17/18 19:34 06/17/18 20:00 06/17/18 22:00 Temperature 98.7 F Pulse Rate 54 L 52 L Respiratory Rate 11 L 14 Blood Pressure 137/84 Pulse Oximetry 98 98 06/17/18 23:10 06/18/18 00:00 06/18/18 02:00 Temperature 98.4 F Pulse Rate 58 L 70 Respiratory Rate 16 19 Blood Pressure 143/80 H Pulse Oximetry 97 98 06/18/18 04:00 06/18/18 04:02 06/18/18 06:00 Temperature 98.9 F Pulse Rate 58 L 48 L Respiratory Rate 21 19 Blood Pressure 145/78 H Pulse Oximetry 96 96 06/18/18 07:15 06/18/18 08:00 06/18/18 08:42 Temperature 99 F Pulse Rate 74 Respiratory Rate 21 20 Blood Pressure 149/88 H Pulse Oximetry 98 94 L 94 L 06/18/18 10:00 06/18/18 12:00 06/18/18 12:30 Temperature 99.8 F H Pulse Rate 64 84 Respiratory Rate 24 20 Blood Pressure 134/82 Pulse Oximetry 92 L Intake & Output 06/17/18 06/18/18 06/18/18 18:59 06:59 18:59 Intake Total 1623 / 1623 2036 / 2036 Output Total 1450 / 1450 1400 / 1400 Balance 173 / 173 636 / 636 Weight 83.6 kg Intake: IV 1100 / 1100 1250 / 1250 Precedex Inj 1,000 MCG In NS 250 / 250 Inj 240 ML @ 0.2 MCG/KG/HR 4.13 mls/hr IV.CONT TITRATE PRN Rx# :[id number] Precedex Inj 200 MCG In NS Inj 100 / 100 48 ML @ 0.2 MCG/KG/HR 4.13 mls/ hr IV.CONT TITRATE PRN Rx#: [id number] D5W Inj 1,000 ML @ 50 mls/hr IV 1000 / 1000 1000 / 1000 .CONT .Q20H AURELIO Rx#:[id number] Tube Feeding 373 / 373 186 / 186 Water Bolus Amount 150 / 150 600 / 600 Output: Urine Amount (Catheter) 1450 / 1450 1400 / 1400 Indwelling Temp Sensing 1450 / 1450 1400 / 1400 Catheter Other: Date of Last Bowel Movement 06/17/18 06/17/18 # Bowel Movements 1 - Constitutional mild distress, agitated - Routine HEENT Exam Head: Present: normocephalic - Routine Neck Exam Present: supple Comments: tracheostomy - Routine Respiratory Exam Present: crackles, diminished air movement. Absent: accessory muscle use - Routine Cardiovascular Exam Present: RRR, S1, S2 - Routine Abdominal Exam Present: soft, normoactive bowel sounds Comments: PEG - Routine Exam Testicular: Bilateral swelling (improved) - Routine Extremities Exam Absent: edema - Routine Skin Exam Present: intact, warm - Routine Neurological Exam Present: moving all extremities - Detailed Neurological Exam: Coma Scale Eye Opening: Spontaneous Motor Response: Obey commands - Urinary Catheter Management Indwelling Temp Sensing Catheter Cath placed during this visit: yes Reason for continuing: Hourly intake/output Insertion date: 06/02/18 Insertion time: 17:55 <Gladis Ramos - Last Filed: 06/18/18 14:56> Vital signs: Vital Signs 06/18/18 12:00 06/18/18 12:30 06/18/18 14:00 Temperature 99.8 F H Pulse Rate 84 66 Respiratory Rate 24 20 Blood Pressure 134/82 Pulse Oximetry 92 L 06/18/18 16:00 06/18/18 18:00 06/18/18 19:25 Temperature 99 F Pulse Rate 80 84 Respiratory Rate 23 Blood Pressure 143/89 H Pulse Oximetry 92 L 95 06/18/18 20:00 06/18/18 22:00 06/19/18 00:00 Temperature 98.7 F 98.3 F Pulse Rate 54 L 54 L 54 L Respiratory Rate 20 19 Blood Pressure 138/78 143/75 H Pulse Oximetry 95 95 06/19/18 01:10 06/19/18 02:00 06/19/18 04:00 Temperature 98.8 F Pulse Rate 52 L 54 L Respiratory Rate 13 15 Blood Pressure 122/70 Pulse Oximetry 95 98 06/19/18 04:28 06/19/18 06:00 06/19/18 07:59 Temperature Pulse Rate 54 L Respiratory Rate 13 13 Blood Pressure Pulse Oximetry 100 98 06/19/18 09:04 Temperature Pulse Rate Respiratory Rate Blood Pressure Pulse Oximetry 96 Intake & Output 06/18/18 06/19/18 06/19/18 18:59 06:59 18:59 Intake Total 739 / 739 1002 / 1002 Output Total 2300 / 2300 1800 / 1800 Balance -1561 / -1561 -798 / -798 Weight 80.1 kg Intake: IV 250 / 250 Precedex Inj 1,000 MCG In NS 250 / 250 Inj 240 ML @ 0.2 MCG/KG/HR 4.13 mls/hr IV.CONT TITRATE PRN Rx# :[id number] Tube Feeding 139 / 139 152 / 152 Water Bolus Amount 600 / 600 600 / 600 Output: Urine Amount (Catheter) 1700 / 1700 1800 / 1800 Indwelling Temp Sensing 1700 / 1700 1800 / 1800 Catheter Gastric Drainage 600 / 600 Gastrostomy Tube (PEG) 600 / 600 Other: Date of Last Bowel Movement 06/17/18 06/17/18 # Bowel Movements 0 - Urinary Catheter Management Indwelling Temp Sensing Catheter Cath placed during this visit: no <Brown Su - Last Filed: 06/19/18 11:13> Assessment and Plan - Assessment (1) HUSAM (acute kidney injury) Code(s): N17.9 - Acute kidney failure, unspecified Status: Acute Plan: Normal renal function at baseline HUSAM multifactorial, most likely due to compartment syndrome due to anasarca and increased abdominal pressures Edema improved, off diuretics continue to monitor renal function Wolf remains in place, okay to remove from renal perspective Repeat labs in AM Avoid nephrotoxic agents. (2) Hypernatremia Code(s): E87.0 - Hyperosmolality and hypernatremia Status: Acute Plan: Improved FW with tube feeding continues Off IVF and diuretics. (3) Respiratory failure Code(s): J96.90 - Respiratory failure, unspecified, unspecified whether with hypoxia or hypercapnia Status: Acute Qualifiers: Chronicity: acute Respiratory failure complication: hypoxia and hypercapnia Qualified Code(s): J96.01 - Acute respiratory failure with hypoxia ; J96.02 - Acute respiratory failure with hypercapnia Plan: s/p trach and PEG Off the vent <Gladis Ramos - Last Filed: 06/18/18 14:56> - Assessment (1) HUSAM (acute kidney injury) Code(s): N17.9 - Acute kidney failure, unspecified Status: Acute (2) Hypernatremia Code(s): E87.0 - Hyperosmolality and hypernatremia Status: Acute (3) Respiratory failure Code(s): J96.90 - Respiratory failure, unspecified, unspecified whether with hypoxia or hypercapnia Status: Acute Qualifiers: Chronicity: acute Respiratory failure complication: hypoxia and hypercapnia Qualified Code(s): J96.01 - Acute respiratory failure with hypoxia ; J96.02 - Acute respiratory failure with hypercapnia - Attending Attestation patient was seen and examined. Agree with above assessment and plan. Renal function has improved. Off diuretics. Needs free water. <Brown Su - Last Filed: 06/19/18 11:13>
[2018-06-18] MEDS ORDERED: Potassium Chloride 25 MEQ Effervescent Tablet PO ONE (18:56)
[2018-06-18] MEDS: QUEtiapine 100 MG Tablet PO SCH (21:32)
[2018-06-19] MEDS: Oral Hygiene Kit OROPHARYNG SCH ×5 (00:21→23:34)
--- NOTE | 2018-06-19 01:12 | XR ---
EXAM DATE: 06/19/2018 1:07 AM EDT AGE/SEX: 57 years / Male INDICATIONS: Follow up respiratory status. CLINICAL DATA: This is the patient's subsequent encounter. Patient reports that signs and symptoms h ave been present for 2 weeks and indicates a pain score of Nonresponsive. MEDICAL/SURGICAL HISTORY: None. None. COMPARISON: [facility] – [place], CHEST 1V SINGLE AP, 06/18/2018. . FINDINGS: A single AP view of the chest demonstrates persistent patchy bibasilar airspace disease with possible developing effusions, particularly on the left. Is also some increased interstitial markings when co mpared to the prior suggesting some degree of vascular congestion or volume overload. Heart size is u pper limits of normal. Tracheostomy tube is stable in position. Osseous structures are intact CONCLUSION: 1. Persistent bibasilar airspace disease with possible associated developing effusions. 2. In addition, there is some increased interstitial markings. Combination of findings suggest some developing vascular congestion or volume overload/failure. Electronically signed by: Rich Coleman MD 06/19/2018 1:11 AM EDT
[2018-06-19 04:07] LABS: Baso # (Auto) 0.1 th/mm3 (0.0-0.2); Eos # (Auto) 0.1 th/mm3 (0.0-0.4); Eos % (Auto) 1.5 % (0.0-4.0); Hematocrit 24.7 % (39.0-51.0); Hemoglobin 8.4 gm/dL (13.0-17.0); Lymph # (Auto) 1.4 th/mm3 (1.0-4.8); Lymph % (Auto) 18.9 % (9.0-44.0); Mean Corpuscular Hemoglobin 33.7 pg (27.0-34.0); Mean Corpuscular Volume 98.9 fL (80.0-100.0); Mean Platelet Volume 8.3 fL (7.0-11.0); Mono % (Auto) 13.5 % (0.0-8.0); Neut # (Auto) 4.9 th/mm3 (1.8-7.7); Neut % (Auto) 65.1 % (16.0-70.0); Platelet Count 493 th/mm3 (150-450); White Blood Count 7.6 th/mm3 (4.0-11.0)
[2018-06-19 04:27] LABS: Calcium 8.6 mg/dL (8.5-10.1); Carbon Dioxide 29.1 meq/L (21.0-32.0); Potassium 3.3 meq/L (3.5-5.1)
[2018-06-19] MEDS: Heparin - SQ 10,000 UNITS/ML Vial SQ SCH ×3 (06:14→21:41)
[2018-06-19] MEDS: QUEtiapine 25 MG Tablet PO SCH ×2 (06:14→14:13)
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
[2018-06-19] MEDS ORDERED: Potassium Chloride 25 MEQ Effervescent Tablet PO ONE (09:00)
[2018-06-19] MEDS: Senna/Docusate Sodium 8.6/50 MG Tablet PO SCH ×2 (09:13→20:44)
[2018-06-19] MEDS: Chlorhexidine 0.12% Oral Kit 15 ML UDC OROPHARYNG SCH ×2 (09:13→20:43)
[2018-06-19] MEDS: Pantoprazole Inj 40 MG Vial IV.PUSH SCH (09:14)
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
[2018-06-19 12:37] LABS: % Iron Saturation 20.8 % (20-50)
[2018-06-19] MEDS: Povidone Iodine 10% Top Soln 118 ML Bottle TOPICAL SCH (14:03)
[2018-06-19] MEDS: Dextrose 5% in Water Inj 1,000 ML IV.CONT SCH (14:14)
--- NOTE | 2018-06-19 14:58 | P.PNNP ---
Subjective Interval history: He is awake. at bedside. Renal function is stable. Non oliguric, hypernatremic today. <Gladis Ramos. - Last Filed: 06/19/18 14:50> Physical Exam Vital signs: Vital Signs 06/18/18 16:00 06/18/18 18:00 06/18/18 19:25 Temperature 99 F Pulse Rate 80 84 Respiratory Rate 23 Blood Pressure 143/89 H Pulse Oximetry 92 L 95 06/18/18 20:00 06/18/18 22:00 06/19/18 00:00 Temperature 98.7 F 98.3 F Pulse Rate 54 L 54 L 54 L Respiratory Rate 20 19 Blood Pressure 138/78 143/75 H Pulse Oximetry 95 95 06/19/18 01:10 06/19/18 02:00 06/19/18 04:00 Temperature 98.8 F Pulse Rate 52 L 54 L Respiratory Rate 13 15 Blood Pressure 122/70 Pulse Oximetry 95 98 06/19/18 04:28 06/19/18 06:00 06/19/18 07:59 Temperature Pulse Rate 54 L Respiratory Rate 13 13 Blood Pressure Pulse Oximetry 100 98 06/19/18 09:04 Temperature Pulse Rate Respiratory Rate Blood Pressure Pulse Oximetry 96 Intake & Output 06/18/18 06/19/18 06/19/18 18:59 06:59 18:59 Intake Total 739 / 739 1002 / 1002 Output Total 2300 / 2300 1800 / 1800 Balance -1561 / -1561 -798 / -798 Weight 80.1 kg Intake: IV 250 / 250 Precedex Inj 1,000 MCG In NS 250 / 250 Inj 240 ML @ 0.2 MCG/KG/HR 4.13 mls/hr IV.CONT TITRATE PRN Rx# :[id number] Tube Feeding 139 / 139 152 / 152 Water Bolus Amount 600 / 600 600 / 600 Output: Urine Amount (Catheter) 1700 / 1700 1800 / 1800 Indwelling Temp Sensing 1700 / 1700 1800 / 1800 Catheter Gastric Drainage 600 / 600 Gastrostomy Tube (PEG) 600 / 600 Other: Date of Last Bowel Movement 06/17/18 06/17/18 # Bowel Movements 0 - Constitutional no acute distress Comments: trach with trach collar. Awake, appears acutely ill. Not following commands. - Routine HEENT Exam Head: Present: normocephalic Comments: right cheek with abrasion - Routine Neck Exam Present: supple - Routine Respiratory Exam Present: CTA bilaterally. Absent: accessory muscle use - Routine Cardiovascular Exam Present: RRR, S1, S2. Absent: murmur - Routine Abdominal Exam Present: soft, normoactive bowel sounds - Routine Extremities Exam Present: normal capillary refill. Absent: edema, full ROM - Routine Skin Exam Present: intact, warm - Routine Neurological Exam Present: alert, CN II-XII intact, moving all extremities - Detailed Neurological Exam: Coma Scale Eye Opening: Spontaneous Verbal Response: Oriented - Routine Psychiatric Exam Present: normal affect, unable to assess - Urinary Catheter Management Indwelling Temp Sensing Catheter Cath placed during this visit: yes Reason for continuing: Other continuation reason Insertion date: 06/02/18 Insertion time: 17:55 <Gladis Ramos - Last Filed: 06/19/18 14:50> Vital signs: Vital Signs 06/18/18 22:00 06/19/18 00:00 06/19/18 01:10 Temperature 98.3 F Pulse Rate 54 L 54 L Respiratory Rate 19 13 Blood Pressure 143/75 H Pulse Oximetry 95 95 06/19/18 02:00 06/19/18 04:00 06/19/18 04:28 Temperature 98.8 F Pulse Rate 52 L 54 L Respiratory Rate 15 13 Blood Pressure 122/70 Pulse Oximetry 98 100 06/19/18 06:00 06/19/18 07:59 06/19/18 08:00 Temperature 98.9 F Pulse Rate 54 L 54 L Respiratory Rate 13 15 Blood Pressure 129/74 Pulse Oximetry 98 97 06/19/18 09:04 06/19/18 10:00 06/19/18 12:00 Temperature 99.5 F Pulse Rate 66 66 Respiratory Rate 30 H Blood Pressure 145/80 H Pulse Oximetry 96 96 06/19/18 14:00 06/19/18 15:28 06/19/18 16:00 Temperature 99.5 F Pulse Rate 64 54 L Respiratory Rate 23 18 Blood Pressure 135/83 Pulse Oximetry 96 97 06/19/18 18:00 06/19/18 19:41 Temperature Pulse Rate 76 Respiratory Rate 16 Blood Pressure Pulse Oximetry 98 Intake & Output 06/19/18 06/19/18 06/20/18 06:59 18:59 06:59 Intake Total 1002 / 1002 752 / 752 Output Total 1800 / 1800 Balance -798 / -798 752 / 752 Weight 80.1 kg Intake: IV 250 / 250 Precedex Inj 1,000 MCG In NS 250 / 250 Inj 240 ML @ 0.2 MCG/KG/HR 4.13 mls/hr IV.CONT TITRATE PRN Rx# :[id number] Tube Feeding 152 / 152 152 / 152 Water Bolus Amount 600 / 600 600 / 600 Output: Urine Amount (Catheter) 1800 / 1800 Indwelling Temp Sensing 1800 / 1800 Catheter Other: Date of Last Bowel Movement 06/17/18 06/17/18 - Urinary Catheter Management Indwelling Temp Sensing Catheter Cath placed during this visit: no <Brown Su - Last Filed: 06/19/18 20:40> Assessment and Plan - Assessment (1) HUSAM (acute kidney injury) Code(s): N17.9 - Acute kidney failure, unspecified Status: Acute Plan: Normal renal function at baseline HUSAM multifactorial, most likely due to compartment syndrome due to anasarca and increased abdominal pressures Edema improved, off diuretics Stable renal function Non oliguric Wolf remains in place, okay to remove from renal perspective Repeat labs in AM Avoid nephrotoxic agents. (2) Hypernatremia Code(s): E87.0 - Hyperosmolality and hypernatremia Status: Acute Plan: Worse FW with tube feeding continues Start D5W @ 50 cc/hr (3) Respiratory failure Code(s): J96.90 - Respiratory failure, unspecified, unspecified whether with hypoxia or hypercapnia Status: Acute Qualifiers: Chronicity: acute Respiratory failure complication: hypoxia and hypercapnia Qualified Code(s): J96.01 - Acute respiratory failure with hypoxia ; J96.02 - Acute respiratory failure with hypercapnia Plan: s/p trach and PEG Off the vent <Gladis Ramos - Last Filed: 06/19/18 14:50> - Assessment (1) HUSAM (acute kidney injury) Code(s): N17.9 - Acute kidney failure, unspecified Status: Acute (2) Hypernatremia Code(s): E87.0 - Hyperosmolality and hypernatremia Status: Acute (3) Respiratory failure Code(s): J96.90 - Respiratory failure, unspecified, unspecified whether with hypoxia or hypercapnia Status: Acute Qualifiers: Chronicity: acute Respiratory failure complication: hypoxia and hypercapnia Qualified Code(s): J96.01 - Acute respiratory failure with hypoxia ; J96.02 - Acute respiratory failure with hypercapnia - Attending Attestation patient was seen and examined. Agree with above assessment and plan. <Brown Su - Last Filed: 06/19/18 20:40>
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
--- NOTE | 2018-06-19 16:49 | P.PNNS ---
Subjective Interval history: 06/19: doing well, awake, follows commands Physical Exam Vital signs: Vital Signs 06/18/18 18:00 06/18/18 19:25 06/18/18 20:00 Temperature 98.7 F Pulse Rate 84 54 L Respiratory Rate 20 Blood Pressure 138/78 Pulse Oximetry 95 95 06/18/18 22:00 06/19/18 00:00 06/19/18 01:10 Temperature 98.3 F Pulse Rate 54 L 54 L Respiratory Rate 19 13 Blood Pressure 143/75 H Pulse Oximetry 95 95 06/19/18 02:00 06/19/18 04:00 06/19/18 04:28 Temperature 98.8 F Pulse Rate 52 L 54 L Respiratory Rate 15 13 Blood Pressure 122/70 Pulse Oximetry 98 100 06/19/18 06:00 06/19/18 07:59 06/19/18 09:04 Temperature Pulse Rate 54 L Respiratory Rate 13 Blood Pressure Pulse Oximetry 98 96 06/19/18 15:28 Temperature Pulse Rate Respiratory Rate 23 Blood Pressure Pulse Oximetry 96 Intake & Output 06/18/18 06/19/18 06/19/18 18:59 06:59 18:59 Intake Total 739 / 739 1002 / 1002 Output Total 2300 / 2300 1800 / 1800 Balance -1561 / -1561 -798 / -798 Weight 80.1 kg Intake: IV 250 / 250 Precedex Inj 1,000 MCG In NS 250 / 250 Inj 240 ML @ 0.2 MCG/KG/HR 4.13 mls/hr IV.CONT TITRATE PRN Rx# :[id number] Tube Feeding 139 / 139 152 / 152 Water Bolus Amount 600 / 600 600 / 600 Output: Urine Amount (Catheter) 1700 / 1700 1800 / 1800 Indwelling Temp Sensing 1700 / 1700 1800 / 1800 Catheter Gastric Drainage 600 / 600 Gastrostomy Tube (PEG) 600 / 600 Other: Date of Last Bowel Movement 06/17/18 06/17/18 # Bowel Movements 0 Narrative: awake, smiles eyes open, focus and tracks followed simple commands pupils equal moves all four extremities tracheostomy - Urinary Catheter Management Indwelling Temp Sensing Catheter Cath placed during this visit: yes Reason for continuing: Other continuation reason Insertion date: 06/02/18 Insertion time: 17:55 Assessment and Plan - Assessment (1) CHI (closed head injury) Code(s): S09.90XA - Unspecified injury of head, initial encounter Status: Acute Qualifiers: Encounter type: initial encounter Qualified Code(s): S09.90XA - Unspecified injury of head, initial encounter - Plan stable neurological exam, cont neuro checks cont therapy and rehab
[2018-06-19] MEDS: QUEtiapine 100 MG Tablet PO SCH (20:44)
[2018-06-20] MEDS: Oral Hygiene Kit OROPHARYNG SCH ×3 (03:57→16:53)
[2018-06-20] MEDS: QUEtiapine 25 MG Tablet PO SCH ×2 (06:01→16:52)
[2018-06-20] MEDS: Heparin - SQ 10,000 UNITS/ML Vial SQ SCH ×3 (06:01→21:54)
[2018-06-20] MEDS: Dextrose 5% in Water Inj 1,000 ML IV.CONT SCH (08:41)
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
[2018-06-20] MEDS: Povidone Iodine 10% Top Soln 118 ML Bottle TOPICAL SCH (08:53)
[2018-06-20] MEDS: Chlorhexidine 0.12% Oral Kit 15 ML UDC OROPHARYNG SCH ×2 (08:53→21:52)
[2018-06-20] MEDS: Senna/Docusate Sodium 8.6/50 MG Tablet PO SCH ×2 (08:53→21:53)
[2018-06-20] MEDS: Pantoprazole Inj 40 MG Vial IV.PUSH SCH (08:54)
[2018-06-20] MEDS: Dexmedetomidine Inj 1,000 MCG in Sodium Chlor 0.9% Inj 240 ML IV.CONT PRN (08:54)
[2018-06-20] MEDS ORDERED: Iron Sucrose Inj 200 MG in Sodium Chlor 0.9% Inj 100 ML IV.SIG SCH (10:00)
--- NOTE | 2018-06-20 12:56 | P.PNNP ---
Subjective Interval history: Awake, not on any sedation. Still not following commands. Stable renal function. <Gladis Ramos - Last Filed: 06/20/18 13:15> Physical Exam Vital signs: Vital Signs 06/19/18 14:00 06/19/18 15:28 06/19/18 16:00 Temperature 99.5 F Pulse Rate 64 54 L Respiratory Rate 23 18 Blood Pressure 135/83 Pulse Oximetry 96 97 06/19/18 18:00 06/19/18 19:41 06/19/18 20:00 Temperature 99.5 F Pulse Rate 76 58 L Respiratory Rate 16 11 L Blood Pressure 146/89 H Pulse Oximetry 98 99 06/19/18 22:00 06/19/18 23:19 06/20/18 00:00 Temperature 98.5 F Pulse Rate 64 84 Respiratory Rate 15 13 Blood Pressure 133/98 H Pulse Oximetry 100 100 06/20/18 02:00 06/20/18 03:25 06/20/18 04:00 Temperature 99.3 F Pulse Rate 68 58 L Respiratory Rate 18 12 Blood Pressure 153/79 H Pulse Oximetry 100 100 06/20/18 06:00 06/20/18 07:42 06/20/18 08:00 Temperature 99.0 F Pulse Rate 58 L 53 L Respiratory Rate 13 Blood Pressure 155/87 H Pulse Oximetry 100 100 06/20/18 10:00 06/20/18 10:10 06/20/18 12:00 Temperature 99.4 F Pulse Rate 89 73 Respiratory Rate 28 H Blood Pressure 138/87 Pulse Oximetry 100 99 Intake & Output 06/19/18 06/20/18 06/20/18 18:59 06:59 18:59 Intake Total 1002 / 1002 504 / 504 Balance 1002 / 1002 504 / 504 Weight 73.4 kg Intake: IV 250 / 250 Precedex Inj 1,000 MCG In NS 250 / 250 Inj 240 ML @ 0.2 MCG/KG/HR 4.13 mls/hr IV.CONT TITRATE PRN Rx# :[id number] Tube Feeding 152 / 152 104 / 104 Water Bolus Amount 600 / 600 400 / 400 Other: # Voids 3 Date of Last Bowel Movement 06/17/18 06/19/18 06/19/18 # Bowel Movements 1 - Constitutional no acute distress, disheveled Comments: appears acutely ill - Routine HEENT Exam Head: Present: normocephalic, abrasion - Routine Neck Exam Present: supple Comments: tracheostomy - Routine Respiratory Exam Present: CTA bilaterally. Absent: accessory muscle use - Routine Cardiovascular Exam Present: RRR, S1, S2 - Routine Abdominal Exam Present: soft, normoactive bowel sounds Comments: PEG - Routine Extremities Exam Present: pulses intact, normal capillary refill. Absent: edema - Routine Skin Exam Present: dry, warm - Routine Neurological Exam Present: alert, altered mental status, normal tone - Detailed Neurological Exam: Coma Scale Eye Opening: Spontaneous Verbal Response: Sounds Motor Response: Localizing Moi Coma Scale Total: 11 - Routine Psychiatric Exam Present: unable to assess - Urinary Catheter Management Indwelling Temp Sensing Catheter Cath placed during this visit: yes, but has since been removed by the nurse Reason for continuing: Decision to DC catheter Insertion date: 06/02/18 Insertion time: 17:55 Removal date: 06/19/18 Removal time: 17:30 <Gladis Ramos - Last Filed: 06/20/18 13:15> Vital signs: Vital Signs 06/19/18 20:00 06/19/18 22:00 06/19/18 23:19 Temperature 99.5 F Pulse Rate 58 L 64 Respiratory Rate 11 L 15 Blood Pressure 146/89 H Pulse Oximetry 99 100 06/20/18 00:00 06/20/18 02:00 06/20/18 03:25 Temperature 98.5 F Pulse Rate 84 68 Respiratory Rate 13 18 Blood Pressure 133/98 H Pulse Oximetry 100 100 06/20/18 04:00 06/20/18 06:00 06/20/18 07:42 Temperature 99.3 F Pulse Rate 58 L 58 L Respiratory Rate 12 Blood Pressure 153/79 H Pulse Oximetry 100 100 06/20/18 08:00 06/20/18 10:00 06/20/18 10:10 Temperature 99.0 F Pulse Rate 53 L 89 Respiratory Rate 13 Blood Pressure 155/87 H Pulse Oximetry 100 100 06/20/18 12:00 Temperature 99.4 F Pulse Rate 73 Respiratory Rate 28 H Blood Pressure 138/87 Pulse Oximetry 99 Intake & Output 06/20/18 06/20/18 06/21/18 06:59 18:59 06:59 Intake Total 504 / 504 Balance 504 / 504 Weight 73.4 kg Intake: Tube Feeding 104 / 104 Water Bolus Amount 400 / 400 Other: # Voids 3 Date of Last Bowel Movement 06/19/18 06/19/18 # Bowel Movements 1 - Urinary Catheter Management Indwelling Temp Sensing Catheter Cath placed during this visit: no <Brown Su - Last Filed: 06/20/18 19:52> Assessment and Plan - Assessment (1) HUSAM (acute kidney injury) Code(s): N17.9 - Acute kidney failure, unspecified Status: Acute Plan: Normal renal function at baseline HUSAM multifactorial, most likely due to compartment syndrome secondary to anasarca and increased abdominal pressures Edema improved, now off diuretics Renal function is stable. Currently non oliguric, the Wolf was removed K was replaced Repeat labs in AM Avoid nephrotoxic agents. (2) Hypernatremia Code(s): E87.0 - Hyperosmolality and hypernatremia Status: Acute Plan: No change in sodium level Increase FW with tube feeding and rate of hypotonic fluids to 75 cc/hr Repeat labs in AM (3) Respiratory failure Code(s): J96.90 - Respiratory failure, unspecified, unspecified whether with hypoxia or hypercapnia Status: Acute Qualifiers: Chronicity: acute Respiratory failure complication: hypoxia and hypercapnia Qualified Code(s): J96.01 - Acute respiratory failure with hypoxia ; J96.02 - Acute respiratory failure with hypercapnia Plan: s/p trach and PEG Off the vent Continue supportive care. <Gladis Ramos - Last Filed: 06/20/18 13:15> - Assessment (1) HUSAM (acute kidney injury) Code(s): N17.9 - Acute kidney failure, unspecified Status: Acute (2) Hypernatremia Code(s): E87.0 - Hyperosmolality and hypernatremia Status: Acute (3) Respiratory failure Code(s): J96.90 - Respiratory failure, unspecified, unspecified whether with hypoxia or hypercapnia Status: Acute Qualifiers: Chronicity: acute Respiratory failure complication: hypoxia and hypercapnia Qualified Code(s): J96.01 - Acute respiratory failure with hypoxia ; J96.02 - Acute respiratory failure with hypercapnia - Attending Attestation patient was seen and examined. Agree with above assessment and plan. <Brown Su - Last Filed: 06/20/18 19:52>
[2018-06-20 13:07] LABS: Carbon Dioxide 29.5 meq/L (21.0-32.0); Potassium 3.5 meq/L (3.5-5.1)
[2018-06-20 13:08] LABS: Albumin 2.8 g/dL (3.4-5.0); Calcium 8.9 mg/dL (8.5-10.1); Phosphorus 3.2 mg/dL (2.5-4.9)
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
--- NOTE | 2018-06-20 16:12 | P.PNNS ---
Subjective Interval history: 06/20: awake, waves hello. Physical Exam Vital signs: Vital Signs 06/19/18 18:00 06/19/18 19:41 06/19/18 20:00 Temperature 99.5 F Pulse Rate 76 58 L Respiratory Rate 16 11 L Blood Pressure 146/89 H Pulse Oximetry 98 99 06/19/18 22:00 06/19/18 23:19 06/20/18 00:00 Temperature 98.5 F Pulse Rate 64 84 Respiratory Rate 15 13 Blood Pressure 133/98 H Pulse Oximetry 100 100 06/20/18 02:00 06/20/18 03:25 06/20/18 04:00 Temperature 99.3 F Pulse Rate 68 58 L Respiratory Rate 18 12 Blood Pressure 153/79 H Pulse Oximetry 100 100 06/20/18 06:00 06/20/18 07:42 06/20/18 08:00 Temperature 99.0 F Pulse Rate 58 L 53 L Respiratory Rate 13 Blood Pressure 155/87 H Pulse Oximetry 100 100 06/20/18 10:00 06/20/18 10:10 06/20/18 12:00 Temperature 99.4 F Pulse Rate 89 73 Respiratory Rate 28 H Blood Pressure 138/87 Pulse Oximetry 100 99 Intake & Output 06/19/18 06/20/18 06/20/18 18:59 06:59 18:59 Intake Total 1002 / 1002 504 / 504 Balance 1002 / 1002 504 / 504 Weight 73.4 kg Intake: IV 250 / 250 Precedex Inj 1,000 MCG In NS 250 / 250 Inj 240 ML @ 0.2 MCG/KG/HR 4.13 mls/hr IV.CONT TITRATE PRN Rx# :[id number] Tube Feeding 152 / 152 104 / 104 Water Bolus Amount 600 / 600 400 / 400 Other: # Voids 3 Date of Last Bowel Movement 06/17/18 06/19/18 06/19/18 # Bowel Movements 1 Narrative: awake, smiles eyes open, focus and tracks followed simple commands pupils equal moves all four extremities tracheostomy - Urinary Catheter Management Indwelling Temp Sensing Catheter Cath placed during this visit: yes, but has since been removed by the nurse Reason for continuing: Decision to DC catheter Insertion date: 06/02/18 Insertion time: 17:55 Removal date: 06/19/18 Removal time: 17:30 Assessment and Plan - Assessment (1) CHI (closed head injury) Code(s): S09.90XA - Unspecified injury of head, initial encounter Status: Acute Qualifiers: Encounter type: initial encounter Qualified Code(s): S09.90XA - Unspecified injury of head, initial encounter - Plan stable neurological exam, cont neuro checks cont CPAP and vent weaning cont therapy and rehab
[2018-06-20] MEDS: Iron Sucrose Inj 100 MG in Sodium Chlor 0.9% Inj 100 ML IV.SIG SCH (16:32)
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
[2018-06-20] MEDS: QUEtiapine 100 MG Tablet PO SCH (21:53)
[2018-06-21] MEDS: Oral Hygiene Kit OROPHARYNG SCH ×4 (00:06→16:04)
[2018-06-21] MEDS: Dextrose 5% in Water Inj 1,000 ML IV.CONT SCH ×2 (03:42→18:33)
[2018-06-21 04:40] LABS: Baso # (Auto) 0.1 th/mm3 (0.0-0.2); Baso % (Auto) 1.3 % (0.0-2.0); Eos # (Auto) 0.2 th/mm3 (0.0-0.4); Eos % (Auto) 2.2 % (0.0-4.0); Hemoglobin 9.5 gm/dL (13.0-17.0); Lymph # (Auto) 1.9 th/mm3 (1.0-4.8); Lymph % (Auto) 21.8 % (9.0-44.0); Mean Corpuscular Hemoglobin 33.5 pg (27.0-34.0); Mean Corpuscular Volume 98.6 fL (80.0-100.0); Mean Platelet Volume 8.4 fL (7.0-11.0); Mono % (Auto) 11.1 % (0.0-8.0); Neut # (Auto) 5.5 th/mm3 (1.8-7.7); Neut % (Auto) 63.6 % (16.0-70.0); Platelet Count 581 th/mm3 (150-450); Red Blood Count 2.84 mil/mm3 (4.50-5.90); Red Cell Distribution Width 13.4 % (11.6-17.2); White Blood Count 8.6 th/mm3 (4.0-11.0)
[2018-06-21 05:01] LABS: Calcium 8.6 mg/dL (8.5-10.1); Carbon Dioxide 28.1 meq/L (21.0-32.0); Potassium 3.4 meq/L (3.5-5.1)
[2018-06-21] MEDS: Heparin - SQ 10,000 UNITS/ML Vial SQ SCH ×3 (05:39→22:09)
[2018-06-21] MEDS: QUEtiapine 25 MG Tablet PO SCH ×2 (06:01→14:16)
--- NOTE | 2018-06-21 08:10 | P.PNNPSY ---
- Behavior Mild: Impulsive/agitated - Cognitive Severe: Cognitive, Attention/concentration, Confused/orientation, Insight/ awareness, Judgment/problem solving, Memory - Psychosocial Mild: Psychosocial, Family/other adjustment, Realistic expectation, Severe: Self -esteem/confidence - Progress Notes/Response to Treatment Contents of Sessions: Adjustment, Level of consciousness Time with Patient: 30 minutes Premorbid Psychological Status: Premorbid Cognitive, Emotional and Behavioral Status: Deferred. The patient has high school years of education and a solid work history prior to this injury. The patient's prior psychiatric difficulties, if any, are unknown. Substance abuse history is unknown. Behavioral Reactions of Patient and Family/Support System: Deferred. The patients family is experiencing ongoing issues of adjustment given the nature of the injury, and this aspect of recovery will require ongoing monitoring. Emotional/Behavioral Status of Patient and Family/Support System: Deferred. Pertinent issues, if appropriate to this patients clinical care, are described in detail above. Maximizing Acute Care Outcome: It is recommended that the patient be monitored for emergent behavioral impulsivity as the medical condition evolves. This patients neuropathological challenges may limit rehabilitation potential going forward, and these challenges will require specialized therapeutic skills to maximize outcome. Additionally, the patients family is experiencing ongoing issues of adjustment given the traumatic nature of the injury, and they may benefit from ongoing psychological assistance. At this point in the recovery process, the patient does not have cognitive capacity as the patient is unable to understand a situation and its likely consequences, nor is the patient able to manipulate information rationally. Cognitive capacity will be assessed throughout the recovery process. Anticipated Problems: Ongoing areas of concern will include behavioral impulsivity, lack of insight and judgment, which is expected to improve with time and treatment. Presently , the patient is critically ill. Given the severity of the patient's injuries it is my clinical opinion that this patient will be unable to return to any type of productive employment for at least one year, perhaps longer and likely never. This patient is not considered safe to discharge home without supervision. Treatment Plan: This clinician will continue to follow with you throughout the course of this patients critical care treatment, and I will be available to meet with the patients family/support system to facilitate their understanding and the ongoing care of their family member. The goals of neuropsychological intervention shall be both educational and supportive to the family/support system as is deemed clinically appropriate. [place] COG Scale: Level IV Disinhibition Score: 28.00 Aggression Score: 17.50 Lability Score: 14.00 Agitated Behavior Total Score: 22 Impression: 57 year old male s/p TBI 2T [facility] [place] on 06/02/2018. Progress Note Narrative: PTD 19. The patient continues to improve neurobehaviorally. His agitation/ restlessness is at the borderline of mild, with ABS of 22 (28,17.5,14). Precedex is being weaned. He remains on Zyprexa 5 BID, Seroquel 50/50/100 and VPA 500 TID. He remains Rancho IV. I will follow. - Diagnosis (1) Major neurocognitive disorder as late effect of traumatic brain injury with behavioral disturbance Status: Acute
[2018-06-21] MEDS: Povidone Iodine 10% Top Soln 118 ML Bottle TOPICAL SCH (08:38)
[2018-06-21] MEDS: Chlorhexidine 0.12% Oral Kit 15 ML UDC OROPHARYNG SCH ×2 (08:38→22:00)
[2018-06-21] MEDS: Senna/Docusate Sodium 8.6/50 MG Tablet PO SCH ×2 (08:40→22:01)
[2018-06-21] MEDS: Pantoprazole Inj 40 MG Vial IV.PUSH SCH (08:40)
[2018-06-21] MEDS: Iron Sucrose Inj 100 MG in Sodium Chlor 0.9% Inj 100 ML IV.SIG SCH (08:40)
--- NOTE | 2018-06-21 09:38 | P.PNNS ---
Subjective Interval history: 06/21: reportedly fell yesterday and underwent f/u CT Brain. currently awake, alert, following commands, on t-piece. Physical Exam Vital signs: Vital Signs 06/20/18 10:00 06/20/18 10:10 06/20/18 12:00 Temperature 99.4 F Pulse Rate 89 73 Respiratory Rate 28 H Blood Pressure 138/87 Pulse Oximetry 100 99 06/20/18 14:00 06/20/18 16:00 06/20/18 18:00 Temperature 100.2 F H Pulse Rate 82 82 82 Respiratory Rate 32 H Blood Pressure 148/86 H Pulse Oximetry 92 L 06/20/18 19:23 06/20/18 20:00 06/20/18 21:13 Temperature 98.6 F 98.6 F Pulse Rate 56 L 56 L Respiratory Rate 13 13 Blood Pressure 122/67 122/67 Pulse Oximetry 93 L 93 L 92 L 06/20/18 22:00 06/20/18 23:23 06/21/18 00:00 Temperature 98.1 F 98.1 F Pulse Rate 49 L 50 L 50 L Respiratory Rate 24 24 Blood Pressure 114/67 114/67 Pulse Oximetry 93 L 92 L 06/21/18 02:00 06/21/18 03:23 06/21/18 04:00 Temperature 98.4 F Pulse Rate 72 65 78 Respiratory Rate 26 H 24 Blood Pressure 154/99 H 138/56 L Pulse Oximetry 93 L 95 06/21/18 06:00 06/21/18 07:23 06/21/18 07:46 Temperature 99.1 F Pulse Rate 70 71 Respiratory Rate 28 H Blood Pressure 136/87 Pulse Oximetry 93 L 97 Intake & Output 06/20/18 06/21/18 06/21/18 18:59 06:59 18:59 Intake Total 1634 / 1634 1052 / 1052 Output Total 800 / 800 Balance 834 / 834 1052 / 1052 Weight 69.8 kg Intake: IV 1105 / 1105 D5W Inj 1,000 ML @ 75 mls/hr IV 1000 / 1000 .CONT .[id number] [facility] Rx#:[id number] Venofer Inj 100 MG In NS Inj 105 / 105 100 ML @ 110 mls/hr IV.SIG DAILY [facility] Rx#:[id number] Tube Feeding 109 / 109 152 / 152 Tube Irrigant 120 / 120 Water Bolus Amount 300 / 300 900 / 900 Output: Urine 800 / 800 Other: # Incontinent Voids 1 3 # Urine Diapers 3 Date of Last Bowel Movement 06/19/18 06/20/18 # Bowel Movements 2 0 - Urinary Catheter Management Indwelling Temp Sensing Catheter Cath placed during this visit: yes, but has since been removed by the nurse Reason for continuing: Not indwelling catheter Insertion date: 06/02/18 Insertion time: 17:55 Removal date: 06/19/18 Removal time: 17:30 Assessment and Plan - Assessment (1) CHI (closed head injury) Code(s): S09.90XA - Unspecified injury of head, initial encounter Status: Acute Qualifiers: Encounter type: initial encounter Qualified Code(s): S09.90XA - Unspecified injury of head, initial encounter - Plan stable neurological exam, cont neuro checks cont CPAP and vent weaning cont therapy and rehab
--- NOTE | 2018-06-21 12:28 | P.PNNP ---
Subjective Interval history: Renal function is better. Sodium is also better. <Gladis Ramos - Last Filed: 06/21/18 12:24> Physical Exam Vital signs: Vital Signs 06/20/18 14:00 06/20/18 16:00 06/20/18 18:00 Temperature 100.2 F H Pulse Rate 82 82 82 Respiratory Rate 32 H Blood Pressure 148/86 H Pulse Oximetry 92 L 06/20/18 19:23 06/20/18 20:00 06/20/18 21:13 Temperature 98.6 F 98.6 F Pulse Rate 56 L 56 L Respiratory Rate 13 13 Blood Pressure 122/67 122/67 Pulse Oximetry 93 L 93 L 92 L 06/20/18 22:00 06/20/18 23:23 06/21/18 00:00 Temperature 98.1 F 98.1 F Pulse Rate 49 L 50 L 50 L Respiratory Rate 24 24 Blood Pressure 114/67 114/67 Pulse Oximetry 93 L 92 L 06/21/18 02:00 06/21/18 03:23 06/21/18 04:00 Temperature 98.4 F Pulse Rate 72 65 78 Respiratory Rate 26 H 24 Blood Pressure 154/99 H 138/56 L Pulse Oximetry 93 L 95 06/21/18 06:00 06/21/18 07:23 06/21/18 07:46 Temperature 99.1 F Pulse Rate 70 71 Respiratory Rate 28 H Blood Pressure 136/87 Pulse Oximetry 93 L 97 06/21/18 08:00 06/21/18 10:00 06/21/18 12:00 Temperature 99.1 F 99.1 F Pulse Rate 71 73 77 Respiratory Rate 28 H 21 Blood Pressure 136/87 123/90 Pulse Oximetry 96 99 Intake & Output 06/20/18 06/21/18 06/21/18 18:59 06:59 18:59 Intake Total 1634 / 1634 1052 / 1052 Output Total 800 / 800 Balance 834 / 834 1052 / 1052 Weight 69.8 kg Intake: IV 1105 / 1105 D5W Inj 1,000 ML @ 75 mls/hr IV 1000 / 1000 .CONT .[id number] [facility] Rx#:[id number] Venofer Inj 100 MG In NS Inj 105 / 105 100 ML @ 110 mls/hr IV.SIG DAILY [facility] Rx#:[id number] Tube Feeding 109 / 109 152 / 152 Tube Irrigant 120 / 120 Water Bolus Amount 300 / 300 900 / 900 Output: Urine 800 / 800 Other: # Incontinent Voids 1 3 # Urine Diapers 3 Date of Last Bowel Movement 06/19/18 06/20/18 06/20/18 # Bowel Movements 2 0 - Constitutional no acute distress, cooperative - Routine HEENT Exam Head: Present: normocephalic ENT: Present: mucous membranes moist - Routine Neck Exam Present: supple, full ROM - Routine Respiratory Exam Present: CTA bilaterally. Absent: accessory muscle use - Routine Cardiovascular Exam Present: RRR, S1, S2 - Routine Abdominal Exam Present: soft, normoactive bowel sounds Comments: PEG - Routine Extremities Exam Present: full ROM, pulses intact. Absent: edema - Routine Skin Exam Present: intact, dry, warm - Routine Neurological Exam Present: alert, oriented X3, CN II-XII intact - Detailed Neurological Exam: Coma Scale Eye Opening: Spontaneous Verbal Response: Confused Motor Response: Obey commands [place] Coma Scale Total: 14 - Routine Psychiatric Exam Present: unable to assess - Urinary Catheter Management Indwelling Temp Sensing Catheter Cath placed during this visit: yes, but has since been removed by the nurse Reason for continuing: Not indwelling catheter Insertion date: 06/02/18 Insertion time: 17:55 Removal date: 06/19/18 Removal time: 17:30 <Gladis Ramos - Last Filed: 06/21/18 12:24> Vital signs: Vital Signs 06/20/18 16:00 06/20/18 18:00 06/20/18 19:23 Temperature 100.2 F H 98.6 F Pulse Rate 82 82 56 L Respiratory Rate 32 H 13 Blood Pressure 148/86 H 122/67 Pulse Oximetry 92 L 93 L 06/20/18 20:00 06/20/18 21:13 06/20/18 22:00 Temperature 98.6 F Pulse Rate 56 L 49 L Respiratory Rate 13 Blood Pressure 122/67 Pulse Oximetry 93 L 92 L 06/20/18 23:23 06/21/18 00:00 06/21/18 02:00 Temperature 98.1 F 98.1 F Pulse Rate 50 L 50 L 72 Respiratory Rate 24 24 Blood Pressure 114/67 114/67 Pulse Oximetry 93 L 92 L 06/21/18 03:23 06/21/18 04:00 06/21/18 06:00 Temperature 98.4 F Pulse Rate 65 78 70 Respiratory Rate 26 H 24 Blood Pressure 154/99 H 138/56 L Pulse Oximetry 93 L 95 06/21/18 07:23 06/21/18 07:46 06/21/18 08:00 Temperature 99.1 F 99.1 F Pulse Rate 71 71 Respiratory Rate 28 H 28 H Blood Pressure 136/87 136/87 Pulse Oximetry 93 L 97 96 06/21/18 10:00 06/21/18 12:00 06/21/18 14:00 Temperature 99.1 F Pulse Rate 73 77 97 H Respiratory Rate 21 Blood Pressure 123/90 Pulse Oximetry 99 Intake & Output 06/20/18 06/21/18 06/21/18 18:59 06:59 18:59 Intake Total 1634 / 1634 1052 / 1052 Output Total 800 / 800 Balance 834 / 834 1052 / 1052 Weight 69.8 kg Intake: IV 1105 / 1105 D5W Inj 1,000 ML @ 75 mls/hr IV 1000 / 1000 .CONT .[id number] [facility] Rx#:[id number] Venofer Inj 100 MG In NS Inj 105 / 105 100 ML @ 110 mls/hr IV.SIG DAILY [facility] Rx#:[id number] Tube Feeding 109 / 109 152 / 152 Tube Irrigant 120 / 120 Water Bolus Amount 300 / 300 900 / 900 Output: Urine 800 / 800 Other: # Incontinent Voids 1 3 # Urine Diapers 3 Date of Last Bowel Movement 06/19/18 06/20/18 06/20/18 # Bowel Movements 2 0 - Urinary Catheter Management Indwelling Temp Sensing Catheter Cath placed during this visit: no <Brown Su - Last Filed: 06/21/18 14:47> Assessment and Plan - Assessment (1) HUSAM (acute kidney injury) Code(s): N17.9 - Acute kidney failure, unspecified Status: Acute Plan: Normal renal function at baseline HUSAM multifactorial, renal function is improving. Edema improved, off diuretics Currently non oliguric without a Wolf Repeat labs in AM Avoid nephrotoxic agents. (2) Hypernatremia Code(s): E87.0 - Hyperosmolality and hypernatremia Status: Acute Plan: Improved On FW with tube feeding and hypotonic fluids Repeat labs in AM (3) Respiratory failure Code(s): J96.90 - Respiratory failure, unspecified, unspecified whether with hypoxia or hypercapnia Status: Acute Qualifiers: Chronicity: acute Respiratory failure complication: hypoxia and hypercapnia Qualified Code(s): J96.01 - Acute respiratory failure with hypoxia ; J96.02 - Acute respiratory failure with hypercapnia Plan: s/p trach and PEG Off the vent Continue supportive care. <Gladis Ramos - Last Filed: 06/21/18 12:24> - Assessment (1) HUSAM (acute kidney injury) Code(s): N17.9 - Acute kidney failure, unspecified Status: Acute (2) Hypernatremia Code(s): E87.0 - Hyperosmolality and hypernatremia Status: Acute (3) Respiratory failure Code(s): J96.90 - Respiratory failure, unspecified, unspecified whether with hypoxia or hypercapnia Status: Acute Qualifiers: Chronicity: acute Respiratory failure complication: hypoxia and hypercapnia Qualified Code(s): J96.01 - Acute respiratory failure with hypoxia ; J96.02 - Acute respiratory failure with hypercapnia - Attending Attestation patient was seen and examined. Agree with above assessment and plan. We will sign off at this time. <Brown Su - Last Filed: 06/21/18 14:47>
[2018-06-21] MEDS ORDERED: Potassium Chloride 25 MEQ Effervescent Tablet PO ONE (12:50)
[2018-06-21] MEDS: Hyoscyamine Liq Drops 0.125 MG/ML 15 ML Bottle SL PRN (16:39)
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
[2018-06-21] MEDS: QUEtiapine 100 MG Tablet PO SCH (22:11)
[2018-06-22] MEDS: Oral Hygiene Kit OROPHARYNG SCH ×4 (03:49→16:48)
[2018-06-22] MEDS: QUEtiapine 25 MG Tablet PO SCH ×2 (06:11→13:09)
[2018-06-22] MEDS: Heparin - SQ 10,000 UNITS/ML Vial SQ SCH ×3 (06:11→21:20)
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
[2018-06-22] MEDS: Chlorhexidine 0.12% Oral Kit 15 ML UDC OROPHARYNG SCH ×2 (08:57→20:45)
[2018-06-22] MEDS: Iron Sucrose Inj 100 MG in Sodium Chlor 0.9% Inj 100 ML IV.SIG SCH (08:58)
[2018-06-22] MEDS: Hyoscyamine Liq Drops 0.125 MG/ML 15 ML Bottle SL PRN (08:59)
[2018-06-22] MEDS: Povidone Iodine 10% Top Soln 118 ML Bottle TOPICAL SCH (08:59)
[2018-06-22] MEDS: Pantoprazole Inj 40 MG Vial IV.PUSH SCH (09:00)
[2018-06-22] MEDS: Senna/Docusate Sodium 8.6/50 MG Tablet PO SCH ×2 (09:00→20:45)
[2018-06-22] MEDS: Dextrose 5% in Water Inj 1,000 ML IV.CONT SCH ×2 (09:43→17:31)
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
--- NOTE | 2018-06-22 16:00 | P.PNNS ---
Subjective Interval history: 06/22: awake, on t-piece, waves hello, follows commands <Josephine Pena - Last Filed: 06/23/18 12:16> Physical Exam Vital signs: Vital Signs 06/21/18 18:00 06/21/18 19:23 06/21/18 19:33 Temperature 99.4 F Pulse Rate 93 H 88 Respiratory Rate 26 H Blood Pressure 143/85 H Pulse Oximetry 97 96 06/21/18 20:00 06/21/18 22:00 06/22/18 00:00 Temperature 99.4 F 99.5 F Pulse Rate 88 82 91 H Respiratory Rate 18 24 Blood Pressure 143/85 H 163/83 H Pulse Oximetry 97 98 06/22/18 02:00 06/22/18 04:00 06/22/18 06:00 Temperature 99.4 F Pulse Rate 108 H 91 H 112 H Respiratory Rate Blood Pressure 157/84 H Pulse Oximetry 98 06/22/18 08:00 06/22/18 08:46 06/22/18 10:00 Temperature 98.2 F Pulse Rate 74 74 Respiratory Rate Blood Pressure 171/90 H Pulse Oximetry 98 96 06/22/18 12:00 06/22/18 14:00 Temperature 98.5 F Pulse Rate 79 97 H Respiratory Rate Blood Pressure 141/85 H Pulse Oximetry 96 Intake & Output 06/21/18 06/22/18 06/22/18 18:59 06:59 18:59 Intake Total 1805 / 1805 1102 / 1102 320 / 320 Output Total 1800 / 1800 1999 Balance 5 / 5 -898 / -898 320 / 320 Weight 72.6 kg Intake: IV 785 / 785 320 / 320 D5W Inj 1,000 ML @ 40 mls/hr IV 680 / 680 320 / 320 .CONT .Q24H [facility] Rx#:[id number] Venofer Inj 100 MG In NS Inj 105 / 105 100 ML @ 110 mls/hr IV.SIG DAILY [facility] Rx#:[id number] Tube Feeding 340 / 340 502 / 502 Tube Irrigant 80 / 80 Water Bolus Amount 600 / 600 600 / 600 Output: Urine 1800 / 1800 1999 Other: # Incontinent Voids 1 Date of Last Bowel Movement 06/21/18 06/21/18 06/21/18 # Bowel Movements 1 1 # Incontinent Bowel Movements 2 Narrative: awake, smiles eyes open, focus and tracks followed simple commands pupils equal moves all four extremities tracheostomy - Urinary Catheter Management Indwelling Temp Sensing Catheter Cath placed during this visit: yes, but has since been removed by the nurse Reason for continuing: Not indwelling catheter Insertion date: 06/02/18 Insertion time: 17:55 Removal date: 06/19/18 Removal time: 17:30 <Josephine Pena - Last Filed: 06/23/18 12:16> Vital signs: Vital Signs 06/22/18 18:00 06/22/18 19:56 06/22/18 20:00 Temperature 99.4 F Pulse Rate 93 H 80 Respiratory Rate 20 Blood Pressure 137/85 Pulse Oximetry 96 96 06/22/18 22:00 06/23/18 00:00 06/23/18 02:00 Temperature 99.2 F Pulse Rate 80 91 H 97 H Respiratory Rate 20 Blood Pressure 111/75 Pulse Oximetry 98 06/23/18 04:00 06/23/18 06:00 06/23/18 06:07 Temperature 99.3 F Pulse Rate 81 76 Respiratory Rate 13 Blood Pressure 149/91 H Pulse Oximetry 100 96 06/23/18 07:21 06/23/18 08:00 06/23/18 10:31 Temperature 99.8 F H Pulse Rate 96 H 96 H Respiratory Rate 24 Blood Pressure 153/89 H Pulse Oximetry 94 L 97 06/23/18 12:00 06/23/18 14:00 06/23/18 16:00 Temperature 100.9 F H 98.5 F Pulse Rate 90 91 H 90 Respiratory Rate 16 17 Blood Pressure 134/94 H 152/94 H Pulse Oximetry 97 94 L Intake & Output 06/22/18 06/23/18 06/23/18 18:59 06:59 18:59 Intake Total 1652 / 1652 826 / 826 Output Total 1600 / 1600 1000 / 1000 Balance 52 / 52 -174 / -174 Weight 72 kg Intake: IV 320 / 320 D5W Inj 1,000 ML @ 40 mls/hr IV 320 / 320 .CONT .Q24H [facility] Rx#:[id number] Tube Feeding 612 / 612 706 / 706 Tube Irrigant 120 / 120 120 / 120 Water Bolus Amount 600 / 600 Output: Urine 1600 / 1600 1000 / 1000 Other: Date of Last Bowel Movement 06/21/18 06/21/18 06/21/18 # Bowel Movements 1 # Incontinent Bowel Movements 2 Narrative: The patient is ventilated though racheostomy. open eyes. Follows commands Cranial Nerves: Pupils equal, 3 mm round, reactive to light. Eyes appear conjugated. There was no nystagmus, no papilledema. Face musculature appeared symmetrical at rest. Face sensation, olfaction, and hearing cannot be adequately assessed due to the patient's neurological condition. The patient has a corneal reflex. The patient has a gag reflex. The sternocleidomastoid and trapezius were symmetrical. Cervical Spine: The patient's neck is soft, supple, without nuchal rigidity. Motor: His muscle tone and bulk are normal. He moves purposefully all 4 extremities symmetrically. Reflexes: Deep tendon reflexes are 2+ and symmetrical in the biceps, triceps, and brachioradialis, bilaterally, in the upper extremities. In the lower extremities, the patellar and ankles are 2+, bilaterally. There is a bilateral plantar flexion response. There is no clonus or other abnormal reflexes noted. Sensory: On examination there there is response to painful stimuli, localizing with both upper and lower extremities. Cerebellar: Examination cannot be adequately assessed due to the patient's neurological condition. Lungs: clear Heart: Regular rhythm and rate Skin: warm and dry - Urinary Catheter Management Indwelling Temp Sensing Catheter Cath placed during this visit: no <Jerrell Mas - Last Filed: 06/23/18 17:07> Assessment and Plan - Assessment (1) CHI (closed head injury) Code(s): S09.90XA - Unspecified injury of head, initial encounter Status: Acute Qualifiers: Encounter type: initial encounter Qualified Code(s): S09.90XA - Unspecified injury of head, initial encounter - Plan stable neurological exam, cont neuro checks cont therapy and rehab <Josephine Pena - Last Filed: 06/23/18 12:16> - Assessment (1) CHI (closed head injury) Code(s): S09.90XA - Unspecified injury of head, initial encounter Status: Acute Qualifiers: Encounter type: initial encounter Qualified Code(s): S09.90XA - Unspecified injury of head, initial encounter - Plan (1) CHI (closed head injury) Code(s): S09.90XA - Unspecified injury of head, initial encounter Status: Acute Qualifiers: Encounter type: initial encounter Qualified Code(s): S09.90XA - Unspecified injury of head, initial encounter (2) Fracture of left orbit Code(s): S02.82XA - Fracture of other specified skull and facial bones, left side, initial encounter for closed fracture Status: Acute Qualifiers: Encounter type: initial encounter Fracture type: open Qualified Code(s): S02.82XB - Fracture of other specified skull and facial bones, left side, initial encounter for open fracture (3) Respiratory failure Code(s): J96.90 - Respiratory failure, unspecified, unspecified whether with hypoxia or hypercapnia Status: Acute Qualifiers: Chronicity: acute Respiratory failure complication: hypoxia and hypercapnia Qualified Code(s): J96.01 - Acute respiratory failure with hypoxia ; J96.02 - Acute respiratory failure with hypercapnia (4) Fracture of left orbital floor Code(s): S02.32XA - Fracture of orbital floor, left side, initial encounter for closed fracture Status: Acute (5) Major neurocognitive disorder as late effect of traumatic brain injury with behavioral disturbance Code(s): S06.9X9S - Unspecified intracranial injury with loss of consciousness of unspecified duration, sequela; F02.81 - Dementia in other diseases classified elsewhere with behavioral disturbance Status: Acute (6) HUSAM (acute kidney injury) Code(s): N17.9 - Acute kidney failure, unspecified Status: Acute (7) Hypernatremia Code(s): E87.0 - Hyperosmolality and hypernatremia Status: Acute (8) Fluid overload Code(s): E87.70 - Fluid overload, unspecified Status: Acute Qualifiers: Hypervolemia type: transfusion-associated Qualified Code(s): E87.71 - Transfusion associated circulatory overload - Attending Attestation Patient doing somewhat timoteo, opening eyes and follows commands Hemodynamically stable Bilateral breath sounds good PO2 FiO2 gradient and mild respiratory alkalosis and hypocarbia. Patient had tracheostomy and PEG placement today off the ventilator, on tracheostomy collar Continue Seroquel Renal function preserved Continue aggressive pulmonary toilette, nasotracheal suction, and breathing treatments with nebulizers. Daily PT and OT Renal: Continue to monitor closely urine output, BUN and creatinine Endocrine: Continue to Monitor serial Acu checks and SSI as needed in detail ID continue to monitor for signs of infection Continue Protonix for stress ulcer prophylaxis Continue Ra hose and SCD's for DVT prophylaxis The exam, history, and the medical decision-making described in the above note were completed with the assistance of the mid-level provider. I reviewed and agree with the findings presented. I attest that I had a [id number] encounter with the patient on the same day, and personally performed and documented my assessment and findings in the medical record. <Jerrell Mas - Last Filed: 06/23/18 17:07>
[2018-06-22] MEDS: OLANZapine 10 MG Tablet PO SCH (20:45)
[2018-06-22] MEDS: QUEtiapine 100 MG Tablet PO SCH (20:46)
[2018-06-23] MEDS: Oral Hygiene Kit OROPHARYNG SCH ×4 (02:20→16:07)
[2018-06-23 05:08] LABS: Baso # (Auto) 0.1 th/mm3 (0.0-0.2); Baso % (Auto) 1.2 % (0.0-2.0); Eos # (Auto) 0.2 th/mm3 (0.0-0.4); Eos % (Auto) 1.6 % (0.0-4.0); Hematocrit 30.8 % (39.0-51.0); Hemoglobin 10.3 gm/dL (13.0-17.0); Lymph # (Auto) 1.9 th/mm3 (1.0-4.8); Lymph % (Auto) 18.3 % (9.0-44.0); Mean Corpuscular HGB Conc 33.5 % (32.0-36.0); Mean Corpuscular Hemoglobin 33.4 pg (27.0-34.0); Mean Corpuscular Volume 99.6 fL (80.0-100.0); Mean Platelet Volume 7.6 fL (7.0-11.0); Mono # (Auto) 1.4 th/mm3 (0.0-0.9); Mono % (Auto) 13.4 % (0.0-8.0); Neut # (Auto) 6.8 th/mm3 (1.8-7.7); Neut % (Auto) 65.5 % (16.0-70.0); Platelet Count 526 th/mm3 (150-450); Red Blood Count 3.09 mil/mm3 (4.50-5.90); Red Cell Distribution Width 13.4 % (11.6-17.2); White Blood Count 10.3 th/mm3 (4.0-11.0)
[2018-06-23 05:32] LABS: Calcium 8.5 mg/dL (8.5-10.1); Carbon Dioxide 24.1 meq/L (21.0-32.0); Potassium 3.7 meq/L (3.5-5.1)
[2018-06-23 06:20] LABS: Eosinophils 1 % (0-4); Lymphocytes 21 % (9-44); Monocytes 17 % (0-8); Myelocytes 2 % (0-0)
[2018-06-23 06:21] LABS: Platelet Morphology Normal (Normal)
[2018-06-23] MEDS: Heparin - SQ 10,000 UNITS/ML Vial SQ SCH ×3 (06:37→22:00)
[2018-06-23] MEDS: QUEtiapine 25 MG Tablet PO SCH ×2 (06:37→15:15)
[2018-06-23] MEDS: Hyoscyamine Liq Drops 0.125 MG/ML 15 ML Bottle SL PRN ×3 (08:05→18:39)
[2018-06-23] MEDS: Chlorhexidine 0.12% Oral Kit 15 ML UDC OROPHARYNG SCH ×2 (08:05→20:14)
[2018-06-23] MEDS: Povidone Iodine 10% Top Soln 118 ML Bottle TOPICAL SCH (08:06)
[2018-06-23] MEDS: Pantoprazole Inj 40 MG Vial IV.PUSH SCH (08:07)
[2018-06-23] MEDS: Senna/Docusate Sodium 8.6/50 MG Tablet PO SCH ×2 (08:07→20:15)
[2018-06-23] MEDS: OLANZapine 10 MG Tablet PO SCH ×2 (08:07→20:15)
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
--- NOTE | 2018-06-23 12:16 | P.PNNS ---
Subjective Interval history: 06/23: no changes to neuro examination. remains awake, alert, follows commands. <Josephine Pena - Last Filed: 06/23/18 12:15> Physical Exam Vital signs: Vital Signs 06/22/18 14:00 06/22/18 16:00 06/22/18 18:00 Temperature 99.8 F H Pulse Rate 97 H 79 93 H Respiratory Rate 29 H Blood Pressure 146/87 H Pulse Oximetry 98 06/22/18 19:56 06/22/18 20:00 06/22/18 22:00 Temperature 99.4 F Pulse Rate 80 80 Respiratory Rate 20 Blood Pressure 137/85 Pulse Oximetry 96 96 06/23/18 00:00 06/23/18 02:00 06/23/18 04:00 Temperature 99.2 F 99.3 F Pulse Rate 91 H 97 H 81 Respiratory Rate 20 13 Blood Pressure 111/75 149/91 H Pulse Oximetry 98 100 06/23/18 06:00 06/23/18 06:07 06/23/18 07:21 Temperature Pulse Rate 76 Respiratory Rate Blood Pressure Pulse Oximetry 96 94 L 06/23/18 08:00 06/23/18 10:31 Temperature 99.8 F H Pulse Rate 96 H 96 H Respiratory Rate 24 Blood Pressure 153/89 H Pulse Oximetry 97 Intake & Output 06/22/18 06/23/18 06/23/18 18:59 06:59 18:59 Intake Total 1652 / 1652 826 / 826 Output Total 1600 / 1600 1000 / 1000 Balance 52 / 52 -174 / -174 Weight 72 kg Intake: IV 320 / 320 D5W Inj 1,000 ML @ 40 mls/hr IV 320 / 320 .CONT .Q24H [facility] Rx#:[id number] Tube Feeding 612 / 612 706 / 706 Tube Irrigant 120 / 120 120 / 120 Water Bolus Amount 600 / 600 Output: Urine 1600 / 1600 1000 / 1000 Other: Date of Last Bowel Movement 06/21/18 06/21/18 06/21/18 # Bowel Movements 1 # Incontinent Bowel Movements 2 Narrative: awake, smiles eyes open, focus and tracks followed simple commands pupils equal moves all four extremities tracheostomy - Urinary Catheter Management Indwelling Temp Sensing Catheter Cath placed during this visit: yes, but has since been removed by the nurse Reason for continuing: Not indwelling catheter Insertion date: 06/02/18 Insertion time: 17:55 Removal date: 06/19/18 Removal time: 17:30 <Josephine Pena - Last Filed: 06/23/18 12:15> Vital signs: Vital Signs 06/23/18 16:00 06/23/18 18:00 06/23/18 19:22 Temperature 98.5 F Pulse Rate 90 91 H Respiratory Rate 17 Blood Pressure 152/94 H Pulse Oximetry 94 L 98 06/23/18 20:00 06/23/18 22:00 06/24/18 00:00 Temperature 100.3 F H 99.1 F Pulse Rate 96 H 80 86 Respiratory Rate 20 19 Blood Pressure 138/91 H 152/94 H Pulse Oximetry 96 98 06/24/18 02:00 06/24/18 04:00 06/24/18 06:00 Temperature 99 F Pulse Rate 92 H 91 H 78 Respiratory Rate 24 Blood Pressure 137/90 Pulse Oximetry 98 06/24/18 07:20 06/24/18 08:00 06/24/18 10:00 Temperature 98.6 F Pulse Rate 95 H 95 H Respiratory Rate 18 Blood Pressure 134/89 Pulse Oximetry 100 97 06/24/18 12:00 Temperature 98.7 F Pulse Rate 87 Respiratory Rate 29 H Blood Pressure 130/97 H Pulse Oximetry 100 Intake & Output 06/23/18 06/24/18 06/24/18 18:59 06:59 18:59 Intake Total 1332 / 1332 753 / 753 Output Total 1600 / 1600 1300 / 1300 Balance -268 / -268 -547 / -547 Weight 68.1 kg Intake: Tube Feeding 612 / 612 553 / 553 Tube Irrigant 120 / 120 Water Bolus Amount 600 / 600 200 / 200 Output: Urine 1600 / 1600 1300 / 1300 Other: Date of Last Bowel Movement 06/21/18 06/21/18 06/21/18 Narrative: Mr Domingo is alert, Cranial nerve examination demonstrates the pupils to be equal, round, and reactive to light. Extra-ocular movements are intact with normal convergence. Facial motornormal and symmetrical.face sensation,hearing, visual acuity, taste, and olfaction can not be assessed due to the patient's neurological condition.Sternocleidomastoid and deltoid musclesasymmetrical. Neck is soft and supple. Tracheostomy in place Muscle testing revealsnormal bulk and tonewith gross movement in both upper and lowerextremities Sensory examination islimited but no deficits noted Deep tendon reflexes are1+ and symmetrical in upper andlower extremities. Bilateral plantar flexion response. Hoffmanns sign is negative. There is no clonus or other abnormal reflexes noted. Cerebellar examinationcan not be assessed due the patient's neurological condition Lungs: clear Heart: Regular rhythm and rate Skin: warm and dry - Urinary Catheter Management Indwelling Temp Sensing Catheter Cath placed during this visit: no <Jerrell Mas - Last Filed: 06/24/18 15:50> Assessment and Plan - Assessment (1) CHI (closed head injury) Code(s): S09.90XA - Unspecified injury of head, initial encounter Status: Acute Qualifiers: Encounter type: initial encounter Qualified Code(s): S09.90XA - Unspecified injury of head, initial encounter - Plan stable neurological exam, cont neuro checks cont therapy and rehab efforts <Josephine Pena - Last Filed: 06/23/18 12:15> - Assessment (1) CHI (closed head injury) Code(s): S09.90XA - Unspecified injury of head, initial encounter Status: Acute Qualifiers: Encounter type: initial encounter Qualified Code(s): S09.90XA - Unspecified injury of head, initial encounter - Plan (1) CHI (closed head injury) Code(s): S09.90XA - Unspecified injury of head, initial encounter Status: Acute Qualifiers: Encounter type: initial encounter Qualified Code(s): S09.90XA - Unspecified injury of head, initial encounter (2) Fracture of left orbit Code(s): S02.82XA - Fracture of other specified skull and facial bones, left side, initial encounter for closed fracture Status: Acute Qualifiers: Encounter type: initial encounter Fracture type: open Qualified Code(s): S02.82XB - Fracture of other specified skull and facial bones, left side, initial encounter for open fracture (3) Respiratory failure Code(s): J96.90 - Respiratory failure, unspecified, unspecified whether with hypoxia or hypercapnia Status: Acute Qualifiers: Chronicity: acute Respiratory failure complication: hypoxia and hypercapnia Qualified Code(s): J96.01 - Acute respiratory failure with hypoxia ; J96.02 - Acute respiratory failure with hypercapnia (4) Fracture of left orbital floor Code(s): S02.32XA - Fracture of orbital floor, left side, initial encounter for closed fracture Status: Acute (5) Major neurocognitive disorder as late effect of traumatic brain injury with behavioral disturbance Code(s): S06.9X9S - Unspecified intracranial injury with loss of consciousness of unspecified duration, sequela; F02.81 - Dementia in other diseases classified elsewhere with behavioral disturbance Status: Acute (6) HUSAM (acute kidney injury) Code(s): N17.9 - Acute kidney failure, unspecified Status: Acute (7) Hypernatremia Code(s): E87.0 - Hyperosmolality and hypernatremia Status: Acute (8) Fluid overload Code(s): E87.70 - Fluid overload, unspecified Status: Acute Qualifiers: Hypervolemia type: transfusion-associated Qualified Code(s): E87.71 - Transfusion associated circulatory overload - Attending Attestation Mr Domingo is on multiple neurobehavioral modulators and slowly improving Continue Seroquel Renal function preserved Continue aggressive pulmonary toilette, nasotracheal suction, and breathing treatments with nebulizers. Daily PT and OT Renal: Continue to monitor closely urine output, BUN and creatinine Endocrine: Continue to Monitor serial Acu checks and SSI as needed in detail ID continue to monitor for signs of infection Continue Protonix for stress ulcer prophylaxis Continue Ra hose and SCD's for DVT prophylaxis The exam, history, and the medical decision-making described in the above note were completed with the assistance of the mid-level provider. I reviewed and agree with the findings presented. I attest that I had a [id number] encounter with the patient on the same day, and personally performed and documented my assessment and findings in the medical record. <Jerrell Mas - Last Filed: 06/24/18 15:50>
[2018-06-23] MEDS: QUEtiapine 100 MG Tablet PO SCH (20:15)
[2018-06-24] MEDS: Oral Hygiene Kit OROPHARYNG SCH ×4 (02:38→16:39)
[2018-06-24 05:21] LABS: Baso # (Auto) 0.1 th/mm3 (0.0-0.2); Baso % (Auto) 0.9 % (0.0-2.0); Eos # (Auto) 0.1 th/mm3 (0.0-0.4); Eos % (Auto) 1.1 % (0.0-4.0); Hematocrit 34.2 % (39.0-51.0); Hemoglobin 11.4 gm/dL (13.0-17.0); Lymph % (Auto) 16.5 % (9.0-44.0); Mean Corpuscular HGB Conc 33.4 % (32.0-36.0); Mean Corpuscular Volume 98.7 fL (80.0-100.0); Mean Platelet Volume 8.2 fL (7.0-11.0); Mono # (Auto) 1.4 th/mm3 (0.0-0.9); Neut # (Auto) 8.4 th/mm3 (1.8-7.7); Neut % (Auto) 69.5 % (16.0-70.0); Platelet Count 461 th/mm3 (150-450); Red Blood Count 3.47 mil/mm3 (4.50-5.90); Red Cell Distribution Width 13.9 % (11.6-17.2)
[2018-06-24] MEDS: Heparin - SQ 10,000 UNITS/ML Vial SQ SCH ×3 (05:33→23:40)
[2018-06-24 05:49] LABS: Albumin 2.8 g/dL (3.4-5.0); Anion Gap 7 meq/L (5-15); Aspartate Aminotransferase 13 U/L (15-37); Blood Urea Nitrogen 14 mg/dL (7-18); Calcium 8.8 mg/dL (8.5-10.1); Carbon Dioxide 29.5 meq/L (21.0-32.0); Chloride 111 meq/L (98-107); Glomerular Filtration Rate 56 mL/min (>89); Glucose,Random 112 mg/dL (74-106); Potassium 3.6 meq/L (3.5-5.1); Sodium 147 meq/L (136-145)
[2018-06-24 05:50] LABS: Alanine Aminotransferase 14 U/L (12-78)
[2018-06-24 05:52] LABS: Alkaline Phosphatase 105 U/L (45-117); Total Protein 8.1 g/dL (6.4-8.2)
[2018-06-24] MEDS: QUEtiapine 25 MG Tablet PO SCH ×2 (06:34→14:29)
[2018-06-24 07:17] LABS: Eosinophils 1 % (0-4); Lymphocytes 15 % (9-44); Monocytes 7 % (0-8); Myelocytes 1 % (0-0); Platelet Morphology Normal (Normal)
[2018-06-24] MEDS: Pantoprazole Inj 40 MG Vial IV.PUSH SCH (08:04)
[2018-06-24] MEDS: Senna/Docusate Sodium 8.6/50 MG Tablet PO SCH ×2 (08:04→20:29)
[2018-06-24] MEDS: OLANZapine 10 MG Tablet PO SCH ×2 (08:04→20:30)
[2018-06-24] MEDS: Hyoscyamine Liq Drops 0.125 MG/ML 15 ML Bottle SL PRN (08:05)
[2018-06-24] MEDS: Chlorhexidine 0.12% Oral Kit 15 ML UDC OROPHARYNG SCH ×2 (08:06→20:30)
[2018-06-24] MEDS: Povidone Iodine 10% Top Soln 118 ML Bottle TOPICAL SCH (08:06)
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
--- NOTE | 2018-06-24 12:15 | P.PNNS ---
Subjective Interval history: 06/24: neuro stable overnight <Josephine Pena - Last Filed: 06/24/18 12:13> Physical Exam Vital signs: Vital Signs 06/23/18 14:00 06/23/18 16:00 06/23/18 18:00 Temperature 98.5 F Pulse Rate 91 H 90 91 H Respiratory Rate 17 Blood Pressure 152/94 H Pulse Oximetry 94 L 06/23/18 19:22 06/23/18 20:00 06/23/18 22:00 Temperature 100.3 F H Pulse Rate 96 H 80 Respiratory Rate 20 Blood Pressure 138/91 H Pulse Oximetry 98 96 06/24/18 00:00 06/24/18 02:00 06/24/18 04:00 Temperature 99.1 F 99 F Pulse Rate 86 92 H 91 H Respiratory Rate 19 24 Blood Pressure 152/94 H 137/90 Pulse Oximetry 98 98 06/24/18 06:00 06/24/18 07:20 06/24/18 08:00 Temperature 98.6 F Pulse Rate 78 95 H Respiratory Rate 18 Blood Pressure 134/89 Pulse Oximetry 100 97 06/24/18 10:00 Temperature Pulse Rate 95 H Respiratory Rate Blood Pressure Pulse Oximetry Intake & Output 06/23/18 06/24/18 06/24/18 18:59 06:59 18:59 Intake Total 1332 / 1332 753 / 753 Output Total 1600 / 1600 1300 / 1300 Balance -268 / -268 -547 / -547 Weight 68.1 kg Intake: Tube Feeding 612 / 612 553 / 553 Tube Irrigant 120 / 120 Water Bolus Amount 600 / 600 200 / 200 Output: Urine 1600 / 1600 1300 / 1300 Other: Date of Last Bowel Movement 06/21/18 06/21/18 06/21/18 Narrative: alert followed simple commands pupils equal moves all four extremities to commands - Urinary Catheter Management Indwelling Temp Sensing Catheter Cath placed during this visit: yes, but has since been removed by the nurse Reason for continuing: Not indwelling catheter Insertion date: 06/02/18 Insertion time: 17:55 Removal date: 06/19/18 Removal time: 17:30 <Josephine Pena - Last Filed: 06/24/18 12:13> Vital signs: Vital Signs 06/23/18 16:00 06/23/18 18:00 06/23/18 19:22 Temperature 98.5 F Pulse Rate 90 91 H Respiratory Rate 17 Blood Pressure 152/94 H Pulse Oximetry 94 L 98 06/23/18 20:00 06/23/18 22:00 06/24/18 00:00 Temperature 100.3 F H 99.1 F Pulse Rate 96 H 80 86 Respiratory Rate 20 19 Blood Pressure 138/91 H 152/94 H Pulse Oximetry 96 98 06/24/18 02:00 06/24/18 04:00 06/24/18 06:00 Temperature 99 F Pulse Rate 92 H 91 H 78 Respiratory Rate 24 Blood Pressure 137/90 Pulse Oximetry 98 06/24/18 07:20 06/24/18 08:00 06/24/18 10:00 Temperature 98.6 F Pulse Rate 95 H 95 H Respiratory Rate 18 Blood Pressure 134/89 Pulse Oximetry 100 97 06/24/18 12:00 Temperature 98.7 F Pulse Rate 87 Respiratory Rate 29 H Blood Pressure 130/97 H Pulse Oximetry 100 Intake & Output 06/23/18 06/24/18 06/24/18 18:59 06:59 18:59 Intake Total 1332 / 1332 753 / 753 Output Total 1600 / 1600 1300 / 1300 Balance -268 / -268 -547 / -547 Weight 68.1 kg Intake: Tube Feeding 612 / 612 553 / 553 Tube Irrigant 120 / 120 Water Bolus Amount 600 / 600 200 / 200 Output: Urine 1600 / 1600 1300 / 1300 Other: Date of Last Bowel Movement 06/21/18 06/21/18 06/21/18 Narrative: Mr Domingo is alert, trach collar Cranial nerve examination demonstrates the pupils to be equal, round, and reactive to light. Extra-ocular movements are intact with normal convergence. Facial motornormal and symmetrical.face sensation,hearing, visual acuity, taste, and olfaction can not be assessed due to the patient's neurological condition.Sternocleidomastoid and deltoid musclesasymmetrical. Neck is soft and supple. Tracheostomy in place Muscle testing revealsnormal bulk and tonewith gross movement in both upper and lowerextremities Sensory examination islimited but no deficits noted Deep tendon reflexes are1+ and symmetrical in upper andlower extremities. Bilateral plantar flexion response. Hoffmanns sign is negative. There is no clonus or other abnormal reflexes noted. Cerebellar examinationcan not be assessed due the patient's neurological condition Lungs: clear Heart: Regular rhythm and rate Skin: warm and dry - Urinary Catheter Management Indwelling Temp Sensing Catheter Cath placed during this visit: no <Jerrell Mas - Last Filed: 06/24/18 15:56> Assessment and Plan - Assessment (1) CHI (closed head injury) Code(s): S09.90XA - Unspecified injury of head, initial encounter Status: Acute Qualifiers: Encounter type: initial encounter Qualified Code(s): S09.90XA - Unspecified injury of head, initial encounter - Plan cont therapy and rehab efforts cont trauma management pt has been neurologically stable, improving, no further nrs interventions planned, will sign off, call prn <Josephine Pena - Last Filed: 06/24/18 12:13> - Assessment (1) CHI (closed head injury) Code(s): S09.90XA - Unspecified injury of head, initial encounter Status: Acute Qualifiers: Encounter type: initial encounter Qualified Code(s): S09.90XA - Unspecified injury of head, initial encounter - Plan - Assessment (1) CHI (closed head injury) Code(s): S09.90XA - Unspecified injury of head, initial encounter Status: Acute Qualifiers: Encounter type: initial encounter Qualified Code(s): S09.90XA - Unspecified injury of head, initial encounter - Plan (1) CHI (closed head injury) Code(s): S09.90XA - Unspecified injury of head, initial encounter Status: Acute Qualifiers: Encounter type: initial encounter Qualified Code(s): S09.90XA - Unspecified injury of head, initial encounter (2) Fracture of left orbit Code(s): S02.82XA - Fracture of other specified skull and facial bones, left side, initial encounter for closed fracture Status: Acute Qualifiers: Encounter type: initial encounter Fracture type: open Qualified Code(s): S02.82XB - Fracture of other specified skull and facial bones, left side, initial encounter for open fracture (3) Respiratory failure Code(s): J96.90 - Respiratory failure, unspecified, unspecified whether with hypoxia or hypercapnia Status: Acute Qualifiers: Chronicity: acute Respiratory failure complication: hypoxia and hypercapnia Qualified Code(s): J96.01 - Acute respiratory failure with hypoxia ; J96.02 - Acute respiratory failure with hypercapnia (4) Fracture of left orbital floor Code(s): S02.32XA - Fracture of orbital floor, left side, initial encounter for closed fracture Status: Acute (5) Major neurocognitive disorder as late effect of traumatic brain injury with behavioral disturbance Code(s): S06.9X9S - Unspecified intracranial injury with loss of consciousness of unspecified duration, sequela; F02.81 - Dementia in other diseases classified elsewhere with behavioral disturbance Status: Acute (6) HUSAM (acute kidney injury) Code(s): N17.9 - Acute kidney failure, unspecified Status: Acute (7) Hypernatremia Code(s): E87.0 - Hyperosmolality and hypernatremia Status: Acute (8) Fluid overload Code(s): E87.70 - Fluid overload, unspecified Status: Acute Qualifiers: Hypervolemia type: transfusion-associated Qualified Code(s): E87.71 - Transfusion associated circulatory overload - Attending Attestation Mr Domingo is improving, on multiple neurobehavioral modulators managed by Dr Neal Continue Seroquel Renal function preserved Continue aggressive pulmonary toilette, nasotracheal suction, and breathing treatments with nebulizers. Daily PT and OT Renal: Continue to monitor closely urine output, BUN and creatinine Endocrine: Continue to Monitor serial Acu checks and SSI as needed in detail ID continue to monitor for signs of infection Continue Protonix for stress ulcer prophylaxis Continue Ra hose and SCD's for DVT prophylaxis Discharge planning The exam, history, and the medical decision-making described in the above note were completed with the assistance of the mid-level provider. I reviewed and agree with the findings presented. I attest that I had a [id number] encounter with the patient on the same day, and personally performed and documented my assessment and findings in the medical record. <Jerrell Mas - Last Filed: 06/24/18 15:56>
[2018-06-24] MEDS: QUEtiapine 100 MG Tablet PO SCH (20:29)
[2018-06-25] MEDS: Oral Hygiene Kit OROPHARYNG SCH ×4 (00:13→17:32)
[2018-06-25 04:01] LABS: Baso # (Auto) 0.1 th/mm3 (0.0-0.2); Baso % (Auto) 0.7 % (0.0-2.0); Eos # (Auto) 0.1 th/mm3 (0.0-0.4); Eos % (Auto) 0.9 % (0.0-4.0); Hematocrit 30.6 % (39.0-51.0); Hemoglobin 10.2 gm/dL (13.0-17.0); Lymph # (Auto) 1.8 th/mm3 (1.0-4.8); Lymph % (Auto) 13.1 % (9.0-44.0); Mean Corpuscular HGB Conc 33.5 % (32.0-36.0); Mean Corpuscular Hemoglobin 32.7 pg (27.0-34.0); Mean Corpuscular Volume 97.7 fL (80.0-100.0); Mean Platelet Volume 7.6 fL (7.0-11.0); Mono # (Auto) 1.3 th/mm3 (0.0-0.9); Mono % (Auto) 9.8 % (0.0-8.0); Neut # (Auto) 10.3 th/mm3 (1.8-7.7); Neut % (Auto) 75.5 % (16.0-70.0); Platelet Count 488 th/mm3 (150-450); Red Blood Count 3.13 mil/mm3 (4.50-5.90); Red Cell Distribution Width 13.4 % (11.6-17.2); White Blood Count 13.7 th/mm3 (4.0-11.0)
[2018-06-25 04:25] LABS: Albumin 3.1 g/dL (3.4-5.0); Anion Gap 7 meq/L (5-15); Aspartate Aminotransferase 11 U/L (15-37); Blood Urea Nitrogen 18 mg/dL (7-18); Calcium 9.1 mg/dL (8.5-10.1); Carbon Dioxide 28.2 meq/L (21.0-32.0); Chloride 111 meq/L (98-107); Glomerular Filtration Rate 56 mL/min (>89); Glucose,Random 126 mg/dL (74-106); Potassium 3.8 meq/L (3.5-5.1); Sodium 146 meq/L (136-145)
[2018-06-25 04:29] LABS: Alanine Aminotransferase 14 U/L (12-78); Alkaline Phosphatase 101 U/L (45-117); Total Protein 8.1 g/dL (6.4-8.2)
--- NOTE | 2018-06-25 08:09 | P.PNNPSY ---
- Behavior Intact: Impulsive/agitated - Cognitive Severe: Cognitive, Attention/concentration, Confused/orientation, Insight/ awareness, Judgment/problem solving, Memory - Psychosocial Moderate: Psychosocial, Family/other adjustment, Realistic expectation, Self- esteem/confidence - Progress Notes/Response to Treatment Contents of Sessions: Adjustment, Level of consciousness Time with Patient: 30 minutes Premorbid Psychological Status: Premorbid Cognitive, Emotional and Behavioral Status: Deferred. The patient has high school years of education and a solid work history prior to this injury. The patient's prior psychiatric difficulties, if any, are unknown. Substance abuse history is unknown. Behavioral Reactions of Patient and Family/Support System: Deferred. The patients family is experiencing ongoing issues of adjustment given the nature of the injury, and this aspect of recovery will require ongoing monitoring. Emotional/Behavioral Status of Patient and Family/Support System: Deferred. Pertinent issues, if appropriate to this patients clinical care, are described in detail above. Maximizing Acute Care Outcome: It is recommended that the patient be monitored for emergent behavioral impulsivity as the medical condition evolves. This patients neuropathological challenges may limit rehabilitation potential going forward, and these challenges will require specialized therapeutic skills to maximize outcome. Additionally, the patients family is experiencing ongoing issues of adjustment given the traumatic nature of the injury, and they may benefit from ongoing psychological assistance. At this point in the recovery process, the patient does not have cognitive capacity as the patient is unable to understand a situation and its likely consequences, nor is the patient able to manipulate information rationally. Cognitive capacity will be assessed throughout the recovery process. Anticipated Problems: Ongoing areas of concern will include behavioral impulsivity, lack of insight and judgment, which is expected to improve with time and treatment. Presently , the patient is critically ill. Given the severity of the patient's injuries it is my clinical opinion that this patient will be unable to return to any type of productive employment for at least one year, perhaps longer and likely never. This patient is not considered safe to discharge home without supervision. Treatment Plan: This clinician will continue to follow with you throughout the course of this patients critical care treatment, and I will be available to meet with the patients family/support system to facilitate their understanding and the ongoing care of their family member. The goals of neuropsychological intervention shall be both educational and supportive to the family/support system as is deemed clinically appropriate. [place] COG Scale: Level IV Disinhibition Score: 21.00 Aggression Score: 14.00 Lability Score: 14.00 Agitated Behavior Total Score: 18 Impression: 57 year old male s/p TBI 2T [facility] [place] on 06/02/2018. Progress Note Narrative: PTD 23 and day 12 of Rancho IV. The patient is neurobehaviorally stable. His agitation/restlessness is managed with a combination of Zyprexa 10 BID, Seroquel 50/50/100 and VPA 500 TID. He is still having problems at night. LFTs are low. Recent ABS is 18 (21,14,14), below clinical significance. Suggestion is to wait for him to transfer to the [facility] floor and then at that point make changes, if necessary. He will also have a greater opportunity for PT/OT/[facility]. Cognitive evaluation ordered. I will continue to follow. - Diagnosis (1) Major neurocognitive disorder as late effect of traumatic brain injury with behavioral disturbance Status: Acute
[2018-06-25] MEDS: Povidone Iodine 10% Top Soln 118 ML Bottle TOPICAL SCH (08:58)
[2018-06-25] MEDS: Heparin - SQ 10,000 UNITS/ML Vial SQ SCH ×3 (08:58→21:15)
[2018-06-25] MEDS: Chlorhexidine 0.12% Oral Kit 15 ML UDC OROPHARYNG SCH ×2 (08:58→21:17)
[2018-06-25] MEDS: QUEtiapine 25 MG Tablet PO SCH (08:58)
[2018-06-25] MEDS: OLANZapine 10 MG Tablet PO SCH ×2 (08:59→20:00)
[2018-06-25] MEDS: Pantoprazole Inj 40 MG Vial IV.PUSH SCH (08:59)
[2018-06-25] MEDS: Senna/Docusate Sodium 8.6/50 MG Tablet PO SCH ×2 (08:59→21:13)
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
[2018-06-25] MEDS: Haloperidol Inj 5 MG/ML Ampul IV.PUSH PRN ×2 (12:40→19:51)
[2018-06-25] MEDS: QUEtiapine 100 MG Tablet PO SCH ×2 (13:44→20:01)
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
[2018-06-26] MEDS: Heparin - SQ 10,000 UNITS/ML Vial SQ SCH ×3 (05:21→21:17)
[2018-06-26] MEDS: Oral Hygiene Kit OROPHARYNG SCH ×3 (05:26→18:15)
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
[2018-06-26] MEDS: Pantoprazole Inj 40 MG Vial IV.PUSH SCH (09:26)
[2018-06-26] MEDS: QUEtiapine 100 MG Tablet PO SCH ×3 (09:26→21:18)
[2018-06-26] MEDS: OLANZapine 10 MG Tablet PO SCH ×2 (09:26→21:18)
[2018-06-26] MEDS: Chlorhexidine 0.12% Oral Kit 15 ML UDC OROPHARYNG SCH ×2 (09:27→21:18)
[2018-06-26] MEDS: Povidone Iodine 10% Top Soln 118 ML Bottle TOPICAL SCH (09:27)
[2018-06-26] MEDS: Senna/Docusate Sodium 8.6/50 MG Tablet PO SCH ×2 (09:28→21:17)
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
[2018-06-27] MEDS: Oral Hygiene Kit OROPHARYNG SCH ×5 (05:04→23:43)
[2018-06-27] MEDS: Heparin - SQ 10,000 UNITS/ML Vial SQ SCH ×3 (05:08→21:39)
[2018-06-27 06:01] LABS: Baso # (Auto) 0.1 th/mm3 (0.0-0.2); Baso % (Auto) 1.2 % (0.0-2.0); Eos # (Auto) 0.2 th/mm3 (0.0-0.4); Eos % (Auto) 2.2 % (0.0-4.0); Hematocrit 34.1 % (39.0-51.0); Hemoglobin 11.4 gm/dL (13.0-17.0); Lymph # (Auto) 1.8 th/mm3 (1.0-4.8); Lymph % (Auto) 21.2 % (9.0-44.0); Mean Corpuscular HGB Conc 33.3 % (32.0-36.0); Mean Corpuscular Hemoglobin 32.9 pg (27.0-34.0); Mean Corpuscular Volume 98.7 fL (80.0-100.0); Mean Platelet Volume 7.9 fL (7.0-11.0); Mono % (Auto) 12.2 % (0.0-8.0); Neut # (Auto) 5.4 th/mm3 (1.8-7.7); Neut % (Auto) 63.2 % (16.0-70.0); Platelet Count 423 th/mm3 (150-450); Red Blood Count 3.46 mil/mm3 (4.50-5.90); Red Cell Distribution Width 13.6 % (11.6-17.2); White Blood Count 8.5 th/mm3 (4.0-11.0)
[2018-06-27 06:22] LABS: Albumin 3.1 g/dL (3.4-5.0); Anion Gap 7 meq/L (5-15); Aspartate Aminotransferase 21 U/L (15-37); Blood Urea Nitrogen 21 mg/dL (7-18); Calcium 9.3 mg/dL (8.5-10.1); Carbon Dioxide 29.2 meq/L (21.0-32.0); Chloride 113 meq/L (98-107); Glomerular Filtration Rate 59 mL/min (>89); Glucose,Random 104 mg/dL (74-106); Sodium 149 meq/L (136-145)
[2018-06-27 06:28] LABS: Alanine Aminotransferase 19 U/L (12-78); Alkaline Phosphatase 107 U/L (45-117); Total Protein 8.4 g/dL (6.4-8.2)
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
[2018-06-27] MEDS: Senna/Docusate Sodium 8.6/50 MG Tablet PO SCH ×2 (08:55→20:29)
[2018-06-27] MEDS: OLANZapine 10 MG Tablet PO SCH ×2 (08:55→20:29)
[2018-06-27] MEDS: Pantoprazole Inj 40 MG Vial IV.PUSH SCH (08:55)
[2018-06-27] MEDS: Povidone Iodine 10% Top Soln 118 ML Bottle TOPICAL SCH (08:57)
[2018-06-27] MEDS: Chlorhexidine 0.12% Oral Kit 15 ML UDC OROPHARYNG SCH ×2 (08:57→20:28)
[2018-06-27] MEDS: QUEtiapine 100 MG Tablet PO SCH ×3 (08:57→20:30)
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
[2018-06-27] MEDS: Haloperidol Inj 5 MG/ML Ampul IV.PUSH PRN (15:01)
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
[2018-06-28] MEDS: Oral Hygiene Kit OROPHARYNG SCH ×3 (04:45→16:15)
[2018-06-28] MEDS: Heparin - SQ 10,000 UNITS/ML Vial SQ SCH ×3 (05:44→21:42)
[2018-06-28] MEDS: QUEtiapine 100 MG Tablet PO SCH ×3 (06:10→20:35)
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
[2018-06-28] MEDS ORDERED: OLANZapine 10 MG Tablet PO SCH (09:08)
[2018-06-28] MEDS: Pantoprazole Inj 40 MG Vial IV.PUSH SCH (09:34)
[2018-06-28] MEDS: Senna/Docusate Sodium 8.6/50 MG Tablet PO SCH ×2 (09:34→20:36)
[2018-06-28] MEDS: Chlorhexidine 0.12% Oral Kit 15 ML UDC OROPHARYNG SCH ×2 (09:35→20:36)
[2018-06-28] MEDS: Povidone Iodine 10% Top Soln 118 ML Bottle TOPICAL SCH (09:38)
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
--- NOTE | 2018-06-28 11:29 | P.PNNS ---
Subjective Interval history: NOTE FROM 06/27/18 Neurologically stable, sitting up in bed. Pronouncing simple words He is calm today, but still impulsive. He has been walking with PT Physical Exam Vital signs: Vital Signs 06/27/18 12:00 06/27/18 16:00 06/27/18 20:00 Temperature 98.7 F 98.5 F 98.5 F Pulse Rate 84 110 H 103 H Respiratory Rate 22 18 18 Blood Pressure 145/85 H 151/89 H 159/96 H Pulse Oximetry 96 96 100 06/28/18 00:00 06/28/18 03:20 06/28/18 04:00 Temperature 98.8 F 98.2 F Pulse Rate 90 73 Respiratory Rate 20 22 22 Blood Pressure 161/98 H 156/86 H Pulse Oximetry 96 95 06/28/18 07:17 Temperature Pulse Rate Respiratory Rate Blood Pressure Pulse Oximetry 96 Intake & Output 06/27/18 06/28/18 06/28/18 18:59 06:59 18:59 Intake Total 785 / 785 826 / 826 Output Total 600 / 600 750 / 750 Balance 185 / 185 76 / 76 Weight 61.5 kg Intake: Oral 0 / 0 Tube Feeding 685 / 685 506 / 506 Tube Irrigant 100 / 100 120 / 120 Water Bolus Amount 200 / 200 Output: Urine 600 / 600 750 / 750 Other: # Voids 2 4 Date of Last Bowel Movement 06/25/18 06/25/18 # Bowel Movements 0 0 # Incontinent Bowel Movements 3 Narrative: NOTE FROM 06/27/18 Mr Domingo is alert, trach collar Cranial nerve examination demonstrates the pupils to be equal, round, and reactive to light. Extra-ocular movements are intact with normal convergence. Facial motornormal and symmetrical.face sensation,hearing, visual acuity, taste, and olfaction can not be assessed due to the patient's neurological condition.Sternocleidomastoid and deltoid musclesasymmetrical. Neck is soft and supple. Tracheostomy in place Muscle testing revealsnormal bulk and tonewith gross movement in both upper and lowerextremities Sensory examination islimited but no deficits noted Deep tendon reflexes are1+ and symmetrical in upper andlower extremities. Bilateral plantar flexion response. Hoffmanns sign is negative. There is no clonus or other abnormal reflexes noted. Cerebellar examinationcan not be assessed due the patient's neurological condition Lungs: clear Heart: Regular rhythm and rate Skin: warm and dry - Urinary Catheter Management Indwelling Temp Sensing Catheter Cath placed during this visit: yes, but has since been removed by the nurse Reason for continuing: Not indwelling catheter Insertion date: 06/02/18 Insertion time: 17:55 Removal date: 06/19/18 Removal time: 17:30 Assessment and Plan - Assessment (1) CHI (closed head injury) Code(s): S09.90XA - Unspecified injury of head, initial encounter Status: Acute Qualifiers: Encounter type: initial encounter Qualified Code(s): S09.90XA - Unspecified injury of head, initial encounter - Plan NOTE FROM 06/27/18 - Assessment (1) CHI (closed head injury) Code(s): S09.90XA - Unspecified injury of head, initial encounter Status: Acute Qualifiers: Encounter type: initial encounter Qualified Code(s): S09.90XA - Unspecified injury of head, initial encounter - Plan (1) CHI (closed head injury) Code(s): S09.90XA - Unspecified injury of head, initial encounter Status: Acute Qualifiers: Encounter type: initial encounter Qualified Code(s): S09.90XA - Unspecified injury of head, initial encounter (2) Fracture of left orbit Code(s): S02.82XA - Fracture of other specified skull and facial bones, left side, initial encounter for closed fracture Status: Acute Qualifiers: Encounter type: initial encounter Fracture type: open Qualified Code(s): S02.82XB - Fracture of other specified skull and facial bones, left side, initial encounter for open fracture (3) Respiratory failure Code(s): J96.90 - Respiratory failure, unspecified, unspecified whether with hypoxia or hypercapnia Status: Acute Qualifiers: Chronicity: acute Respiratory failure complication: hypoxia and hypercapnia Qualified Code(s): J96.01 - Acute respiratory failure with hypoxia ; J96.02 - Acute respiratory failure with hypercapnia (4) Fracture of left orbital floor Code(s): S02.32XA - Fracture of orbital floor, left side, initial encounter for closed fracture Status: Acute (5) Major neurocognitive disorder as late effect of traumatic brain injury with behavioral disturbance Code(s): S06.9X9S - Unspecified intracranial injury with loss of consciousness of unspecified duration, sequela; F02.81 - Dementia in other diseases classified elsewhere with behavioral disturbance Status: Acute (6) HUSAM (acute kidney injury) Code(s): N17.9 - Acute kidney failure, unspecified Status: Acute (7) Hypernatremia Code(s): E87.0 - Hyperosmolality and hypernatremia Status: Acute (8) Fluid overload Code(s): E87.70 - Fluid overload, unspecified Status: Acute Qualifiers: Hypervolemia type: transfusion-associated Qualified Code(s): E87.71 - Transfusion associated circulatory overload - Attending Attestation Mr Domingo continues to improve Wean neuromodulators Continue aggressive pulmonary toilette, nasotracheal suction, and breathing treatments with nebulizers. Daily PT and OT Renal: Continue to monitor closely urine output, BUN and creatinine Endocrine: Continue to Monitor serial Acu checks and SSI as needed in detail ID continue to monitor for signs of infection Continue Protonix for stress ulcer prophylaxis Continue Ra denise and SCD's for DVT prophylaxis Discharge planning
[2018-06-28] MEDS: OLANZapine 10 MG Tablet PO SCH ×2 (16:16→19:43)
--- NOTE | 2018-06-28 19:08 | P.PNNS ---
Subjective Interval history: 06/28. he is alert and awake. No distress noted. Still requiring restraints due to impulsivity Tracheostomy capped trials and Passy-Paola trials. Awaiting transfer to [facility] Physical Exam Vital signs: Vital Signs 06/27/18 20:00 06/28/18 00:00 06/28/18 03:20 Temperature 98.5 F 98.8 F Pulse Rate 103 H 90 Respiratory Rate 18 20 22 Blood Pressure 159/96 H 161/98 H Pulse Oximetry 100 96 06/28/18 04:00 06/28/18 07:17 06/28/18 08:00 Temperature 98.2 F Pulse Rate 73 84 Respiratory Rate 22 Blood Pressure 156/86 H Pulse Oximetry 95 96 Intake & Output 06/28/18 06/28/18 06/29/18 06:59 18:59 06:59 Intake Total 826 / 826 Output Total 750 / 750 Balance 76 / 76 Weight 61.5 kg Intake: Oral 0 / 0 Tube Feeding 506 / 506 Tube Irrigant 120 / 120 Water Bolus Amount 200 / 200 Output: Urine 750 / 750 Other: # Voids 4 Date of Last Bowel Movement 06/25/18 06/25/18 # Bowel Movements 0 # Incontinent Bowel Movements 3 Narrative: Mr Domingo is alert, trach collar Cranial nerve examination demonstrates the pupils to be equal, round, and reactive to light. Extra-ocular movements are intact with normal convergence. Facial motornormal and symmetrical.face sensation,hearing, visual acuity, taste, and olfaction can not be assessed due to the patient's neurological condition.Sternocleidomastoid and deltoid musclesasymmetrical. Neck is soft and supple. Tracheostomy in place Muscle testing revealsnormal bulk and tonewith gross movement in both upper and lowerextremities Sensory examination islimited but no deficits noted Deep tendon reflexes are1+ and symmetrical in upper andlower extremities. Bilateral plantar flexion response. Hoffmanns sign is negative. There is no clonus or other abnormal reflexes noted. Cerebellar examinationcan not be assessed due the patient's neurological condition Lungs: clear Heart: Regular rhythm and rate Skin: warm and dry - Urinary Catheter Management Indwelling Temp Sensing Catheter Cath placed during this visit: yes, but has since been removed by the nurse Reason for continuing: Not indwelling catheter Insertion date: 06/02/18 Insertion time: 17:55 Removal date: 06/19/18 Removal time: 17:30 Assessment and Plan - Assessment (1) CHI (closed head injury) Code(s): S09.90XA - Unspecified injury of head, initial encounter Status: Acute Qualifiers: Encounter type: initial encounter Qualified Code(s): S09.90XA - Unspecified injury of head, initial encounter - Plan - Assessment (1) CHI (closed head injury) Code(s): S09.90XA - Unspecified injury of head, initial encounter Status: Acute Qualifiers: Encounter type: initial encounter Qualified Code(s): S09.90XA - Unspecified injury of head, initial encounter - Plan (1) CHI (closed head injury) Code(s): S09.90XA - Unspecified injury of head, initial encounter Status: Acute Qualifiers: Encounter type: initial encounter Qualified Code(s): S09.90XA - Unspecified injury of head, initial encounter (2) Fracture of left orbit Code(s): S02.82XA - Fracture of other specified skull and facial bones, left side, initial encounter for closed fracture Status: Acute Qualifiers: Encounter type: initial encounter Fracture type: open Qualified Code(s): S02.82XB - Fracture of other specified skull and facial bones, left side, initial encounter for open fracture (3) Respiratory failure Code(s): J96.90 - Respiratory failure, unspecified, unspecified whether with hypoxia or hypercapnia Status: Acute Qualifiers: Chronicity: acute Respiratory failure complication: hypoxia and hypercapnia Qualified Code(s): J96.01 - Acute respiratory failure with hypoxia ; J96.02 - Acute respiratory failure with hypercapnia (4) Fracture of left orbital floor Code(s): S02.32XA - Fracture of orbital floor, left side, initial encounter for closed fracture Status: Acute (5) Major neurocognitive disorder as late effect of traumatic brain injury with behavioral disturbance Code(s): S06.9X9S - Unspecified intracranial injury with loss of consciousness of unspecified duration, sequela; F02.81 - Dementia in other diseases classified elsewhere with behavioral disturbance Status: Acute (6) HUSAM (acute kidney injury) Code(s): N17.9 - Acute kidney failure, unspecified Status: Acute (7) Hypernatremia Code(s): E87.0 - Hyperosmolality and hypernatremia Status: Acute (8) Fluid overload Code(s): E87.70 - Fluid overload, unspecified Status: Acute Qualifiers: Hypervolemia type: transfusion-associated Qualified Code(s): E87.71 - Transfusion associated circulatory overload - Attending Attestation Mr Domingo remains neurologically stable. Awaiting transfer to [facility] Continue aggressive pulmonary toilette, nasotracheal suction, and breathing treatments with nebulizers. Daily PT and OT Renal: Continue to monitor closely urine output, BUN and creatinine Endocrine: Continue to Monitor serial Acu checks and SSI as needed in detail ID continue to monitor for signs of infection Continue Protonix for stress ulcer prophylaxis Continue Ra hose and SCD's for DVT prophylaxis Discharge planning to [facility]
[2018-06-29] MEDS: Heparin - SQ 10,000 UNITS/ML Vial SQ SCH ×3 (05:42→20:59)
[2018-06-29] MEDS: Oral Hygiene Kit OROPHARYNG SCH ×4 (05:57→18:33)
[2018-06-29] MEDS: QUEtiapine 100 MG Tablet PO SCH ×3 (06:23→20:58)
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
[2018-06-29] MEDS: Famotidine 20 MG Tablet PO SCH ×2 (10:23→20:59)
[2018-06-29] MEDS: OLANZapine 10 MG Tablet PO SCH ×3 (10:24→18:32)
[2018-06-29] MEDS: Senna/Docusate Sodium 8.6/50 MG Tablet PO SCH ×2 (10:25→20:59)
[2018-06-29] MEDS: Hyoscyamine Liq Drops 0.125 MG/ML 15 ML Bottle SL PRN (10:30)
[2018-06-29] MEDS: Chlorhexidine 0.12% Oral Kit 15 ML UDC OROPHARYNG SCH ×2 (10:31→21:02)
[2018-06-29] MEDS: Povidone Iodine 10% Top Soln 118 ML Bottle TOPICAL SCH (10:32)
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
--- NOTE | 2018-06-29 17:31 | P.PNREH ---
Subjective Interval history: Patient agitated over night and this morning but now resting comfortably in bed. Sister at bedside. Review of Systems All other systems reviewed negative except as stated in HPI Exam - Physical Examination Vital Signs / I&O: Vital Signs 06/28/18 20:00 06/28/18 21:33 06/29/18 01:00 Temperature 98.0 F 97.7 F Pulse Rate 74 60 Respiratory Rate 15 19 Blood Pressure 149/95 H 116/80 Pulse Oximetry 96 99 99 06/29/18 05:45 06/29/18 07:38 06/29/18 08:00 Temperature 97.9 F 98.2 F Pulse Rate 74 83 Respiratory Rate 17 20 Blood Pressure 143/90 H 166/93 H Pulse Oximetry 96 97 98 06/29/18 12:00 06/29/18 14:36 Temperature 98.3 F Pulse Rate 77 Respiratory Rate 20 Blood Pressure 169/96 H Pulse Oximetry 99 98 Intake & Output 06/28/18 06/29/18 06/29/18 18:59 06:59 18:59 Intake Total 2176 / 2176 450 / 450 Output Total 1350 / 1350 650 / 650 Balance 826 / 826 -200 / -200 Weight 68.3 kg Intake: Oral 0 / 0 0 / 0 Tube Feeding 506 / 506 300 / 300 Tube Irrigant 120 / 120 150 / 150 Water Bolus Amount 200 / 200 Anesthesia Amount 350 / 350 Other 1000 / 1000 Output: Urine 750 / 750 650 / 650 Gastric Drainage 600 / 600 Gastrostomy Tube (PEG) 600 / 600 Other: Other Intake Source Saline Solution # Voids 4 # Incontinent Voids 3 # Urine Diapers 3 Date of Last Bowel Movement 06/25/18 06/27/18 # Bowel Movements 0 0 # Incontinent Bowel Movements 3 Intake & Output 06/27/18 06/28/18 06/29/18 06/30/18 06:59 06:59 06:59 06:59 Intake Total 3744 / 3744 1611 / 1611 2626 / 2626 Output Total 1800 / 1800 1350 / 1350 1999 / 1999 Balance 194 / 1944 261 / 261 626 / 626 Weight 67.9 kg 61.5 kg 68.3 kg General: No acute distress, Other (Sister at bedside) Respiratory: Other (Trach in place withT-piece; nursing obtaining cap to start capping trials) Date of Last Bowel Movement: 06/27/18 Psychiatric: Cooperative - Neurologic Orientation: oriented to: Self, Place, disoriented to: Time, Situation Neurologic: Other (Moving all extremities to command) Assessment and Plan (1) CHI (closed head injury) Status: Acute Code(s): S09.90XA - Unspecified injury of head, initial encounter Qualifiers: Encounter type: subsequent encounter Qualified Code(s): S09.90XD - Unspecified injury of head, subsequent encounter - Plan 1.Patient in 2 extremity restraints to prevent self removal of trach/PEG and prevent fall. Primary service is working on trach management/decannulation to facilitate transition to inpatient rehab 2. PEG in place and patient is n.p.o. with speech therapy following for severe oropharyngeal dysphagia 3. Patient is progressing with physical therapy with mobility and is now contact-guard to minimal assistance for transfers and ambulating 100 feet 2 with no device CG assist 4. Occupational therapy is addressing ADLs and now moderate assistance for grooming and upper body dressing 5. Will continue to follow Thank you.
--- NOTE | 2018-06-29 18:10 | P.PNNS ---
Subjective Interval history: 06/29. Doing well. Neurologically stable. Awaiting rehab Physical Exam Vital signs: Vital Signs 06/28/18 20:00 06/28/18 21:33 06/29/18 01:00 Temperature 98.0 F 97.7 F Pulse Rate 74 60 Respiratory Rate 15 19 Blood Pressure 149/95 H 116/80 Pulse Oximetry 96 99 99 06/29/18 05:45 06/29/18 07:38 06/29/18 08:00 Temperature 97.9 F 98.2 F Pulse Rate 74 83 Respiratory Rate 17 20 Blood Pressure 143/90 H 166/93 H Pulse Oximetry 96 97 98 06/29/18 12:00 06/29/18 14:36 Temperature 98.3 F Pulse Rate 77 Respiratory Rate 20 Blood Pressure 169/96 H Pulse Oximetry 99 98 Intake & Output 06/28/18 06/29/18 06/29/18 18:59 06:59 18:59 Intake Total 2176 / 2176 450 / 450 Output Total 1350 / 1350 650 / 650 Balance 826 / 826 -200 / -200 Weight 68.3 kg Intake: Oral 0 / 0 0 / 0 Tube Feeding 506 / 506 300 / 300 Tube Irrigant 120 / 120 150 / 150 Water Bolus Amount 200 / 200 Anesthesia Amount 350 / 350 Other 1000 / 1000 Output: Urine 750 / 750 650 / 650 Gastric Drainage 600 / 600 Gastrostomy Tube (PEG) 600 / 600 Other: Other Intake Source Saline Solution # Voids 4 # Incontinent Voids 3 # Urine Diapers 3 Date of Last Bowel Movement 06/25/18 06/27/18 06/27/18 # Bowel Movements 0 0 # Incontinent Bowel Movements 3 Narrative: GENERAL: 57-year-old male lying in bed. SKIN: Warm and dry. HEAD: Normocephalic. EYES: Pupils equal and reactive. ENT: No nasal bleeding or discharge. Mucous membranes pink and moist. 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 Trachea midline. No JVD. CARDIOVASCULAR: Regular rate and rhythm. RESPIRATORY: T-piece in place. Lungs are clear to auscultation. Breath sounds equal bilaterally. GASTROINTESTINAL: BS + x 4 quads. Abdomen soft, non-tender, nondistended. PEG tube in place to feedings. MUSCULOSKELETAL: Extremities without cyanosis, or edema. + perfused, MAEW. NEUROLOGICAL: Lethargic, arouses to voice. Talking over trach. - Urinary Catheter Management Indwelling Temp Sensing Catheter Cath placed during this visit: yes, but has since been removed by the nurse Reason for continuing: Not indwelling catheter Insertion date: 06/02/18 Insertion time: 17:55 Removal date: 06/19/18 Removal time: 17:30 Assessment and Plan - Assessment (1) CHI (closed head injury) Code(s): S09.90XA - Unspecified injury of head, initial encounter Status: Acute Qualifiers: Encounter type: subsequent encounter Qualified Code(s): S09.90XD - Unspecified injury of head, subsequent encounter - Plan - Assessment (1) CHI (closed head injury) Code(s): S09.90XA - Unspecified injury of head, initial encounter Status: Acute Qualifiers: Encounter type: initial encounter Qualified Code(s): S09.90XA - Unspecified injury of head, initial encounter - Plan (1) CHI (closed head injury) Code(s): S09.90XA - Unspecified injury of head, initial encounter Status: Acute Qualifiers: Encounter type: initial encounter Qualified Code(s): S09.90XA - Unspecified injury of head, initial encounter (2) Fracture of left orbit Code(s): S02.82XA - Fracture of other specified skull and facial bones, left side, initial encounter for closed fracture Status: Acute Qualifiers: Encounter type: initial encounter Fracture type: open Qualified Code(s): S02.82XB - Fracture of other specified skull and facial bones, left side, initial encounter for open fracture (3) Respiratory failure Code(s): J96.90 - Respiratory failure, unspecified, unspecified whether with hypoxia or hypercapnia Status: Acute Qualifiers: Chronicity: acute Respiratory failure complication: hypoxia and hypercapnia Qualified Code(s): J96.01 - Acute respiratory failure with hypoxia ; J96.02 - Acute respiratory failure with hypercapnia (4) Fracture of left orbital floor Code(s): S02.32XA - Fracture of orbital floor, left side, initial encounter for closed fracture Status: Acute (5) Major neurocognitive disorder as late effect of traumatic brain injury with behavioral disturbance Code(s): S06.9X9S - Unspecified intracranial injury with loss of consciousness of unspecified duration, sequela; F02.81 - Dementia in other diseases classified elsewhere with behavioral disturbance Status: Acute (6) HUSAM (acute kidney injury) Code(s): N17.9 - Acute kidney failure, unspecified Status: Acute (7) Hypernatremia Code(s): E87.0 - Hyperosmolality and hypernatremia Status: Acute (8) Fluid overload Code(s): E87.70 - Fluid overload, unspecified Status: Acute Qualifiers: Hypervolemia type: transfusion-associated Qualified Code(s): E87.71 - Transfusion associated circulatory overload - Attending Attestation Mr Domingo remains neurologically stable. Awaiting transfer to [facility] Continue aggressive pulmonary toilette, nasotracheal suction, and breathing treatments with nebulizers. Daily PT and OT Renal: Continue to monitor closely urine output, BUN and creatinine Endocrine: Continue to Monitor serial Acu checks and SSI as needed in detail ID continue to monitor for signs of infection Continue Protonix for stress ulcer prophylaxis Continue Ra hose and SCD's for DVT prophylaxis Discharge planning to [facility]
[2018-06-30] MEDS: Oral Hygiene Kit OROPHARYNG SCH ×5 (00:19→15:02)
[2018-06-30 03:42] LABS: Baso # (Auto) 0.2 th/mm3 (0.0-0.2); Eos # (Auto) 0.2 th/mm3 (0.0-0.4); Eos % (Auto) 2.2 % (0.0-4.0); Hematocrit 35.5 % (39.0-51.0); Hemoglobin 11.7 gm/dL (13.0-17.0); Lymph # (Auto) 2.2 th/mm3 (1.0-4.8); Lymph % (Auto) 26.4 % (9.0-44.0); Mean Corpuscular HGB Conc 32.9 % (32.0-36.0); Mean Corpuscular Hemoglobin 32.3 pg (27.0-34.0); Mean Corpuscular Volume 98.4 fL (80.0-100.0); Mean Platelet Volume 7.8 fL (7.0-11.0); Mono # (Auto) 0.9 th/mm3 (0.0-0.9); Mono % (Auto) 11.2 % (0.0-8.0); Neut # (Auto) 4.9 th/mm3 (1.8-7.7); Neut % (Auto) 58.2 % (16.0-70.0); Platelet Count 391 th/mm3 (150-450); Red Blood Count 3.61 mil/mm3 (4.50-5.90); Red Cell Distribution Width 13.7 % (11.6-17.2); White Blood Count 8.5 th/mm3 (4.0-11.0)
[2018-06-30 03:54] LABS: Alanine Aminotransferase 23 U/L (12-78); Albumin 3.3 g/dL (3.4-5.0); Anion Gap 8 meq/L (5-15); Aspartate Aminotransferase 12 U/L (15-37); Blood Urea Nitrogen 28 mg/dL (7-18); Calcium 9.2 mg/dL (8.5-10.1); Carbon Dioxide 24.8 meq/L (21.0-32.0); Chloride 116 meq/L (98-107); Glomerular Filtration Rate 53 mL/min (>89); Glucose,Random 127 mg/dL (74-106); Potassium 4.1 meq/L (3.5-5.1); Sodium 149 meq/L (136-145)
[2018-06-30 03:57] LABS: Alkaline Phosphatase 108 U/L (45-117); Total Protein 8.6 g/dL (6.4-8.2)
[2018-06-30] MEDS: Heparin - SQ 10,000 UNITS/ML Vial SQ SCH ×3 (05:34→21:28)
[2018-06-30] MEDS: QUEtiapine 100 MG Tablet PO SCH ×3 (07:32→21:26)
[2018-06-30] MEDS: Chlorhexidine 0.12% Oral Kit 15 ML UDC OROPHARYNG SCH ×2 (08:24→21:27)
[2018-06-30] MEDS: OLANZapine 10 MG Tablet PO SCH ×3 (08:24→17:17)
[2018-06-30] MEDS: Famotidine 20 MG Tablet PO SCH ×2 (08:25→21:26)
[2018-06-30] MEDS: Senna/Docusate Sodium 8.6/50 MG Tablet PO SCH ×2 (08:25→21:26)
[2018-06-30] MEDS: Povidone Iodine 10% Top Soln 118 ML Bottle TOPICAL SCH (08:27)
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
[2018-06-30] MEDS: Hyoscyamine Liq Drops 0.125 MG/ML 15 ML Bottle SL PRN (12:54)
[2018-07-01] MEDS: Oral Hygiene Kit OROPHARYNG SCH ×4 (04:38→15:27)
[2018-07-01] MEDS: QUEtiapine 100 MG Tablet PO SCH ×3 (07:00→21:18)
[2018-07-01] MEDS: Heparin - SQ 10,000 UNITS/ML Vial SQ SCH ×3 (07:01→21:19)
[2018-07-01] MEDS: OLANZapine 10 MG Tablet PO SCH ×3 (08:30→17:20)
[2018-07-01] MEDS: Senna/Docusate Sodium 8.6/50 MG Tablet PO SCH ×2 (08:30→21:18)
[2018-07-01] MEDS: Famotidine 20 MG Tablet PO SCH ×2 (08:30→21:18)
[2018-07-01] MEDS: Chlorhexidine 0.12% Oral Kit 15 ML UDC OROPHARYNG SCH ×2 (08:31→21:19)
[2018-07-01] MEDS: Povidone Iodine 10% Top Soln 118 ML Bottle TOPICAL SCH (08:32)
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
[2018-07-02] MEDS: Oral Hygiene Kit OROPHARYNG SCH ×4 (00:11→19:44)
[2018-07-02] MEDS: QUEtiapine 100 MG Tablet PO SCH (06:15)
[2018-07-02] MEDS: Heparin - SQ 10,000 UNITS/ML Vial SQ SCH ×3 (06:15→22:22)
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
[2018-07-02] MEDS: OLANZapine 10 MG Tablet PO SCH ×3 (09:14→19:17)
[2018-07-02] MEDS: Senna/Docusate Sodium 8.6/50 MG Tablet PO SCH ×2 (09:14→22:23)
[2018-07-02] MEDS: Famotidine 20 MG Tablet PO SCH ×2 (09:14→22:22)
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
[2018-07-02] MEDS: QUEtiapine 25 MG Tablet PO SCH (14:04)
[2018-07-02] MEDS: Chlorhexidine 0.12% Oral Kit 15 ML UDC OROPHARYNG SCH ×2 (18:06→22:24)
[2018-07-02] MEDS: Povidone Iodine 10% Top Soln 118 ML Bottle TOPICAL SCH (18:09)
[2018-07-02] MEDS ORDERED: Haloperidol Inj 5 MG/ML Ampul IV.PUSH ONE (19:00)
[2018-07-02] MEDS ORDERED: QUEtiapine 100 MG Tablet PO SCH (21:00)
[2018-07-03] MEDS: Oral Hygiene Kit OROPHARYNG SCH ×4 (00:08→21:45)
[2018-07-03] MEDS: Heparin - SQ 10,000 UNITS/ML Vial SQ SCH ×3 (06:01→21:39)
[2018-07-03] MEDS: QUEtiapine 25 MG Tablet PO SCH ×2 (06:04→14:03)
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
[2018-07-03] MEDS: Senna/Docusate Sodium 8.6/50 MG Tablet PO SCH ×2 (09:48→21:40)
[2018-07-03] MEDS: OLANZapine 10 MG Tablet PO SCH ×3 (09:48→17:30)
[2018-07-03] MEDS: Famotidine 20 MG Tablet PO SCH ×2 (09:48→21:40)
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
[2018-07-03] MEDS: Chlorhexidine 0.12% Oral Kit 15 ML UDC OROPHARYNG SCH ×2 (17:40→21:45)
[2018-07-03] MEDS ORDERED: QUEtiapine 100 MG Tablet PO SCH (21:00)
[2018-07-03] MEDS: Povidone Iodine 10% Top Soln 118 ML Bottle TOPICAL SCH (21:45)
[2018-07-04] MEDS: Oral Hygiene Kit OROPHARYNG SCH ×2 (04:53→22:05)
[2018-07-04] MEDS: Heparin - SQ 10,000 UNITS/ML Vial SQ SCH ×3 (05:53→22:30)
[2018-07-04] MEDS: QUEtiapine 25 MG Tablet PO SCH ×2 (06:01→14:44)
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
[2018-07-04] MEDS: Famotidine 20 MG Tablet PO SCH ×2 (08:49→22:29)
[2018-07-04] MEDS: Senna/Docusate Sodium 8.6/50 MG Tablet PO SCH ×2 (08:49→22:30)
[2018-07-04] MEDS: OLANZapine 10 MG Tablet PO SCH ×3 (08:49→17:38)
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
[2018-07-04] MEDS: Chlorhexidine 0.12% Oral Kit 15 ML UDC OROPHARYNG SCH ×2 (22:03→22:04)
[2018-07-04] MEDS: Povidone Iodine 10% Top Soln 118 ML Bottle TOPICAL SCH (22:03)
[2018-07-04] MEDS: QUEtiapine 100 MG Tablet PO SCH (22:29)
[2018-07-05] MEDS: Oral Hygiene Kit OROPHARYNG SCH ×5 (02:31→23:10)
[2018-07-05] MEDS: QUEtiapine 25 MG Tablet PO SCH ×2 (06:37→13:46)
[2018-07-05] MEDS: Heparin - SQ 10,000 UNITS/ML Vial SQ SCH ×3 (06:37→21:54)
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
[2018-07-05] MEDS: Chlorhexidine 0.12% Oral Kit 15 ML UDC OROPHARYNG SCH ×2 (08:55→21:54)
[2018-07-05] MEDS: Povidone Iodine 10% Top Soln 118 ML Bottle TOPICAL SCH (08:55)
[2018-07-05] MEDS: OLANZapine 10 MG Tablet PO SCH ×3 (08:55→18:27)
[2018-07-05] MEDS: Famotidine 20 MG Tablet PO SCH ×2 (08:55→21:54)
[2018-07-05] MEDS: Senna/Docusate Sodium 8.6/50 MG Tablet PO SCH ×2 (08:57→21:54)
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
[2018-07-05 18:58] LABS: Baso # (Auto) 0.1 th/mm3 (0.0-0.2); Baso % (Auto) 0.6 % (0.0-2.0); Eos # (Auto) 0.2 th/mm3 (0.0-0.4); Eos % (Auto) 2.7 % (0.0-4.0); Hematocrit 32.5 % (39.0-51.0); Hemoglobin 10.7 gm/dL (13.0-17.0); Mean Corpuscular Hemoglobin 32.5 pg (27.0-34.0); Mean Corpuscular Volume 98.2 fL (80.0-100.0); Mean Platelet Volume 8.8 fL (7.0-11.0); Mono % (Auto) 11.1 % (0.0-8.0); Neut # (Auto) 5.8 th/mm3 (1.8-7.7); Neut % (Auto) 63.6 % (16.0-70.0); Platelet Count 258 th/mm3 (150-450); Red Blood Count 3.31 mil/mm3 (4.50-5.90); Red Cell Distribution Width 13.2 % (11.6-17.2)
[2018-07-05 19:27] LABS: Calcium 8.6 mg/dL (8.5-10.1); Carbon Dioxide 25.9 meq/L (21.0-32.0); Potassium 4.2 meq/L (3.5-5.1)
[2018-07-05] MEDS: QUEtiapine 100 MG Tablet PO SCH (21:55)
[2018-07-06] MEDS: QUEtiapine 25 MG Tablet PO SCH (06:02)
[2018-07-06] MEDS: Heparin - SQ 10,000 UNITS/ML Vial SQ SCH ×3 (06:03→21:08)
[2018-07-06] MEDS: Oral Hygiene Kit OROPHARYNG SCH ×3 (06:03→18:21)
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
[2018-07-06] MEDS: OLANZapine 10 MG Tablet PO SCH ×3 (09:23→18:20)
[2018-07-06] MEDS: Famotidine 20 MG Tablet PO SCH ×2 (09:23→21:07)
[2018-07-06] MEDS: Povidone Iodine 10% Top Soln 118 ML Bottle TOPICAL SCH (09:24)
[2018-07-06] MEDS: Chlorhexidine 0.12% Oral Kit 15 ML UDC OROPHARYNG SCH ×2 (09:24→21:08)
[2018-07-06] MEDS: Senna/Docusate Sodium 8.6/50 MG Tablet PO SCH ×2 (09:25→21:08)
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
--- NOTE | 2018-07-06 16:14 | P.PNREH ---
Subjective Interval history: Patient resting comfortably in bed. Briefly awakes to voice. Appears to deny any pain complaints. No shortness of breath noted. Review of Systems unobtainable due to mental status, other (As previously documented) Exam - Physical Examination Vital Signs / I&O: Vital Signs 07/05/18 20:00 07/06/18 00:00 07/06/18 04:00 Temperature 98.3 F 98.4 F 98.4 F Pulse Rate 94 H 96 H 89 Respiratory Rate 18 20 18 Blood Pressure 130/86 133/85 139/87 Pulse Oximetry 100 96 96 07/06/18 07:38 07/06/18 08:00 07/06/18 12:00 Temperature 98.7 F 99.6 F Pulse Rate 101 H 98 H Respiratory Rate 17 19 19 Blood Pressure 139/90 142/97 H Pulse Oximetry 96 Intake & Output 07/05/18 07/06/18 07/06/18 18:59 06:59 18:59 Intake Total 1140 / 1140 100 / 100 Output Total 603 / 603 Balance 537 / 537 100 / 100 Weight 65.5 kg 66 kg Intake: Oral 0 / 0 100 / 100 Tube Feeding 720 / 720 Tube Irrigant 120 / 120 Water Bolus Amount 300 / 300 Output: Urine 3 / 3 Gastric Drainage 600 / 600 Gastrostomy Tube (PEG) 600 / 600 Other: # Voids 4 1 Date of Last Bowel Movement 07/05/18 07/05/18 07/05/18 # Bowel Movements 1 Intake & Output 07/04/18 07/05/18 07/06/18 07/07/18 06:59 06:59 06:59 06:59 Intake Total 1240 / 1240 Output Total 350 / 350 350 / 350 603 / 603 Balance -350 / -350 -350 / -350 637 / 637 Weight 65.5 kg 66 kg General: No acute distress Respiratory: Other (Trach site with dressing and no significant drainage) Date of Last Bowel Movement: 07/05/18 Psychiatric: Other (Patient is drowsy; briefly opens eyes to voice but goes back to sleep) - Neurologic Orientation: oriented to: Self, disoriented to: Place, unable to assess: Time Neurologic: Other (Moves both upper and lower extremities to command) Objective Laboratory Results - last 24 hr 07/05/18 07/05/18 07/05/18 17:25 18:26 18:26 WBC 9.0 RBC 3.31 L Hgb 10.7 L Hct 32.5 L MCV 98.2 MCH 32.5 MCHC 33.0 RDW 13.2 Plt Count 258 D MPV 8.8 Neut % (Auto) 63.6 Lymph % (Auto) 22.0 Pratt % (Auto) 11.1 H Eos % (Auto) 2.7 Baso % (Auto) 0.6 Neut # (Auto) 5.8 Lymph # (Auto) 2.0 Pratt # (Auto) 1.0 H Eos # (Auto) 0.2 Baso # (Auto) 0.1 WBC Differential . Differential Comment Auto diff final Sodium 142 Potassium 4.2 Chloride 109 H Carbon Dioxide 25.9 Anion Gap 7 BUN 18 Creatinine 1.19 Estimated GFR 63 L Random Glucose 102 Calcium 8.6 Valproic Acid 91 Assessment and Plan (1) CHI (closed head injury) Status: Acute Code(s): S09.90XA - Unspecified injury of head, initial encounter Qualifiers: Encounter type: subsequent encounter Qualified Code(s): S09.90XD - Unspecified injury of head, subsequent encounter - Plan 1. Psychiatry has increased Seroquel to 200 mg 3 times daily to help with agitation. Neuropsychology is following. 2. PEG in place and patient is now receiving pured diet with thin liquids per modified barium swallow/speech therapy recommendation 3. Patient is progressing with physical therapy with mobility and is now contact-guard to minimal assistance for transfers and ambulating up to 400 feet with contact-guard 4. Occupational therapy is addressing ADLs and limited primarily due to cognitive limitations 5. Case management is addressing discharge planning possibly to inpatient redilatation [facility] bed versus home with continued home health 6. Will follow regarding ongoing rehab needs as psychiatric medications are adjusted
[2018-07-07] MEDS: Oral Hygiene Kit OROPHARYNG SCH ×2 (01:22→05:52)
[2018-07-07] MEDS: Heparin - SQ 10,000 UNITS/ML Vial SQ SCH ×3 (05:52→22:43)
[2018-07-07] MEDS: OLANZapine 10 MG Tablet PO SCH ×2 (08:10→14:18)
[2018-07-07] MEDS: Senna/Docusate Sodium 8.6/50 MG Tablet PO SCH ×2 (08:10→22:43)
[2018-07-07] MEDS: Famotidine 20 MG Tablet PO SCH ×2 (08:10→22:43)
[2018-07-07] MEDS: Povidone Iodine 10% Top Soln 118 ML Bottle TOPICAL SCH (08:12)
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
[2018-07-08] MEDS: Heparin - SQ 10,000 UNITS/ML Vial SQ SCH ×3 (06:36→21:53)
[2018-07-08] MEDS: Senna/Docusate Sodium 8.6/50 MG Tablet PO SCH ×2 (08:06→21:52)
[2018-07-08] MEDS: Famotidine 20 MG Tablet PO SCH ×2 (08:06→21:52)
[2018-07-08] MEDS: Povidone Iodine 10% Top Soln 118 ML Bottle TOPICAL SCH (08:07)
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
[2018-07-09] MEDS: Heparin - SQ 10,000 UNITS/ML Vial SQ SCH ×3 (06:22→21:15)
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
[2018-07-09] MEDS: Famotidine 20 MG Tablet PO SCH ×2 (08:56→21:13)
[2018-07-09] MEDS: Senna/Docusate Sodium 8.6/50 MG Tablet PO SCH ×2 (08:56→21:17)
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
[2018-07-10] MEDS: Heparin - SQ 10,000 UNITS/ML Vial SQ SCH ×3 (05:52→21:27)
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
--- NOTE | 2018-07-10 09:22 | P.PNNS ---
Subjective Interval history: Mr Domingo is awake and alert, confused, with periods of impulsiveness Physical Exam Vital signs: Vital Signs 07/09/18 12:00 07/09/18 16:00 07/09/18 21:20 Temperature 97.4 F L 98.2 F 97.8 F Pulse Rate 82 78 81 Respiratory Rate 16 16 18 Blood Pressure 131/72 133/82 148/96 H Pulse Oximetry 96 100 100 07/10/18 08:00 Temperature 97.2 F L Pulse Rate 65 Respiratory Rate 18 Blood Pressure 170/98 H Pulse Oximetry 100 Intake & Output 07/09/18 07/10/18 07/10/18 18:59 06:59 18:59 Weight 64.8 kg Other: # Incontinent Voids 2 Date of Last Bowel Movement 07/09/18 # Incontinent Bowel Movements 1 Narrative: Mr Domingo is alert, awake. Comfortable, in no acute distress. Speech is fluent. Cranial nerve examination: pupils to be equal, round and reactive to light. Extra-ocular movements are intact. Facial motor and sensory function are normal and symmetrical. Gross hearing appears intact. Sternocleidomastoid and trapezius muscles are symmetrical. Other cranial nerves are intact. Neck is soft and supple with a good range of motion without pain. Muscle strength is normal in all muscle groups of both upper and lower extremities. Sensory examination is intact to light touch and pin prick in both the upper and lower extremities. Deep tendon reflexes are symmetrical in both upper and lower extremities. There is a bilateral plantar flexion response. Cerebellar examination is unremarkable, without deficits. Lungs are clear Heart regular rhythm is regular rate Skin warm and dry - Urinary Catheter Management Indwelling Temp Sensing Catheter Cath placed during this visit: yes, but has since been removed by the nurse Reason for continuing: Not indwelling catheter Insertion date: 06/02/18 Insertion time: 17:55 Removal date: 06/19/18 Removal time: 17:30 Assessment and Plan - Assessment (1) CHI (closed head injury) Code(s): S09.90XA - Unspecified injury of head, initial encounter Status: Acute Qualifiers: Encounter type: subsequent encounter Qualified Code(s): S09.90XD - Unspecified injury of head, subsequent encounter - Plan A/P (1) CHI (closed head injury) Code(s): S09.90XA - Unspecified injury of head, initial encounter Status: Acute Qualifiers: Encounter type: initial encounter Qualified Code(s): S09.90XA - Unspecified injury of head, initial encounter (2) Fracture of left orbit Code(s): S02.82XA - Fracture of other specified skull and facial bones, left side, initial encounter for closed fracture Status: Acute Qualifiers: Encounter type: initial encounter Fracture type: open Qualified Code(s): S02.82XB - Fracture of other specified skull and facial bones, left side, initial encounter for open fracture (3) Respiratory failure Code(s): J96.90 - Respiratory failure, unspecified, unspecified whether with hypoxia or hypercapnia Status: Acute Qualifiers: Chronicity: acute Respiratory failure complication: hypoxia and hypercapnia Qualified Code(s): J96.01 - Acute respiratory failure with hypoxia ; J96.02 - Acute respiratory failure with hypercapnia (4) Fracture of left orbital floor Code(s): S02.32XA - Fracture of orbital floor, left side, initial encounter for closed fracture Status: Acute (5) Major neurocognitive disorder as late effect of traumatic brain injury with behavioral disturbance Code(s): S06.9X9S - Unspecified intracranial injury with loss of consciousness of unspecified duration, sequela; F02.81 - Dementia in other diseases classified elsewhere with behavioral disturbance Status: Acute (6) HUSAM (acute kidney injury) Code(s): N17.9 - Acute kidney failure, unspecified Status: Acute (7) Hypernatremia Code(s): E87.0 - Hyperosmolality and hypernatremia Status: Acute (8) Fluid overload Code(s): E87.70 - Fluid overload, unspecified Status: Acute Qualifiers: Hypervolemia type: transfusion-associated Qualified Code(s): E87.71 - Transfusion associated circulatory overload - Attending Attestation Mr Domingo is neurologically stable. Awaiting transfer to [facility] Continue aggressive pulmonary toilette, nasotracheal suction, and breathing treatments with nebulizers. Daily PT and OT Renal: Continue to monitor closely urine output, BUN and creatinine Endocrine: Continue to Monitor serial Acu checks and SSI as needed in detail ID continue to monitor for signs of infection Continue Protonix for stress ulcer prophylaxis Continue Ra hose and SCD's for DVT prophylaxis OK with neurosurgery to discharge planning to [facility]
[2018-07-10] MEDS: Famotidine 20 MG Tablet PO SCH ×2 (09:59→21:27)
[2018-07-10] MEDS: Senna/Docusate Sodium 8.6/50 MG Tablet PO SCH ×2 (10:00→21:27)
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
[2018-07-11] MEDS: Heparin - SQ 10,000 UNITS/ML Vial SQ SCH ×3 (05:46→21:37)
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
[2018-07-11] MEDS: Famotidine 20 MG Tablet PO SCH ×2 (09:19→21:36)
[2018-07-11] MEDS: Senna/Docusate Sodium 8.6/50 MG Tablet PO SCH ×2 (09:23→21:37)
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
--- NOTE | 2018-07-11 17:27 | P.PNREH ---
Exam - Physical Examination Vital Signs / I&O: Vital Signs 07/10/18 20:00 07/11/18 08:00 07/11/18 12:00 Temperature 98.4 F 97.5 F L 98.3 F Pulse Rate 94 H 69 84 Respiratory Rate 18 18 18 Blood Pressure 138/97 H 165/91 H 134/78 Pulse Oximetry 96 100 99 07/11/18 13:05 07/11/18 15:37 07/11/18 16:00 Temperature 98.4 F Pulse Rate 87 Respiratory Rate 12 12 18 Blood Pressure 118/78 Pulse Oximetry 98 Intake & Output 07/10/18 07/11/18 07/11/18 18:59 06:59 18:59 Intake Total 0 / 0 1640 / 1640 Balance 0 / 0 1640 / 1640 Intake: Oral 0 / 0 1640 / 1640 Other: # Voids 2 5 # Incontinent Voids 2 1 # Urine Diapers 1 Date of Last Bowel Movement 07/09/18 07/09/18 07/10/18 # Bowel Movements 1 0 Intake & Output 07/09/18 07/10/18 07/11/18 07/12/18 06:59 06:59 06:59 06:59 Intake Total 180 / 180 1640 / 1640 Balance 180 / 180 1640 / 1640 Weight 65 kg 64.8 kg General: No acute distress, Other (Family at bedside; patient is sitting up in bedside chair) Date of Last Bowel Movement: 07/10/18 Psychiatric: Cooperative - Neurologic Orientation: oriented to: Self (Impulsive but able to be redirected), Place, disoriented to: Time Neurologic: Speech (Clear), Other (Moves both upper and lower extremities with intact strength) Balance: Sitting (Sit to stand transfers independent standing balance is good; patient's gait is steady) Assessment and Plan (1) CHI (closed head injury) Status: Acute Code(s): S09.90XA - Unspecified injury of head, initial encounter Qualifiers: Encounter type: subsequent encounter Qualified Code(s): S09.90XD - Unspecified injury of head, subsequent encounter - Plan 1. Psychiatry/neuropsychology are following to manage agitation and impulsivity 2. PEG is been removed and patient is now cleared for regular diet with thin liquids 3. Transfers and gait are independent and patient is being mobilized by physical therapy. 4. Occupational therapy is addressing ADLs and supervision due to cognitive issues 5. Case management is addressing discharge planning with family for discharge home 6. Will continue to follow regarding ongoing rehab needs
[2018-07-12 04:02] LABS: Baso # (Auto) 0.1 th/mm3 (0.0-0.2); Baso % (Auto) 1.3 % (0.0-2.0); Eos # (Auto) 0.3 th/mm3 (0.0-0.4); Eos % (Auto) 5.6 % (0.0-4.0); Hematocrit 29.1 % (39.0-51.0); Hemoglobin 9.9 gm/dL (13.0-17.0); Lymph # (Auto) 2.2 th/mm3 (1.0-4.8); Lymph % (Auto) 41.9 % (9.0-44.0); Mean Corpuscular Hemoglobin 32.9 pg (27.0-34.0); Mean Corpuscular Volume 96.8 fL (80.0-100.0); Mean Platelet Volume 7.9 fL (7.0-11.0); Mono # (Auto) 0.6 th/mm3 (0.0-0.9); Mono % (Auto) 12.1 % (0.0-8.0); Neut % (Auto) 39.1 % (16.0-70.0); Platelet Count 250 th/mm3 (150-450); Red Blood Count 3.01 mil/mm3 (4.50-5.90); Red Cell Distribution Width 13.1 % (11.6-17.2); White Blood Count 5.2 th/mm3 (4.0-11.0)
[2018-07-12 04:31] LABS: Calcium 8.8 mg/dL (8.5-10.1); Carbon Dioxide 26.3 meq/L (21.0-32.0); Potassium 4.4 meq/L (3.5-5.1)
[2018-07-12] MEDS: Heparin - SQ 10,000 UNITS/ML Vial SQ SCH ×3 (05:10→21:16)
[2018-07-12] MEDS: Senna/Docusate Sodium 8.6/50 MG Tablet PO SCH ×2 (10:06→21:16)
[2018-07-12] MEDS: Famotidine 20 MG Tablet PO SCH ×2 (10:07→21:16)
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
[2018-07-13] MEDS: Heparin - SQ 10,000 UNITS/ML Vial SQ SCH ×3 (05:07→21:01)
[2018-07-13] MEDS: Famotidine 20 MG Tablet PO SCH ×2 (08:38→20:55)
[2018-07-13] MEDS: Senna/Docusate Sodium 8.6/50 MG Tablet PO SCH ×2 (08:42→20:55)
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
[2018-07-14] MEDS: Heparin - SQ 10,000 UNITS/ML Vial SQ SCH ×3 (05:45→21:28)
[2018-07-14] MEDS: Famotidine 20 MG Tablet PO SCH ×2 (08:17→21:26)
[2018-07-14] MEDS: Senna/Docusate Sodium 8.6/50 MG Tablet PO SCH ×2 (08:17→21:27)
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
[2018-07-14] MEDS: OLANZapine 10 MG Tablet PO SCH (17:15)
[2018-07-15] MEDS: Heparin - SQ 10,000 UNITS/ML Vial SQ SCH ×3 (05:52→21:50)
[2018-07-15] MEDS: Famotidine 20 MG Tablet PO SCH ×2 (08:38→21:50)
[2018-07-15] MEDS: Senna/Docusate Sodium 8.6/50 MG Tablet PO SCH ×2 (08:38→21:50)
[2018-07-15] MEDS: OLANZapine 10 MG Tablet PO SCH ×3 (08:38→17:11)
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
[2018-07-16] MEDS: Heparin - SQ 10,000 UNITS/ML Vial SQ SCH ×3 (05:42→21:00)
[2018-07-16] MEDS: OLANZapine 10 MG Tablet PO SCH ×3 (09:28→17:14)
[2018-07-16] MEDS: Famotidine 20 MG Tablet PO SCH ×2 (09:28→20:38)
[2018-07-16] MEDS: Senna/Docusate Sodium 8.6/50 MG Tablet PO SCH ×2 (09:29→20:38)
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
--- NOTE | 2018-07-16 16:00 | P.DIET ---
Nutritional Evaluation Type of nutrition evaluation: follow-up (TF d/c'ed) Nutrition consult regarding: Tube Feeding Subjective Subjective Comments: Eating 100% at most meals. Objective - Diagnosis CHI, fx L orbit. Trauma - Objective % IBW: 81 (IBW = 178#) Body Weight Used for Calculations: Actual (65.5) Energy Needs - Lower Range (kCal/kg): 30 Energy Needs - Upper Range (kCal/kg): 35 Lower Limit kCal/kg (kCals): 1,965 Upper Limit kCal/kg (kCals): 2,293 Lower Limit Protein Factor (Grams per Kg): 1.2 Upper Limit Protein Factor (Grams per Kg): 1.6 Lower Protein Needs (Protein): 79 Upper Protein Needs (Protein): 105 Dietitian Reviewed in Medical Record: Current diet, Curent medications, Intake & Output, Labs, Medical history Diet Order: Regular, Ensure Enlive tid Oral Diet Intake Amount: Excellent 90%+ Speech Therapy Recommendations: Yes (regular diet) Assessment Assessment: TF has been d/c'ed d/t the pt having pulled out his PEG. He has advanced to a regular diet with good po intake. Drinks the Ensure Enlive and it provides 350 kcals and 20 gms protein per 8 oz serving. Family is also bringing food from home. CBW = 68.2 kg with a BMI of 20.4. Pt is with improving nutritional status , especially now that diet is regular. Recommendations: Continue current POC. Consult RD if needed.
[2018-07-17] MEDS: Heparin - SQ 10,000 UNITS/ML Vial SQ SCH ×2 (05:02→13:14)
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
[2018-07-17] MEDS ORDERED: OLANZapine 10 MG Tablet PO SCH (09:00)
[2018-07-17] MEDS: Famotidine 20 MG Tablet PO SCH (09:02)
[2018-07-17] MEDS: Senna/Docusate Sodium 8.6/50 MG Tablet PO SCH (09:02)
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
== END 2018-07-17 14:38 | disposition home or self-care (01) ==
LOC: NEPI 14:36 → MERGE 14:55 → NEDA 14:55 → EDBD 14:55 → N03 15:27 → N05 06-29 00:17
PROVIDERS: ADMIT Surgery; ATTEND Surgery
PROC: PANENDO (2018-06-15 12:55)